=== PATIENT | female | born 1995 | race Caucasian/White ===

== ENCOUNTER 2018-07-14 20:51 | Emergency (ER) | payer OTHER ==
[2018-07-14] MEDS ORDERED: Albuterol/Ipratropium 3.0-0.5 MG/3 ML Neb Soln NEB ONE (20:55)
[2018-07-14] MEDS ORDERED: Famotidine 20 MG/2 ML SDV IVPUSH ONE (20:56)
[2018-07-14] MEDS ORDERED: methylPREDNISolone Sodium Succinate 125 MG/2 ML SDV IVPUSH ONE (20:56)
--- NOTE | 2018-07-14 21:00 | EDM.PDOC ---
ED HPI GENERAL MEDICAL PROBLEM - General Chief Complaint: Respiratory Problem Stated Complaint: UNKNOWN Time Seen by Provider: 07/14/18 20:55 Source of Information: Reports: Patient History Limitations: Reports: No Limitations - History of Present Illness INITIAL COMMENTS - FREE TEXT/NARRATIVE: HISTORY AND PHYSICAL: History of present illness: Patient is a 23-year-old female who presents to the emergency room with concerns of having an asthma attack. She states she is having difficulty breathing, although oxygen saturation is 100% and has clear lung sounds bilaterally. She states she was eating dinner when she started to have some epigastric pain and discomfort. [place] like she was "out of it" for a few seconds , but did not pass out or have a syncopal event. She took some drinks of water; pain continued and she became short of breathe. Decided to come to the ER for evaluation. Patient denies any fever, chills, headache, change in vision, syncope or near syncope. Denies any chest pain, back pain, or cough. Denies any vomiting, diarrhea, constipation or dysuria. Denies any chance of . Has not noted any blood in urine or stool. Patient has been eating and drinking appropriately. Review of systems: As per history of present illness and below otherwise all systems reviewed and negative. Past medical history: As per history of present illness and as reviewed below otherwise noncontributory. Surgical history: As per history of present illness and as reviewed below otherwise noncontributory. Social history: See social history for further information Family history: As per history of present illness and as reviewed below otherwise noncontributory. Physical exam: General: Well-developed and well-nourished 23-year-old female. Anxious appearing , alert and oriented. Nontoxic appearing and in no acute distress. HEENT: Atraumatic, normocephalic, pupils equal and reactive bilaterally, negative for conjunctival pallor or scleral icterus, mucous membranes moist, TMs normal bilaterally, throat clear, neck supple, nontender, trachea midline. No drooling or trismus noted. No meningeal signs. No hot potato voice noted. Lungs: Clear to auscultation, breath sounds equal bilaterally, chest nontender. Heart: S1S2, regular rate and rhythm without overt murmur Abdomen: Soft, nondistended, epigastric tenderness. Negative for masses or hepatosplenomegaly. Negative for costovertebral tenderness. Pelvis: Stable nontender. Genitourinary: Deferred. Rectal: Deferred. Skin: Intact, warm, dry. No lesions or rashes noted. Extremities: Atraumatic, moves all extremities per self with difficulty or deficits, negative for cords or calf pain. Neurovascular unremarkable. Neuro: Awake, alert, oriented. Cranial nerves II through XII unremarkable. Cerebellum unremarkable. Motor and sensory unremarkable throughout. Exam nonfocal. Notes: Patient reports that she does have a history of "stomach ulcers" but has never had to take any medications for this. Patient states she feels improved after the breathing treatment; oxygen sats remain 100%. Lung sounds have been clear throughout ER visit. Appears to may have had an anxiety component related to her respiratory complaints. Waiting remaining labs, which DR Hook will follow. Diagnostics: CBC, CMP, H.pylori Therapeutics: IV fluids, Pepcid, Solu-medrol, Duo Neb, GI cocktail Impression: Epigastric Pain Plan: 1. Crisp diet over the next 24 hours. Advance as tolerated. 2. Follow up with your primary care provider as discussed. 3. Return to the ED as needed as discussed. Definitive disposition and diagnosis as appropriate pending reevaluation and review of above. Middle Abdomen Pain Score (Numeric/FACES): 10 - Related Data Allergies Allergy/AdvReac Type Severity Reaction Status Date / Time amoxicillin Allergy Other Verified 07/14/18 20:58 Penicillins Allergy Other Verified 07/14/18 20:58 Home Meds: Home Meds . [No Known Home Meds] 07/14/18 [History] ED ROS GENERAL - Review of Systems Review Of Systems: ROS reveals no pertinent complaints other than HPI. ED EXAM, GENERAL - Physical Exam Exam: See Below (See dictation) Course - Vital Signs Last Recorded V/S: Last Vital Signs Temp 97.5 F 07/14/18 20:56 Pulse 79 07/14/18 20:56 Resp 26 H 07/14/18 20:56 BP 123/91 H 07/14/18 20:56 Pulse Ox 100 07/14/18 20:56 - Orders/Labs/Meds Orders: Active Orders 24 hr Category Date Time Status RT Aerosol Therapy [RC] ASDIRECTED Care 07/14/18 20:56 Active COMPREHENSIVE METABOLIC PN,CMP [CHEM] Stat Lab 07/14/18 21:20 Received HELICOBACTER PYLORI AB IGG [CHEM] Stat Lab 07/14/18 21:20 Received Labs: Laboratory Tests 07/14/18 Range/Units 21:20 WBC 8.48 (4.0-11.0) K/uL RBC 4.35 (4.30-5.90) M/uL Hgb 12.8 (12.0-16.0) g/dL Hct 38.6 (36.0-46.0) % MCV 88.7 (80.0-98.0) fL MCH 29.4 (27.0-32.0) pg MCHC 33.2 (31.0-37.0) g/dL RDW Std Deviation 39.6 (28.0-62.0) fl RDW Coeff of Corey 12 (11.0-15.0) % Plt Count 251 (150-400) K/uL MPV 9.70 (7.40-12.00) fL Neut % (Auto) 75.9 (48.0-80.0) % Lymph % (Auto) 20.2 (16.0-40.0) % Douglas % (Auto) 3.2 (0.0-15.0) % Eos % (Auto) 0.2 (0.0-7.0) % Baso % (Auto) 0.5 (0.0-1.5) % Neut # (Auto) 6.4 H (1.4-5.7) K/uL Lymph # (Auto) 1.7 (0.6-2.4) K/uL Douglas # (Auto) 0.3 (0.0-0.8) K/uL Eos # (Auto) 0.0 (0.0-0.7) K/uL Baso # (Auto) 0.0 (0.0-0.1) K/uL Nucleated RBC % 0.0 /100WBC Nucleated RBCs # 0 K/uL Meds: Medications Discontinued Medications Generic Name Dose Route Start Last Admin Trade Name Freq PRN Reason Stop Dose Admin Albuterol/Ipratropium 3 ml 07/14/18 20:55 07/14/18 21:00 Duoneb 3.0-0.5 Mg/3 Ml NEB 07/14/18 20:56 3 ml ONETIME ONE Administration Al Hydroxide/Mg Hydroxide 15 0 ml 07/14/18 21:58 ml/ Metoclopramide HCl 5 mg/ PO 07/14/18 21:59 Lidocaine HCl 5 ml ONETIME ONE Famotidine 20 mg 07/14/18 20:56 07/14/18 21:31 Pepcid IVPUSH 07/14/18 20:57 20 mg ONETIME ONE Administration Methylprednisolone Sodium Succinate 125 mg 07/14/18 20:56 07/14/18 21:24 Solu-Medrol IVPUSH 07/14/18 20:57 125 mg ONETIME ONE Administration Departure - Departure Time of Disposition: 21:59 Disposition: Home, Self-Care 01 Clinical Impression: Epigastric pain - Discharge Information Forms: ED Department Discharge Additional Instructions: The following information is given to patients seen in the emergency department who are being discharged to home. This information is to outline your options for follow-up care. We provide all patients seen in our emergency department with a follow-up referral. The need for follow-up, as well as the timing and circumstances, are variable depending upon the specifics of your emergency department visit. If you don't have a primary care physician on staff, we will provide you with a referral. We always advise you to contact your personal physician following an emergency department visit to inform them of the circumstance of the visit and for follow-up with them and/or the need for any referrals to a consulting specialist. The emergency department will also refer you to a specialist when appropriate. This referral assures that you have the opportunity for follow-up care with a specialist. All of these measure are taken in an effort to provide you with optimal care, which includes your follow-up. Under all circumstances we always encourage you to contact your private physician who remains a resource for coordinating your care. When calling for follow-up care, please make the office aware that this follow-up is from your recent emergency room visit. If for any reason you are refused follow-up, please contact the Emergency Department at and asked to speak to the emergency department charge nurse. [facility] [address] [place] [id number] [place] [address] 1. Crisp diet over the next 24 hours. Advance as tolerated. 2. Follow up with your primary care provider as discussed. 3. Return to the ED as needed as discussed. - My Orders Last 24 Hours: My Active Orders 07/14/18 20:56 RT Aerosol Therapy [RC] ASDIRECTED 07/14/18 21:20 COMPREHENSIVE METABOLIC PN,CMP [CHEM] Stat HELICOBACTER PYLORI AB IGG [CHEM] Stat - Assessment/Plan Last 24 Hours: My Active Orders 07/14/18 20:56 RT Aerosol Therapy [RC] ASDIRECTED 07/14/18 21:20 COMPREHENSIVE METABOLIC PN,CMP [CHEM] Stat HELICOBACTER PYLORI AB IGG [CHEM] Stat
[2018-07-14] MEDS ORDERED: Alum Hydrox/Mag Hydrox/Simeth 15 ML, Metoclopramide 5 MG, Lidocaine 2% 5 ML PO ONE ×3 (21:58)
[2018-07-14 22:03] LABS: CHLORIDE,CL 103 mmol/L (98-107); SODIUM,NA 141 mmol/L (136-145)
== END 2018-07-14 22:19 | disposition home or self-care (01) ==
LOC: MW.ED 20:51
DX: R10.13 Epigastric pain (principal); Z88.1 Allergy status to other antibiotic agents; Z88.0 Allergy status to penicillin
CPT/HCPCS: 36415; 80053; 85025; 86677; 96374; 96375; 99285; A9270; J2930; J3490; 99283; J7620-GY

== ENCOUNTER 2018-11-17 14:36 | Emergency (ER) | payer SELFPAY ==
--- NOTE | 2018-11-17 14:39 | EDM.PDOC ---
ED HPI GENERAL MEDICAL PROBLEM - General Stated Complaint: THROAT COMPLAINT Time Seen by Provider: 11/17/18 14:38 Source of Information: Reports: Patient History Limitations: Reports: No Limitations - History of Present Illness INITIAL COMMENTS - FREE TEXT/NARRATIVE: HISTORY AND PHYSICAL: History of present illness: Patient is a 23-year-old female who presents to the emergency room with complaints of throat pain. She states she does have a history of having strep and tonsillitis 1-2 times per year. She has been told in the past that she should have a tonsillectomy, although is fearful of this procedure. Patient denies any fever, chills, headache, change in vision, syncope or near syncope. Denies any chest pain, back pain, shortness of breath or cough. Denies any GI or symptoms. Patient has been eating and drinking appropriately. Review of systems: As per history of present illness and below otherwise all systems reviewed and negative. Past medical history: As per history of present illness and as reviewed below otherwise noncontributory. Surgical history: As per history of present illness and as reviewed below otherwise noncontributory. Social history: See social history for further information Family history: As per history of present illness and as reviewed below otherwise noncontributory. Physical exam: General: Well-developed and well-nourished 23-year-old female. Alert and oriented. Nontoxic appearing and in no acute distress. HEENT: Atraumatic, normocephalic, pupils equal and reactive bilaterally, negative for conjunctival pallor or scleral icterus, mucous membranes moist, TMs normal bilaterally, throat erythematous with exudate bilaterally (no pillar shifting/fullness), neck supple, nontender, trachea midline. No drooling or trismus noted. No meningeal signs. No hot potato voice noted. Lungs: Clear to auscultation, breath sounds equal bilaterally, chest nontender. Heart: S1S2, regular rate and rhythm without overt murmur Abdomen: Soft, nondistended, nontender. Skin: Intact, warm, dry. No lesions or rashes noted. Extremities: Atraumatic, moves all extremities per self without difficulty or deficits, negative for cords or calf pain. Neurovascular unremarkable. Neuro: Awake, alert, oriented. Cranial nerves II through XII unremarkable. Cerebellum unremarkable. Motor and sensory unremarkable throughout. Exam nonfocal. Notes: Due to physical assessment I will treat with antibiotics. She does have allergies to amoxicillin and penicillin, Z-Van prescribed. Supportive care measures were reviewed and discussed. Voices understanding and is agreeable to plan of care. Denies any further questions or concerns at this time. Diagnostics: None Therapeutics: None Prescription: Zapk Impression: Strep Throat Plan: 1. Take your medication as directed. 2. Warm Salt water gargles (rinse and spit) 3-4 x daily. Please get a new tooth brush after completion of your medication 3. Tylenol and or ibuprofen as needed for pain management. 4. Follow-up with your primary care provider in the next 1-2 days. Return to the ED as needed and as discussed. Definitive disposition and diagnosis as appropriate pending reevaluation and review of above. Throat Pain Score (Numeric/FACES): 7 - Related Data Allergies Allergy/AdvReac Type Severity Reaction Status Date / Time amoxicillin Allergy Swelling Verified 11/17/18 14:42 Penicillins Allergy Swelling Verified 11/17/18 14:42 red dye Allergy Hives Verified 11/17/18 14:42 Home Meds: Home Meds Azithromycin [Zithromax] 1 dose PO DAILY 5 Days #6 tab 11/17/18 [Rx] Past Medical History - Past Health History Medical/Surgical History: Denies Medical/Surgical History Social & Family History - Family History Family Medical History: Noncontributory ED ROS ENT - Review of Systems Review Of Systems: ROS reveals no pertinent complaints other than HPI. ED EXAM, ENT - Physical Exam Exam: See Below (See dictation) Course - Vital Signs Last Recorded V/S: Last Vital Signs Temp 97.2 F 11/17/18 14:42 Pulse 86 11/17/18 14:59 Resp 16 11/17/18 14:59 BP 128/69 11/17/18 14:59 Pulse Ox 97 11/17/18 14:59 Departure - Departure Time of Disposition: 14:49 Disposition: Home, Self-Care 01 Clinical Impression: Tonsillitis - Discharge Information Prescriptions: Azithromycin [Zithromax] 1 dose PO DAILY 5 Days #6 tab Instructions: Tonsillitis, [id number] Referrals: PCP,Unknown [Primary Care Provider] - Forms: ED Department Discharge Additional Instructions: The following information is given to patients seen in the emergency department who are being discharged to home. This information is to outline your options for follow-up care. We provide all patients seen in our emergency department with a follow-up referral. The need for follow-up, as well as the timing and circumstances, are variable depending upon the specifics of your emergency department visit. If you don't have a primary care physician on staff, we will provide you with a referral. We always advise you to contact your personal physician following an emergency department visit to inform them of the circumstance of the visit and for follow-up with them and/or the need for any referrals to a consulting specialist. The emergency department will also refer you to a specialist when appropriate. This referral assures that you have the opportunity for follow-up care with a specialist. All of these measure are taken in an effort to provide you with optimal care, which includes your follow-up. Under all circumstances we always encourage you to contact your private physician who remains a resource for coordinating your care. When calling for follow-up care, please make the office aware that this follow-up is from your recent emergency room visit. If for any reason you are refused follow-up, please contact the [facility] Emergency Department at and asked to speak to the emergency department charge nurse. [facility] [address] [place] [id number] [facility] [address] [place] [id number] 1. Take your medication as directed. 2. Warm Salt water gargles (rinse and spit) 3-4 x daily. Please get a new tooth brush after completion of your medication 3. Tylenol and or ibuprofen as needed for pain management. 4. Follow-up with your primary care provider in the next 1-2 days. Return to the ED as needed and as discussed.
== END 2018-11-17 14:59 | disposition home or self-care (01) ==
LOC: MW.ED 14:36
DX: J02.0 Streptococcal pharyngitis (principal); Z88.1 Allergy status to other antibiotic agents; Z88.0 Allergy status to penicillin; Z91.041 Radiographic dye allergy status
CPT/HCPCS: 99282; 99283

== ENCOUNTER 2018-11-19 19:20 | Emergency (ER) | payer SELFPAY ==
[2018-11-19] MEDS ORDERED: Benzocaine 20% Topical Spray UD MUCMEM ONE (20:04)
[2018-11-19] MEDS ORDERED: Lidocaine 2% Viscous Solution 15 ML Cup PO ONE (20:04)
--- NOTE | 2018-11-19 20:08 | EDM.PDOC ---
ED HPI GENERAL MEDICAL PROBLEM - General Chief Complaint: General Stated Complaint: TONSILITIS Time Seen by Provider: 11/19/18 19:44 Source of Information: Reports: Patient History Limitations: Reports: No Limitations - History of Present Illness INITIAL COMMENTS - FREE TEXT/NARRATIVE: HISTORY AND PHYSICAL: History of present illness: Patient is a 23-year-old female presents to the ED today for concern of left- sided tooth pain 2 days. Patient states she was seen in the ED a few days ago and was treated for tonsillitis. Patient states she took the antibiotics as prescribed and her tonsillitis has improved, and her throat is no longer painful. However, patient states she began to have bottom tooth pain on the left side where her wisdom tooth is growing in shortly after improvement of her tonsils. Patient states she's been taking ibuprofen, Tylenol, and had some leftover oxycodone and states isnt helping much. Patient states the tooth pain radiates into her left and down to the front of her jaw. Patient states she has surgery scheduled in one month to get her wisdom tooth removed. Patient states she has been able to eat and drink without difficulty as long she chews on the other side of her mouth. Patient denies any other symptoms or concerns at this time. Patient was seen in the ED on 11/17/18 with complaints of throat pain. At that time patient was treated for strep tonsillitis/pharyngitis with Azithromycin. There is no mention of tooth pain at that time. Patient denies fever, chills, chest pain, shortness of breath, or cough. Denies headache, neck stiff ness, change in vision, syncope, or near syncope. Denies nausea, vomiting, abdominal pain, diarrhea, constipation, or dysuria. Has not noted any blood in urine or stool. Patient has been eating and drinking appropriately. Review of systems: As per history of present illness and below otherwise all systems reviewed and negative. Past medical history: As per history of present illness and as reviewed below otherwise noncontributory. Surgical history: As per history of present illness and as reviewed below otherwise noncontributory. Social history: See social history for further information Family history: As per history of present illness and as reviewed below otherwise noncontributory. Physical exam: General: Patient is alert, oriented, and in no acute distress. Patient sitting comfortably on exam table. HEENT: Atraumatic, normocephalic, pupils equal and reactive bilaterally, negative for conjunctival pallor or scleral icterus, mucous membranes moist, TMs normal bilaterally, throat clear, neck supple, nontender, trachea midline. No meningeal signs. No drooling or trismus noted.No hot potato voice noted. The area of gumline where tooth #17 would be located, there is small surfacing of the tooth in the gumline with surrounding erythema of the gumline with mild erythema surrounding the surfacing tooth. Severe pain with palpation of this area. No surrounding edema of the mandible. No obvious swelling of the face or neck. Negative pain with palpation of mandible or neck, negative lymphadenopathy. Lungs: Clear to auscultation, breath sounds equal bilaterally, chest nontender. Heart: S1S2, regular rate and rhythm without overt murmur Abdomen: Soft, nondistended, nontender. Negative for masses or hepatosplenomegaly. Negative for costovertebral tenderness. Pelvis: Stable nontender. Genitourinary: Deferred. Rectal: Deferred. Skin: Intact, warm, dry. No lesions or rashes noted. Extremities: Atraumatic, negative for cords or calf pain. Neurovascular unremarkable. Neuro: Awake, alert, oriented. Cranial nerves II through XII unremarkable. Cerebellum unremarkable. Motor and sensory unremarkable throughout. Exam nonfocal. Notes: Patient was treated for tonsillitis 2 days ago and states that her tonsils have improved. On exam, her tonsils appear without exudate and nonerythematous. On exam, the potential for early dental abscess versus pain with discomfort of ingrowing wisdom tooth. Will give antibiotic for dental abscess as well as dental balls for pain. Discussed the importance for follow-up with the dentist. Voices understanding and is agreeable to plan of care. Denies any further questions or concerns at this time. Diagnostics: None Therapeutics: Dental balls Prescription: Clindamycin Impression: Dental abscess vs ingrowing tooth discomfort Plan: 1. Please take medication as prescribed. 2. Tylenol and/or ibuprofen as directed and as needed for pain management. 3. "Tooth Balls" have been given to you; apply along the gumline every 2-3 hours as needed. Do not swallow these; external use only. 4. Follow-up with a dentist for definitive care. Return to the ED as needed and as discussed. Definitive disposition and diagnosis as appropriate pending reevaluation and review of above. wisdom tooth Pain Score (Numeric/FACES): 10 - Related Data Allergies Allergy/AdvReac Type Severity Reaction Status Date / Time amoxicillin Allergy Swelling Verified 11/17/18 14:42 Penicillins Allergy Swelling Verified 11/17/18 14:42 red dye Allergy Hives Verified 11/17/18 14:42 Home Meds: Home Meds Azithromycin [Zithromax] 1 dose PO DAILY 5 Days #6 tab 11/17/18 [Rx] Past Medical History - Past Health History Medical/Surgical History: Denies Medical/Surgical History HEENT History: Reports: None Cardiovascular History: Reports: None Respiratory History: Reports: None Gastrointestinal History: Reports: None Genitourinary History: Reports: None 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 Musculoskeletal History: Reports: None Neurological History: Reports: None Psychiatric History: Reports: None Endocrine/Metabolic History: Reports: None Hematologic History: Reports: None Oncologic (Cancer) History: Reports: None - Infectious Disease History Infectious Disease History: Reports: None Social & Family History - Family History Family Medical History: Noncontributory - Tobacco Use Smoking Status *Q: Never Smoker - Caffeine Use Caffeine Use: Reports: None - Recreational Drug Use Recreational Drug Use: No ED ROS GENERAL - Review of Systems Review Of Systems: ROS reveals no pertinent complaints other than HPI. ED EXAM, GENERAL - Physical Exam Exam: See Below (See dictation) Course - Vital Signs Last Recorded V/S: Last Vital Signs Temp 36.6 C 11/19/18 19:36 Pulse 75 11/19/18 19:36 Resp 14 11/19/18 19:36 BP 136/84 11/19/18 19:36 Pulse Ox 98 11/19/18 19:36 - Orders/Labs/Meds Meds: Medications Discontinued Medications Generic Name Dose Route Start Last Admin Trade Name Freq PRN Reason Stop Dose Admin Benzocaine 2 each 11/19/18 20:04 11/19/18 20:20 Hurricaine One 20% MUCMEM 11/19/18 20:05 2 each ONETIME ONE Administration Lidocaine HCl 15 ml 11/19/18 20:04 11/19/18 20:20 Xylocaine 2% Viscous PO 11/19/18 20:05 15 ml ONETIME ONE Administration Departure - Departure Time of Disposition: 20:07 Disposition: Home, Self-Care 01 Clinical Impression: Dental abscess, Tooth pain - Discharge Information Instructions: Dental Abscess, [id number] Referrals: PCP,None [Primary Care Provider] - Forms: ED Department Discharge Additional Instructions: The following information is given to patients seen in the emergency department who are being discharged to home. This information is to outline your options for follow-up care. We provide all patients seen in our emergency department with a follow-up referral. The need for follow-up, as well as the timing and circumstances, are variable depending upon the specifics of your emergency department visit. If you don't have a primary care physician on staff, we will provide you with a referral. We always advise you to contact your personal physician following an emergency department visit to inform them of the circumstance of the visit and for follow-up with them and/or the need for any referrals to a consulting specialist. The emergency department will also refer you to a specialist when appropriate. This referral assures that you have the opportunity for follow-up care with a specialist. All of these measure are taken in an effort to provide you with optimal care, which includes your follow-up. Under all circumstances we always encourage you to contact your private physician who remains a resource for coordinating your care. When calling for follow-up care, please make the office aware that this follow-up is from your recent emergency room visit. If for any reason you are refused follow-up, please contact the [facility] Emergency Department at and asked to speak to the emergency department charge nurse. [facility] Primary Care [address] [place] [id number] [address] 1. Please take medication as prescribed. 2. Tylenol and/or ibuprofen as directed and as needed for pain management. 3. "Tooth Balls" have been given to you; apply along the gumline every 2-3 hours as needed. Do not swallow these; external use only. 4. Follow-up with a dentist for definitive care. Return to the ED as needed and as discussed.
== END 2018-11-19 20:21 | disposition home or self-care (01) ==
LOC: MW.ED 19:20
DX: K04.7 Periapical abscess without sinus (principal); Z88.0 Allergy status to penicillin; Z91.018 Allergy to other foods
CPT/HCPCS: 99282; A9270

== ENCOUNTER 2018-12-23 15:59 | Emergency (ER) | payer SELFPAY ==
[2018-12-23] MEDS ORDERED: Sodium Chloride 0.9% 1,000 ML IV ONE ×2 (16:21→19:13)
--- NOTE | 2018-12-23 16:22 | EDM.PDOC ---
ED HPI GENERAL MEDICAL PROBLEM - General Chief Complaint: ENT Problem Stated Complaint: SORE THROAT, RASH, HEADACHE Time Seen by Provider: 12/23/18 16:22 Source of Information: Reports: Patient - History of Present Illness INITIAL COMMENTS - FREE TEXT/NARRATIVE: HISTORY AND PHYSICAL: History of present illness: [She presents with persistent sore throat over the last month she has been on a couple of rounds of antibiotics azithromycin and clindamycin she is scheduled to see ENT in [facility] however not until early January Fever nausea vomiting chills sweats no muffled voice drooling or trismus] Review of systems: As per history of present illness and below otherwise all systems reviewed and negative. Past medical history: As per history of present illness and as reviewed below otherwise noncontributory. Surgical history: As per history of present illness and as reviewed below otherwise noncontributory. Social history: No reported history of drug or alcohol abuse. Family history: As per history of present illness and as reviewed below otherwise noncontributory. Physical exam: HEENT: Atraumatic, normocephalic, pupils reactive, negative for conjunctival pallor or scleral icterus, mucous membranes moist, throat clear, neck supple, nontender, trachea midline. Moderate erythema anterior lymph node chains swelling no muffled voice drooling or trismus however white patchy exudate noted Lungs: Clear to auscultation, breath sounds equal bilaterally, chest nontender. Heart: S1S2, regular, negative for clicks, rubs, or JVD. Abdomen: Soft, nondistended, nontender. Negative for masses or hepatosplenomegaly. Negative for costovertebral tenderness. Pelvis: Stable nontender. Genitourinary: Deferred. Rectal: Deferred. Extremities: Atraumatic, negative for cords or calf pain. Neurovascular unremarkable. Neuro: Awake, alert, oriented. Cranial nerves II through XII unremarkable. Cerebellum unremarkable. Motor and sensory unremarkable throughout. Exam nonfocal. Diagnostics: [CT soft tissue neck CBC BMP ] Therapeutics: decadron 10 mg IV Prednisone 20 mg by mouth daily 5 days Clindamycin Follow-up with ENT as scheduled Follow-up with primary care as needed ] Impression: [ pharyngitis] Definitive disposition and diagnosis as appropriate pending reevaluation and review of above. Throat Pain Score (Numeric/FACES): 9 - Related Data Allergies Allergy/AdvReac Type Severity Reaction Status Date / Time amoxicillin Allergy Swelling Verified 12/23/18 16:07 Penicillins Allergy Swelling Verified 12/23/18 16:07 red dye Allergy Hives Verified 12/23/18 16:07 Home Meds: Home Meds . [No Known Home Meds] 12/23/18 [History] Past Medical History - Past Health History Medical/Surgical History: Denies Medical/Surgical History HEENT History: Reports: Other (See Below) Other HEENT History: recurrent tonsilitis. 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 Musculoskeletal History: Reports: None Neurological History: Reports: None Psychiatric History: Reports: Anxiety Endocrine/Metabolic History: Reports: None Hematologic History: Reports: None Immunologic History: Reports: None Oncologic (Cancer) History: Reports: None Dermatologic History: Reports: None - Infectious Disease History Infectious Disease History: Reports: None - Past Surgical History Head Surgeries/Procedures: Reports: None Social & Family History - Family History Family Medical History: Noncontributory - Tobacco Use Smoking Status *Q: Never Smoker - Caffeine Use Caffeine Use: Reports: None - Recreational Drug Use Recreational Drug Use: No ED ROS GENERAL - Review of Systems Review Of Systems: See Below ED EXAM, GENERAL - Physical Exam Exam: See Below Course - Vital Signs Last Recorded V/S: Last Vital Signs Temp 97.6 F 12/23/18 16:04 Pulse 94 12/23/18 18:36 Resp 20 12/23/18 18:36 BP 122/81 12/23/18 18:36 Pulse Ox 98 12/23/18 18:36 - Orders/Labs/Meds Orders: Active Orders 24 hr Category Date Time Status HCG QUALITATIVE,URINE [URCHEM] Stat Lab 12/23/18 16:20 Ordered UA RFX JAVI AND CULT IF INDIC [URIN] Stat Lab 12/23/18 16:20 Ordered Sodium Chloride 0.9% [Normal Saline] 1,000 ml Med 12/23/18 19:13 Ordered IV STAT Labs: Laboratory Tests 12/23/18 12/23/18 12/23/18 Range/Units 16:30 16:30 16:30 WBC 8.36 (4.0-11.0) K/uL RBC 4.43 (4.30-5.90) M/uL Hgb 13.1 (12.0-16.0) g/dL Hct 40.2 (36.0-46.0) % MCV 90.7 (80.0-98.0) fL MCH 29.6 (27.0-32.0) pg MCHC 32.6 (31.0-37.0) g/dL RDW Std Deviation 42.0 (28.0-62.0) fl RDW Coeff of Corey 13 (11.0-15.0) % Plt Count 217 (150-400) K/uL MPV 9.90 (7.40-12.00) fL Neut % (Auto) 76.8 (48.0-80.0) % Lymph % (Auto) 14.0 L (16.0-40.0) % [place] % (Auto) 9.0 (0.0-15.0) % Eos % (Auto) 0.0 (0.0-7.0) % Baso % (Auto) 0.2 (0.0-1.5) % Neut # (Auto) 6.4 H (1.4-5.7) K/uL Lymph # (Auto) 1.2 (0.6-2.4) K/uL [place] # (Auto) 0.8 (0.0-0.8) K/uL Eos # (Auto) 0.0 (0.0-0.7) K/uL Baso # (Auto) 0.0 (0.0-0.1) K/uL Nucleated RBC % 0.0 /100WBC Nucleated RBCs # 0 K/uL Sodium 139 (136-145) mmol/L Potassium 3.8 (3.5-5.1) mmol/L Chloride 102 (98-107) mmol/L Carbon Dioxide 27.3 (21.0-32.0) mmol/L BUN 9 (7.0-18.0) mg/dL Creatinine 0.9 (0.6-1.0) mg/dL Est Cr Clr Drug Dosing 91.79 mL/min Estimated GFR (MDRD) > 60.0 ml/min Glucose 94 (74-106) mg/dL Calcium 9.2 (8.5-10.1) mg/dL HCG, Qual NEGATIVE (NEG) Meds: Medications Discontinued Medications Generic Name Dose Route Start Last Admin Trade Name Arnav PRN Reason Stop Dose Admin Dexamethasone 10 mg 12/23/18 18:50 12/23/18 18:58 Dexamethasone IVPUSH 12/23/18 18:51 10 mg ONETIME ONE Administration Sodium Chloride 1,000 mls @ 999 mls/hr 12/23/18 16:21 12/23/18 16:37 Normal Saline IV 12/23/18 17:21 999 mls/hr STAT ONE Administration Iopamidol 75 ml 12/23/18 18:55 12/23/18 18:55 Isovue Multipack-370 (76%) IVPUSH 12/23/18 18:56 75 ml ONETIME STA Administration Departure - Departure Time of Disposition: 19:15 Disposition: Home, Self-Care 01 Condition: Good Clinical Impression: Pharyngitis - Discharge Information Referrals: PCP,Unknown [Primary Care Provider] - Forms: ED Department Discharge Additional Instructions: Dictation as prescribed Follow-up with ENT as scheduled Follow-up with primary care as needed reTurn er if symptoms persist or worsen or if new concerning symptoms develop [facility] - Primary Care [address] [place] [address] The following information is given to patients seen in the emergency department who are being discharged to home. This information is to outline your options for follow-up care. We provide all patients seen in our emergency department with a follow-up referral. The need for follow-up, as well as the timing and circumstances, are variable depending upon the specifics of your emergency department visit. If you don't have a primary care physician on staff, we will provide you with a referral. We always advise you to contact your personal physician following an emergency department visit to inform them of the circumstance of the visit and for follow-up with them and/or the need for any referrals to a consulting specialist. The emergency department will also refer you to a specialist when appropriate. This referral assures that you have the opportunity for follow-up care with a specialist. All of these measure are taken in an effort to provide you with optimal care, which includes your follow-up. Under all circumstances we always encourage you to contact your private physician who remains a resource for coordinating your care. When calling for follow-up care, please make the office aware that this follow-up is from your recent emergency room visit. If for any reason you are refused follow-up, please contact the [facility] emergency department at and asked to speak to the emergency department charge nurse. - My Orders Last 24 Hours: My Active Orders 12/23/18 16:20 HCG QUALITATIVE,URINE [URCHEM] Stat UA RFX JAVI AND CULT IF INDIC [URIN] Stat 12/23/18 19:13 Sodium Chloride 0.9% [Normal Saline] 1,000 ml IV STAT - Assessment/Plan Last 24 Hours: My Active Orders 12/23/18 16:20 HCG QUALITATIVE,URINE [URCHEM] Stat UA RFX JAVI AND CULT IF INDIC [URIN] Stat 12/23/18 19:13 Sodium Chloride 0.9% [Normal Saline] 1,000 ml IV STAT
[2018-12-23 16:59] LABS: BLOOD UREA NITROGEN,BUN 9 mg/dL (7.0-18.0); CARBON DIOXIDE,CO2 27.3 mmol/L (21.0-32.0); CHLORIDE,CL 102 mmol/L (98-107); GLUCOSE RANDOM 94 mg/dL (74-106); POTASSIUM,K 3.8 mmol/L (3.5-5.1); SODIUM,NA 139 mmol/L (136-145)
[2018-12-23] MEDS ORDERED: Dexamethasone 10 MG/ML SDV IVPUSH ONE (18:50)
[2018-12-23] MEDS ORDERED: Iopamidol 755 MG/ML 500 ML Multipack Bottle IVPUSH STA (18:55)
--- NOTE | 2018-12-23 19:04 | CT ---
INDICATION: Neck pain. Rule out abscess. COMPARISON: None available TECHNIQUE: CT examination of the neck is performed using spiral technique during the uneventful intravenous administration of 98 cc of Isovue 370. 3 mm thick axial sections were made along with coronal and sagittal sections. Please note that all CT scans at this facility use dose modulation, iterative reconstruction, and/or weight-based dosing when appropriate to reduce radiation dose to as low as reasonably achievable. FINDINGS: I do not see any inflammatory process, mass, or swelling on today`s study. The airway structures are normal in appearance. There is mild prominence of the lymph nodes in the submandibular regions, right greater than left, without reaching the threshold to be describes lymphadenopathy. The short-axis diameter of the right-sided level 1 B lymph node is 1.3 centimeters and of the left side level 1 B lymph node is 1.0 centimeters. There is no sign of cervical mass or adenopathy on today`s study. The salivary glands are normal in appearance. The visualized posterior fossa, mastoids, skull base, orbits, and paranasal sinuses are normal in appearance. The great vessels are unremarkable. The thyroid gland is normal in appearance. The visualized upper chest is clear. The visualized upper mediastinum is normal in appearance. The osseous structures are unremarkable. IMPRESSION: Mild prominence of lymph nodes in the submandibular region, right greater than left, without reaching the threshold to be described as lymphadenopathy. These are probably reactive lymph nodes. Otherwise normal CT examination of the neck with contrast. Please note that all CT scans at this facility use dose modulation, iterative reconstruction, and/or weight-based dosing when appropriate to reduce radiation dose to as low as reasonably achievable. Dictated by Rom Eldridge MD @ Dec 23 2018 6:57PM Signed by Dr. Rom Eldridge @ Dec 23 2018 7:01PM
[2018-12-23] MEDS ORDERED: Lidocaine 2% Viscous Solution 15 ML Cup PO ONE (19:59)
== END 2018-12-23 20:22 | disposition home or self-care (01) ==
LOC: MW.ED 15:59
DX: J02.9 Acute pharyngitis, unspecified (principal); Z88.1 Allergy status to other antibiotic agents; Z88.0 Allergy status to penicillin; Z91.041 Radiographic dye allergy status
CPT/HCPCS: 36415; 70491; 80048; 84703; 85025; 96361; 96374; 99284; A9270; J1100; J7040; Q9967

== ENCOUNTER 2018-12-25 22:22 | Emergency (ER) | payer SELFPAY ==
[2018-12-25] MEDS ORDERED: Sodium Chloride 0.9% 1,000 ML IV ONE (22:43)
[2018-12-25 23:26] LABS: BLOOD UREA NITROGEN,BUN 12 mg/dL (7.0-18.0); CARBON DIOXIDE,CO2 27.1 mmol/L (21.0-32.0); CHLORIDE,CL 99 mmol/L (98-107); GLUCOSE RANDOM 123 mg/dL (74-106); POTASSIUM,K 3.3 mmol/L (3.5-5.1); SODIUM,NA 135 mmol/L (136-145)
--- NOTE | 2018-12-26 00:27 | EDM.PDOC ---
ED HPI GENERAL MEDICAL PROBLEM - General Chief Complaint: ENT Problem Stated Complaint: UNABLE TO WALK Time Seen by Provider: 12/25/18 22:37 - History of Present Illness INITIAL COMMENTS - FREE TEXT/NARRATIVE: HISTORY AND PHYSICAL: History of present illness: Patient is a 23-year-old female sensory concern of sore throat and dehydration patient states she's been seen on multiple occasions had an workup including CT of her neck that was negative for any abscess she has had a full course of antibiotics with her initial visit and a subsequent course that she is currently in the middle of. Patient denies fever chills or other concern Review of systems: As per history of present illness and below otherwise all systems reviewed and negative. Past medical history: As per history of present illness and as reviewed below otherwise noncontributory. Surgical history: As per history of present illness and as reviewed below otherwise noncontributory. Social history: No reported history of drug or alcohol abuse. Family history: As per history of present illness and as reviewed below otherwise noncontributory. Physical exam: HEENT: Atraumatic, normocephalic, pupils reactive, negative for conjunctival pallor or scleral icterus, mucous membranes moist, throat injected no peritonsillar fullness over her deviation trismus or hot potato voice, neck supple, nontender, trachea midline. Lungs: Clear to auscultation, breath sounds equal bilaterally, chest nontender. Heart: S1S2, regular, negative for clicks, rubs, or JVD. Abdomen: Soft, nondistended, nontender. Negative for masses or hepatosplenomegaly. Negative for costovertebral tenderness. Pelvis: Stable nontender. Genitourinary: Deferred. Rectal: Deferred. Extremities: Atraumatic, negative for cords or calf pain. Neurovascular unremarkable. Neuro: Awake, alert, oriented. Cranial nerves II through XII unremarkable. Cerebellum unremarkable. Motor and sensory unremarkable throughout. Exam nonfocal. Diagnostics: CBC CMP lactic acid monoscreen UA UCG Therapeutics: Saline 1 L bolus Impression: #1 dehydration #2 medical screening exam #3 pharyngitis Definitive disposition and diagnosis as appropriate pending reevaluation and review of above. Throat Pain Score (Numeric/FACES): 9 - Related Data Allergies Allergy/AdvReac Type Severity Reaction Status Date / Time amoxicillin Allergy Swelling Verified 12/25/18 22:34 Penicillins Allergy Swelling Verified 12/25/18 22:34 red dye Allergy Hives Verified 12/25/18 22:34 Home Meds: Home Meds . [No Known Home Meds] 12/23/18 [History] Past Medical History - Past Health History Medical/Surgical History: Denies Medical/Surgical History HEENT History: Reports: Other (See Below) Other HEENT History: recurrent tonsilitis. 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 Musculoskeletal History: Reports: None Neurological History: Reports: None Psychiatric History: Reports: Anxiety Endocrine/Metabolic History: Reports: None Hematologic History: Reports: None Immunologic History: Reports: None Oncologic (Cancer) History: Reports: None Dermatologic History: Reports: None - Infectious Disease History Infectious Disease History: Reports: None - Past Surgical History Head Surgeries/Procedures: Reports: None Social & Family History - Family History Family Medical History: Noncontributory - Tobacco Use Smoking Status *Q: Never Smoker Second Hand Smoke Exposure: No - Caffeine Use Caffeine Use: Reports: Coffee - Recreational Drug Use Recreational Drug Use: No ED ROS GENERAL - Review of Systems Review Of Systems: ROS reveals no pertinent complaints other than HPI. ED EXAM, GENERAL - Physical Exam Exam: See Below (Dictation) Course - Vital Signs Last Recorded V/S: Last Vital Signs Temp 36.9 C 12/25/18 22:34 Pulse 99 12/25/18 22:34 Resp 18 12/25/18 22:34 BP 104/73 12/25/18 22:34 Pulse Ox 96 12/25/18 22:34 - Orders/Labs/Meds Orders: Active Orders 24 hr Category Date Time Status CULTURE BLOOD [BC] Stat Lab 12/25/18 23:01 Received CULTURE BLOOD [BC] Stat Lab 12/25/18 23:10 Received CULTURE STREP A CONFIRMATION [RM] Stat Lab 12/25/18 00:00 Results STREP SCRN A RAPID W CULT CONF [RM] Stat Lab 12/25/18 00:00 Results Blood Culture x2 Reflex Set [OM.PC] Stat Oth 12/25/18 22:42 Ordered Labs: Laboratory Tests 12/25/18 12/25/18 12/25/18 Range/Units 23:01 23:01 23:01 WBC 7.57 (4.0-11.0) K/uL RBC 4.20 L (4.30-5.90) M/uL Hgb 12.4 (12.0-16.0) g/dL Hct 37.8 (36.0-46.0) % MCV 90.0 (80.0-98.0) fL MCH 29.5 (27.0-32.0) pg MCHC 32.8 (31.0-37.0) g/dL RDW Std Deviation 41.8 (28.0-62.0) fl RDW Coeff of Corey 13 (11.0-15.0) % Plt Count 236 (150-400) K/uL MPV 9.60 (7.40-12.00) fL Neut % (Auto) 77.5 (48.0-80.0) % Lymph % (Auto) 11.8 L (16.0-40.0) % [place] % (Auto) 10.6 (0.0-15.0) % Eos % (Auto) 0.0 (0.0-7.0) % Baso % (Auto) 0.1 (0.0-1.5) % Neut # (Auto) 5.9 H (1.4-5.7) K/uL Lymph # (Auto) 0.9 (0.6-2.4) K/uL [place] # (Auto) 0.8 (0.0-0.8) K/uL Eos # (Auto) 0.0 (0.0-0.7) K/uL Baso # (Auto) 0.0 (0.0-0.1) K/uL Nucleated RBC % 0.0 /100WBC Nucleated RBCs # 0 K/uL Lactate 1.6 (0.20-2.00) mmol/L Sodium 135 L (136-145) mmol/L Potassium 3.3 L (3.5-5.1) mmol/L Chloride 99 (98-107) mmol/L Carbon Dioxide 27.1 (21.0-32.0) mmol/L BUN 12 (7.0-18.0) mg/dL Creatinine 1.1 H (0.6-1.0) mg/dL Est Cr Clr Drug Dosing 75.10 mL/min Estimated GFR (MDRD) > 60.0 ml/min Glucose 123 H (74-106) mg/dL Calcium 8.6 (8.5-10.1) mg/dL Total Bilirubin 0.2 (0.2-1.0) mg/dL AST 16 (15-37) IU/L ALT 16 (14-63) IU/L Alkaline Phosphatase 53 (46-116) U/L Total Protein 7.0 (6.4-8.2) g/dL Albumin 3.2 L (3.4-5.0) g/dL Globulin 3.8 (2.6-4.0) g/dL Albumin/Globulin Ratio 0.8 L (0.9-1.6) HCG, Qual (NEG) Urine Color Urine Appearance Urine pH (5.0-8.0) Ur Specific [place] (1.001-1.035) Urine Protein (NEGATIVE) mg/dL Urine Glucose (UA) (NEGATIVE) mg/dL Urine Ketones (NEGATIVE) mg/dL Urine Occult Blood (NEGATIVE) Urine Nitrite (NEGATIVE) Urine Bilirubin (NEGATIVE) Urine Urobilinogen (<2.0) EU/dL Ur Leukocyte Esterase (NEGATIVE) Monoscreen (NEG) 12/25/18 12/26/18 Range/Units 23:01 00:00 WBC (4.0-11.0) K/uL RBC (4.30-5.90) M/uL Hgb (12.0-16.0) g/dL Hct (36.0-46.0) % MCV (80.0-98.0) fL MCH (27.0-32.0) pg MCHC (31.0-37.0) g/dL RDW Std Deviation (28.0-62.0) fl RDW Coeff of Corey (11.0-15.0) % Plt Count (150-400) K/uL MPV (7.40-12.00) fL Neut % (Auto) (48.0-80.0) % Lymph % (Auto) (16.0-40.0) % [place] % (Auto) (0.0-15.0) % Eos % (Auto) (0.0-7.0) % Baso % (Auto) (0.0-1.5) % Neut # (Auto) (1.4-5.7) K/uL Lymph # (Auto) (0.6-2.4) K/uL [place] # (Auto) (0.0-0.8) K/uL Eos # (Auto) (0.0-0.7) K/uL Baso # (Auto) (0.0-0.1) K/uL Nucleated RBC % /100WBC Nucleated RBCs # K/uL Lactate (0.20-2.00) mmol/L Sodium (136-145) mmol/L Potassium (3.5-5.1) mmol/L Chloride (98-107) mmol/L Carbon Dioxide (21.0-32.0) mmol/L BUN (7.0-18.0) mg/dL Creatinine (0.6-1.0) mg/dL Est Cr Clr Drug Dosing mL/min Estimated GFR (MDRD) ml/min Glucose (74-106) mg/dL Calcium (8.5-10.1) mg/dL Total Bilirubin (0.2-1.0) mg/dL AST (15-37) IU/L ALT (14-63) IU/L Alkaline Phosphatase (46-116) U/L Total Protein (6.4-8.2) g/dL Albumin (3.4-5.0) g/dL Globulin (2.6-4.0) g/dL Albumin/Globulin Ratio (0.9-1.6) HCG, Qual NEGATIVE (NEG) Urine Color YELLOW Urine Appearance CLEAR Urine pH 6.0 (5.0-8.0) Ur Specific [place] 1.020 (1.001-1.035) Urine Protein NEGATIVE (NEGATIVE) mg/dL Urine Glucose (UA) NEGATIVE (NEGATIVE) mg/dL Urine Ketones NEGATIVE (NEGATIVE) mg/dL Urine Occult Blood NEGATIVE (NEGATIVE) Urine Nitrite NEGATIVE (NEGATIVE) Urine Bilirubin NEGATIVE (NEGATIVE) Urine Urobilinogen 2.0 H (<2.0) EU/dL Ur Leukocyte Esterase NEGATIVE (NEGATIVE) Monoscreen NEGATIVE (NEG) Meds: Medications Discontinued Medications Generic Name Dose Route Start Last Admin Trade Name Freq PRN Reason Stop Dose Admin Sodium Chloride 1,000 mls @ 999 mls/hr 12/25/18 22:43 12/25/18 23:09 Normal Saline IV 12/25/18 23:43 999 mls/hr STAT ONE Administration Departure - Departure Time of Disposition: 00:26 Disposition: Home, Self-Care 01 Condition: Good Clinical Impression: Dehydration, Pharyngitis, Encounter for medical screening examination - Discharge Information Referrals: PCP,Unknown [Primary Care Provider] - Additional Instructions: The following information is given to patients seen in the emergency department who are being discharged to home. This information is to outline your options for follow-up care. We provide all patients seen in our emergency department with a follow-up referral. The need for follow-up, as well as the timing and circumstances, are variable depending upon the specifics of your emergency department visit. If you don't have a primary care physician on staff, we will provide you with a referral. We always advise you to contact your personal physician following an emergency department visit to inform them of the circumstance of the visit and for follow-up with them and/or the need for any referrals to a consulting specialist. The emergency department will also refer you to a specialist when appropriate. This referral assures that you have the opportunity for followup care with a specialist. All of these measure are taken in an effort to provide you with optimal care, which includes your followup. Under all circumstances we always encourage you to contact your private physician who remains a resource for coordinating your care. When calling for followup care, please make the office aware that this follow-up is from your recent emergency room visit. If for any reason you are refused follow-up, please contact the [facility] emergency department at and asked to speak to the emergency department charge nurse. [facility] [address] [place] [id number] Follow-up clinic push fluids Tylenol with codeine elixir as prescribed continue current medications and return as needed as discussed - My Orders Last 24 Hours: My Active Orders 12/25/18 00:00 CULTURE STREP A CONFIRMATION [RM] Stat STREP SCRN A RAPID W CULT CONF [RM] Stat 12/25/18 22:42 Blood Culture x2 Reflex Set [OM.PC] Stat 12/25/18 23:01 CULTURE BLOOD [BC] Stat 12/25/18 23:10 CULTURE BLOOD [BC] Stat - Assessment/Plan Last 24 Hours: My Active Orders 12/25/18 00:00 CULTURE STREP A CONFIRMATION [RM] Stat STREP SCRN A RAPID W CULT CONF [RM] Stat 12/25/18 22:42 Blood Culture x2 Reflex Set [OM.PC] Stat 12/25/18 23:01 CULTURE BLOOD [BC] Stat 12/25/18 23:10 CULTURE BLOOD [BC] Stat
== END 2018-12-26 00:35 | disposition home or self-care (01) ==
LOC: MW.ED 22:22
DX: E86.0 Dehydration (principal); J02.9 Acute pharyngitis, unspecified; Z88.1 Allergy status to other antibiotic agents; Z88.0 Allergy status to penicillin; Z91.041 Radiographic dye allergy status
CPT/HCPCS: 36415; 80053; 81003; 83605; 84703; 85025; 86308; 87040; 87081; 87880; 96360; 99283; J7040

== ENCOUNTER 2019-05-09 10:06 | Emergency (ER) | payer SELFPAY ==
[2019-05-09] MEDS ORDERED: Tetracaine HCl/PF 0.5% 4 ML Bottle EYERT ONE (11:19)
--- NOTE | 2019-05-09 11:24 | EDM.PDOC ---
ED HPI GENERAL MEDICAL PROBLEM - General Chief Complaint: Eye Problems Stated Complaint: EYE IRRITATION Time Seen by Provider: 05/09/19 10:12 Source of Information: Reports: Patient History Limitations: Reports: No Limitations - History of Present Illness INITIAL COMMENTS - FREE TEXT/NARRATIVE: This 23 year old female presents to the ED with a chief complaint of the sudden onset of floaters in her right eye with associated right eye pain. She states that her vision is her right eye is normal for her. She wears glasses. She denies any visual loss in the right eye. No headache, nausea or vomiting. I have ordered a visual acuity of the patient eyes. Onset: Sudden (today) Duration: Constant, Other (floaters are present but not getting any worse.) Severity: Mild r eYE Pain Score (Numeric/FACES): 8 - Related Data Allergies Allergy/AdvReac Type Severity Reaction Status Date / Time amoxicillin Allergy Swelling Verified 05/09/19 10:26 Penicillins Allergy Swelling Verified 05/09/19 10:26 red dye Allergy Hives Verified 05/09/19 10:26 Home Meds: Home Meds . [No Known Home Meds] 12/23/18 [History] Past Medical History - Past Health History Medical/Surgical History: Denies Medical/Surgical History HEENT History: Reports: Other (See Below) Other HEENT History: recurrent tonsilitis. 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: None Musculoskeletal History: Reports: None Neurological History: Reports: None Psychiatric History: Reports: Anxiety Endocrine/Metabolic History: Reports: None Hematologic History: Reports: None Immunologic History: Reports: None Oncologic (Cancer) History: Reports: None Dermatologic History: Reports: None - Infectious Disease History Infectious Disease History: Reports: None - Past Surgical History Head Surgeries/Procedures: Reports: None Social & Family History - Family History Family Medical History: Noncontributory - Tobacco Use Smoking Status *Q: Never Smoker Second Hand Smoke Exposure: No - Caffeine Use Caffeine Use: Reports: None - Recreational Drug Use Recreational Drug Use: No ED ROS GENERAL - Review of Systems Review Of Systems: See Below Constitutional: Reports: No Symptoms HEENT: Reports: Eye Pain (OD), Glasses, Vision Change (seeing floaters), Other ( No vision changes according to the patient) Respiratory: Reports: No Symptoms Cardiovascular: Reports: No Symptoms Endocrine: Reports: No Symptoms GI/Abdominal: Reports: No Symptoms : Reports: No Symptoms Musculoskeletal: Reports: No Symptoms Skin: Reports: No Symptoms Neurological: Reports: No Symptoms ED EXAM GENERAL W FULL EYE - Physical Exam Exam: See Below Text/Narrative:: After the use of Tetracaine opth erika in the OD, visual acuity was corrected vision, OS 20/30,OD 20/50 and OU 20/20. Exam Limited By: No Limitations General Appearance: Alert, WD/WN, No Apparent Distress Eye Exam: Right Eye: Vision Changes (slightly blurred), Bilateral Eye: EOMI, Normal Fundi, PERRL (3.5mm) Visual Acuity (R) 20/: 50 Visual Acuity (L) 20/: 30 With Correction: Yes Eyelids: Bilateral: Normal Appearance Conjunctiva & Sclera: Bilateral: Normal Appearance Cornea Exam: Bilateral: Normal Appearance Extraocular Movements: Bilateral: Intact Pupils: Normal Accommodation Pupillary Size: Bilateral: 4 mm Pupillary Reaction: Bilateral: Brisk Anterior Chamber: Bilateral: Normal Appearance (She was examined using ultrasound of the globe with a high freq probe) Posterior Chamber: Bilateral: Normal Funduscopic (Using the high freq probe ultrasound, the retina was intact. No sign of hemorrhage) Ears: Normal External Exam, Normal Canal, Hearing Grossly Normal, Normal TMs Nose: Normal Inspection, Normal Mucosa, No Blood Throat/Mouth: Normal Inspection, Normal Lips, Normal Teeth, Normal Gums, Normal Oropharynx, Normal Voice, No Airway Compromise Head: Atraumatic, Normocephalic Neck: Normal Inspection, Supple, Non-Tender, Full Range of Motion Respiratory/Chest: No Respiratory Distress, Lungs Clear, Normal Breath Sounds, No Accessory Muscle Use, Chest Non-Tender Cardiovascular: Normal Peripheral Pulses, Regular Rate, Rhythm, No Edema, No Gallop, No JVD, No Murmur, No Rub Neurological: Alert, Oriented, CN II-XII Intact, Normal Cognition, Normal Gait, Normal Reflexes, No Motor/Sensory Deficits ED EYE w/ Add Procedure - Additional/Other Procedure(s) Other (Free Text) Procedure(s) [Text1]: Using high freq probe Ultrasound of the OD globe, the lens is intact. No sign of retinal detachment. Course - Vital Signs Text/Narrative:: See ultrasound of right eye. Last Recorded V/S: Last Vital Signs Temp 97.8 F 05/09/19 10:26 Pulse 62 05/09/19 10:26 Resp 16 05/09/19 10:26 BP 129/51 L 05/09/19 10:26 Pulse Ox 97 05/09/19 10:26 Departure - Departure Time of Disposition: 11:58 Disposition: Home, Self-Care 01 Condition: Good Clinical Impression: Vitreous floaters of right eye - Discharge Information *PRESCRIPTION DRUG MONITORING PROGRAM REVIEWED*: Yes *COPY OF PRESCRIPTION DRUG MONITORING REPORT IN PATIENT MARIAH: Yes Instructions: Eye Floaters Referrals: PCP,None [Primary Care Provider] - Additional Instructions: Take your eye drops as directed. Follow up with the Opthmologist on Saturday. Return to the ED if your condition gets worse or should you have any questions or concerns. The following information is given to patients seen in the emergency department who are being discharged to home. This information is to outline your options for follow-up care. We provide all patients seen in our emergency department with a follow-up referral. The need for follow-up, as well as the timing and circumstances, are variable depending upon the specifics of your emergency department visit. If you don't have a primary care physician on staff, we will provide you with a referral. We always advise you to contact your personal physician following an emergency department visit to inform them of the circumstance of the visit and for follow-up with them and/or the need for any referrals to a consulting specialist. The emergency department will also refer you to a specialist when appropriate. This referral assures that you have the opportunity for follow-up care with a specialist. All of these measure are taken in an effort to provide you with optimal care, which includes your follow-up. Under all circumstances we always encourage you to contact your private physician who remains a resource for coordinating your care. When calling for follow-up care, please make the office aware that this follow-up is from your recent emergency room visit. If for any reason you are refused follow-up, please contact the [facility] Emergency Department at and asked to speak to the emergency department charge nurse. Sepsis Event Note - Evaluation Sepsis Screening Result: No Definite Risk - Focused Exam Vital Signs: Vital Signs Temp Pulse Resp BP Pulse Ox 05/09/19 10:26 97.8 F 62 16 129/51 L 97 Date Exam was Performed: 05/09/19 Time Exam was Performed: 11:07
[2019-05-09] MEDS ORDERED: Hydrocortisone/Neomycin/Polymyxin B Otic Susp 10 ML Bottle EARRT SCH (12:00)
== END 2019-05-09 12:13 | disposition home or self-care (01) ==
LOC: MW.ED 10:06
DX: H43.391 Other vitreous opacities, right eye (principal); J45.909 Unspecified asthma, uncomplicated; Z88.0 Allergy status to penicillin; Z88.1 Allergy status to other antibiotic agents; Z91.09 Other allergy status, other than to drugs and biological substances
CPT/HCPCS: 99283; A9270

== ENCOUNTER 2019-06-29 20:37 | Emergency (ER) | payer SELFPAY ==
[2019-06-29] MEDS ORDERED: Acetaminophen 325 MG Tab PO PRN (21:54)
[2019-06-29 21:55] LABS: BLOOD UREA NITROGEN,BUN 8 mg/dL (7.0-18.0); CARBON DIOXIDE,CO2 24.8 mmol/L (21.0-32.0); CHLORIDE,CL 103 mmol/L (98-107); GLUCOSE RANDOM 99 mg/dL (74-106); POTASSIUM,K 3.5 mmol/L (3.5-5.1); SODIUM,NA 139 mmol/L (136-145)
--- NOTE | 2019-06-29 21:56 | EDM.PDOC ---
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 Patient states she is approximately 9 weeks . Patient states the symptoms been ongoing for the past 1 week. Patient states that her bleeding was 2 days ago and she did not pass any clots. Patient reports bleeding in small amounts. Patient denies any urinary symptoms or vaginal discharge. Patient states that she has pain bilateral lower pelvic pain which is worse in the right side. Does not radiate. Patient has history of prior miscarriage. Pmhx: None Pshx: None Family Hx: noncontributory Smoking history? no Etoh use? none Drug use? none In addition to that documented in the HPI above, the additional ROS was obtained : Constitutional: Denies fevers or chills Eyes: Denies vision changes ENMT: Denies sore throat CV: Denies chest pain Resp: Denies SOB GI: Denies vomiting or diarrhea : Denies painful urination MSK: Denies recent trauma Skin: Denies new rashes Neuro: Denies new numbness or tingling or weakness Endocrine: Denies unexpected weight loss Heme: Denies bleeding disorders I have reviewed the triage vital signs Const: Well nourished, well developed, appears stated age Eyes: PERRL, no conjunctival injection HENT: NCAT, Neck supple without meningismus CV: RRR, Warm, well-perfused extremities RESP: CTAB, Unlabored respiratory effort GI: soft, non-tender, non-distended, no masses. Negative McBurney's point. No guarding or rebound. MSK: No gross deformities appreciated Skin: Warm, dry. No rashes Neuro: Alert, boiler riveter II-XII grossly intact. Sensation and motor function of extremities grossly intact. Psych: Appropriate mood and affect Assessment and plan: Patient is 23-year-old female presenting with lower pelvic pain. Patient's labs were reviewed and patient does not demonstrate any evidence of infection. Patient has low suspicion for appendicitis given the nature of history as well as elevated white blood cell count and no fever. Also under consideration is urinary tract infection the patient's urine is normal. I do not suspect kidney stone as the cause of the pain as she does not have any blood in her urine and pain is not characteristic of this. Also under consideration and seems more likely is threatened . There is no prior hCG that I can compare to. Ultrasound was not performed in the emergency department as this would not private branch exchange service adviser. Patient does have an outpatient follow-up with LIBRARY SALES CONSULTANT and I urged her to call tomorrow morning to set up a visit. Patient given strict return precautions. All questions addressed and answered. Patient agrees with plan. RLQ Pain Score (Numeric/FACES): 8 - Related Data Allergies Allergy/AdvReac Type Severity Reaction Status Date / Time amoxicillin Allergy Swelling Verified 06/29/19 20:43 Penicillins Allergy Swelling Verified 06/29/19 20:43 red dye Allergy Hives Verified 06/29/19 20:43 Home Meds: Home Meds . [No Known Home Meds] 12/23/18 [History] Past Medical History - Past Health History Medical/Surgical History: Denies Medical/Surgical History HEENT History: Reports: Other (See Below) Other HEENT History: recurrent tonsilitis. Cardiovascular History: Reports: None Respiratory History: Reports: Asthma Gastrointestinal History: Reports: None Genitourinary History: Reports: None LIBRARY SALES CONSULTANT History: Reports: None, Musculoskeletal History: Reports: None Neurological History: Reports: None Psychiatric History: Reports: Anxiety Endocrine/Metabolic History: Reports: None Hematologic History: Reports: None Immunologic History: Reports: None Oncologic (Cancer) History: Reports: None Dermatologic History: Reports: None - Infectious Disease History Infectious Disease History: Reports: None - Past Surgical History Head Surgeries/Procedures: Reports: None Social & Family History - Family History Family Medical History: Noncontributory - Tobacco Use Smoking Status *Q: Never Smoker - Caffeine Use Caffeine Use: Reports: None - Recreational Drug Use Recreational Drug Use: No ED ROS GENERAL - Review of Systems Review Of Systems: See Below ED EXAM, GI/ABD - Physical Exam Exam: See Below Course - Vital Signs Last Recorded V/S: Last Vital Signs Temp 36.7 C 06/29/19 20:44 Pulse 111 H 06/29/19 20:44 Resp 18 06/29/19 20:44 BP 127/91 H 06/29/19 20:44 Pulse Ox 99 06/29/19 20:44 - Orders/Labs/Meds Orders: Active Orders 24 hr Category Date Time Status Acetaminophen [Tylenol] Med 06/29/19 21:54 Active 650 mg PO BEDTIME PRN Medication Orders Acetaminophen (Tylenol) 650 mg PO BEDTIME PRN PRN Reason: Abdominal Pain Last Admin: 06/29/19 22:22 Dose: 650 mg Labs: Laboratory Tests 06/29/19 06/29/19 06/29/19 Range/Units 21:08 21:25 21:25 WBC 8.99 (4.0-11.0) K/uL RBC 4.35 (4.30-5.90) M/uL Hgb 12.7 (12.0-16.0) g/dL Hct 37.8 (36.0-46.0) % MCV 86.9 (80.0-98.0) fL MCH 29.2 (27.0-32.0) pg MCHC 33.6 (31.0-37.0) g/dL RDW Std Deviation 38.7 (28.0-62.0) fl RDW Coeff of Corey 12 (11.0-15.0) % Plt Count 278 (150-400) K/uL MPV 10.10 (7.40-12.00) fL Neut % (Auto) 75.1 (48.0-80.0) % Lymph % (Auto) 20.2 (16.0-40.0) % [place] % (Auto) 4.2 (0.0-15.0) % Eos % (Auto) 0.2 (0.0-7.0) % Baso % (Auto) 0.3 (0.0-1.5) % Neut # (Auto) 6.7 H (1.4-5.7) K/uL Lymph # (Auto) 1.8 (0.6-2.4) K/uL [place] # (Auto) 0.4 (0.0-0.8) K/uL Eos # (Auto) 0.0 (0.0-0.7) K/uL Baso # (Auto) 0.0 (0.0-0.1) K/uL Nucleated RBC % 0.0 /100WBC Nucleated RBCs # 0 K/uL Sodium 139 (136-145) mmol/L Potassium 3.5 (3.5-5.1) mmol/L Chloride 103 (98-107) mmol/L Carbon Dioxide 24.8 (21.0-32.0) mmol/L BUN 8 (7.0-18.0) mg/dL Creatinine 0.7 (0.6-1.0) mg/dL Est Cr Clr Drug Dosing 117.01 mL/min Estimated GFR (MDRD) > 60.0 ml/min Glucose 99 (74-106) mg/dL Calcium 9.3 (8.5-10.1) mg/dL Total Bilirubin 0.1 L (0.2-1.0) mg/dL AST 13 L (15-37) IU/L ALT 19 (14-63) IU/L Alkaline Phosphatase 50 (46-116) U/L Total Protein 7.5 (6.4-8.2) g/dL Albumin 3.7 (3.4-5.0) g/dL Globulin 3.8 (2.6-4.0) g/dL Albumin/Globulin Ratio 1.0 (0.9-1.6) HCG, Quant mIU/mL Urine Color YELLOW Urine Appearance CLEAR Urine pH 7.0 (5.0-8.0) Ur Specific [place] 1.020 (1.001-1.035) Urine Protein NEGATIVE (NEGATIVE) mg/dL Urine Glucose (UA) NEGATIVE (NEGATIVE) mg/dL Urine Ketones NEGATIVE (NEGATIVE) mg/dL Urine Occult Blood NEGATIVE (NEGATIVE) Urine Nitrite NEGATIVE (NEGATIVE) Urine Bilirubin NEGATIVE (NEGATIVE) Urine Urobilinogen 0.2 (<2.0) EU/dL Ur Leukocyte Esterase NEGATIVE (NEGATIVE) Blood Type Antibody Screen 06/29/19 06/29/19 Range/Units 21:25 21:25 WBC (4.0-11.0) K/uL RBC (4.30-5.90) M/uL Hgb (12.0-16.0) g/dL Hct (36.0-46.0) % MCV (80.0-98.0) fL MCH (27.0-32.0) pg MCHC (31.0-37.0) g/dL RDW Std Deviation (28.0-62.0) fl RDW Coeff of Corey (11.0-15.0) % Plt Count (150-400) K/uL MPV (7.40-12.00) fL Neut % (Auto) (48.0-80.0) % Lymph % (Auto) (16.0-40.0) % [place] % (Auto) (0.0-15.0) % Eos % (Auto) (0.0-7.0) % Baso % (Auto) (0.0-1.5) % Neut # (Auto) (1.4-5.7) K/uL Lymph # (Auto) (0.6-2.4) K/uL [place] # (Auto) (0.0-0.8) K/uL Eos # (Auto) (0.0-0.7) K/uL Baso # (Auto) (0.0-0.1) K/uL Nucleated RBC % /100WBC Nucleated RBCs # K/uL Sodium (136-145) mmol/L Potassium (3.5-5.1) mmol/L Chloride (98-107) mmol/L Carbon Dioxide (21.0-32.0) mmol/L BUN (7.0-18.0) mg/dL Creatinine (0.6-1.0) mg/dL Est Cr Clr Drug Dosing mL/min Estimated GFR (MDRD) ml/min Glucose (74-106) mg/dL Calcium (8.5-10.1) mg/dL Total Bilirubin (0.2-1.0) mg/dL AST (15-37) IU/L ALT (14-63) IU/L Alkaline Phosphatase (46-116) U/L Total Protein (6.4-8.2) g/dL Albumin (3.4-5.0) g/dL Globulin (2.6-4.0) g/dL Albumin/Globulin Ratio (0.9-1.6) HCG, Quant 205673.0 mIU/mL Urine Color Urine Appearance Urine pH (5.0-8.0) Ur Specific [place] (1.001-1.035) Urine Protein (NEGATIVE) mg/dL Urine Glucose (UA) (NEGATIVE) mg/dL Urine Ketones (NEGATIVE) mg/dL Urine Occult Blood (NEGATIVE) Urine Nitrite (NEGATIVE) Urine Bilirubin (NEGATIVE) Urine Urobilinogen (<2.0) EU/dL Ur Leukocyte Esterase (NEGATIVE) Blood Type A POSITIVE Antibody Screen NEGATIVE Meds: Medications Generic Name Dose Route Start Last Admin Trade Name Freq PRN Reason Stop Dose Admin Acetaminophen 650 mg 06/29/19 21:54 06/29/19 22:22 Tylenol PO 650 mg BEDTIME PRN Administration Abdominal Pain Departure - Departure Time of Disposition: 22:28 Disposition: Home, Self-Care 01 Clinical Impression: Pain in pelvis - Discharge Information Instructions: Pelvic Pain, Female, [id number] Referrals: PCP,None [Primary Care Provider] - Forms: ED Department Discharge Additional Instructions: The following information is given to patients seen in the emergency department who are being discharged to home. This information is to outline your options for follow-up care. We provide all patients seen in our emergency department with a follow-up referral. The need for follow-up, as well as the timing and circumstances, are variable depending upon the specifics of your emergency department visit. If you don't have a primary care physician on staff, we will provide you with a referral. We always advise you to contact your personal physician following an emergency department visit to inform them of the circumstance of the visit and for follow-up with them and/or the need for any referrals to a consulting specialist. The emergency department will also refer you to a specialist when appropriate. This referral assures that you have the opportunity for follow-up care with a specialist. All of these measure are taken in an effort to provide you with optimal care, which includes your follow-up. Under all circumstances we always encourage you to contact your private physician who remains a resource for coordinating your care. When calling for follow-up care, please make the office aware that this follow-up is from your recent emergency room visit. If for any reason you are refused follow-up, please contact the Emergency Department at and asked to speak to the emergency department charge nurse. Sepsis Event Note - Evaluation Sepsis Screening Result: No Definite Risk - Focused Exam Vital Signs: Vital Signs Temp Pulse Resp BP Pulse Ox 06/29/19 20:44 36.7 C 111 H 18 127/91 H 99 Date Exam was Performed: 06/29/19 Time Exam was Performed: 22:28 - My Orders Last 24 Hours: My Active Orders 06/29/19 21:54 Acetaminophen [Tylenol] 650 mg PO BEDTIME PRN - Assessment/Plan Last 24 Hours: My Active Orders 06/29/19 21:54 Acetaminophen [Tylenol] 650 mg PO BEDTIME PRN
== END 2019-06-29 22:37 | disposition home or self-care (01) ==
LOC: MW.ED 20:37
DX: O99.89 Other specified diseases and conditions complicating pregnancy, childbirth and the puerperium (principal); R10.2 Pelvic and perineal pain; Z88.1 Allergy status to other antibiotic agents; Z91.048 Other nonmedicinal substance allergy status; Z88.0 Allergy status to penicillin; Z3A.09 9 weeks gestation of pregnancy
CPT/HCPCS: 36415; 80053; 81003; 84702; 85025; 86850; 86900; 86901; 99284; A9270

== ENCOUNTER 2019-11-07 19:14 | Observation (INO) | payer OTHER ==
[2019-11-07 21:37] LABS: BLOOD UREA NITROGEN,BUN 7 mg/dL (7.0-18.0); CARBON DIOXIDE,CO2 27.7 mmol/L (21.0-32.0); CHLORIDE,CL 103 mmol/L (98-107); GLUCOSE RANDOM 80 mg/dL (74-106); POTASSIUM,K 3.7 mmol/L (3.5-5.1); SODIUM,NA 138 mmol/L (136-145)
[2019-11-07] MEDS ORDERED: hydrOXYzine Pamoate 25 MG Cap PO ONE (21:53)
[2019-11-07] MEDS ORDERED: Acetaminophen/oxyCODONE 325-10 MG Tab PO ONE (21:54)
--- NOTE | 2019-11-07 23:14 | PCM.LDHP ---
L&D History of Present Illness - General Date of Service: 11/07/19 Admit Problem/Dx: Patient Status Order with Admit Dx/Problem 11/07/19 19:42 Patient Status [ADT] Routine Admission Diagnosis/Problem Admission Diagnosis/Problem 11/07/19 23:08 24yo EDC 01/31/2020 27 5/7 weeks. Come in with complaints of upper right quad pain and contractions. Also states possible rupture of membranes this m orning at 0500. Source of Information: Patient History Limitations: Reports: No Limitations - History of Present Illness Timing/Duration: Reports: minutes: Location, : Reports: Abdomen Quality: Reports: Dull, Throbbing Severity: Severe Pain Score: 7 Improves with: Reports: None Worsens with: Reports: None Associated Symptoms: Reports: N - Related Data Allergies/Adverse Reactions: Allergies Allergy/AdvReac Type Severity Reaction Status Date / Time amoxicillin Allergy Swelling Verified 06/29/19 20:43 Penicillins Allergy Swelling Verified 10/26/19 16:10 red dye Allergy Hives Verified 06/29/19 20:43 Home Medications: Home Meds Pnv No.95/Ferrous Fum/Folic AC [ Vitamins Tablet] 1 tab PO DAILY 10/26/19 [History] Past Medical History - Past Health History Medical/Surgical History: Denies Medical/Surgical History HEENT History: Reports: Other (See Below) Other HEENT History: recurrent tonsilitis. 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: Reports: None, Musculoskeletal History: Reports: None Neurological History: Reports: None Psychiatric History: Reports: Anxiety Endocrine/Metabolic History: Reports: None Hematologic History: Reports: None Immunologic History: Reports: None Oncologic (Cancer) History: Reports: None Dermatologic History: Reports: None - Infectious Disease History Infectious Disease History: Reports: None - Past Surgical History Head Surgeries/Procedures: Reports: None Social & Family History - Family History Family Medical History: Noncontributory - Caffeine Use Caffeine Use: Reports: None H&P Review of Systems - Review of Systems: Review Of Systems: See Below General: Reports: No Symptoms HEENT: Reports: No Symptoms Pulmonary: Reports: No Symptoms Cardiovascular: Reports: No Symptoms Gastrointestinal: Reports: Abdominal Pain (upper right) Genitourinary: Reports: No Symptoms Musculoskeletal: Reports: No Symptoms Skin: Reports: No Symptoms Psychiatric: Reports: No Symptoms Neurological: Reports: No Symptoms Hematologic/Lymphatic: Reports: No Symptoms Immunologic: Reports: No Symptoms L&D Exam - Exam Exam: See Below - Vital Signs Weight: 70.307 kg - OB Specific Contraction Intensity: Moderate to Strong Movement: Active Heart Tones: Present Heart Rate (FHR) Variability: Moderate (6-25 bmp) Presentation: Vertex - Denise Score Denise Score Cervix Position: Midposition Denise Score Consistency: Firm Denise Score Effacement: 31-50% Denise Score Dilation: Closed Denise Score 's Station: -2 Denise Score Total: 3 - Exam General: Alert, Oriented, Cooperative, Moderate Distress HEENT: Hearing Intact Lungs: Clear to Auscultation, Normal Respiratory Effort Cardiovascular: Regular Rate, Regular Rhythm, Normal S1, Normal S2 GI/Abdominal Exam: Normal Bowel Sounds, Soft, No Distention, Tender (upper right abd) Rectal Exam: Deferred Genitourinary: Normal external exam, Normal bimanual exam. No: Cervical dilitation, Cervical fluid (Amnisure neg), Vaginal bleeding Back Exam: Normal Inspection, Full Range of Motion Extremities: Normal Inspection, Normal Range of Motion, Non-Tender, No Pedal Edema Skin: Warm, Dry, Intact Neurological: Cranial Nerves Intact, Normal Speech, Normal Tone, Sensation Intact Psychiatric: Alert, Normal Affect, Normal Mood - Patient Data Lab Results Last 24 hrs: Laboratory Results - last 24 hr 11/07/19 11/07/19 11/07/19 Range/Units 19:30 19:30 21:06 WBC 8.96 (4.0-11.0) K/uL RBC 3.55 L (4.30-5.90) M/uL Hgb 10.6 L (12.0-16.0) g/dL Hct 32.5 L (36.0-46.0) % MCV 91.5 (80.0-98.0) fL MCH 29.9 (27.0-32.0) pg MCHC 32.6 (31.0-37.0) g/dL RDW Std Deviation 39.3 (28.0-62.0) fl RDW Coeff of Corey 12 (11.0-15.0) % Plt Count 232 (150-400) K/uL MPV 9.70 (7.40-12.00) fL Neut % (Auto) 71.0 (48.0-80.0) % Lymph % (Auto) 20.6 (16.0-40.0) % Cole % (Auto) 7.8 (0.0-15.0) % Eos % (Auto) 0.4 (0.0-7.0) % Baso % (Auto) 0.2 (0.0-1.5) % Neut # (Auto) 6.4 H (1.4-5.7) K/uL Lymph # (Auto) 1.9 (0.6-2.4) K/uL Cole # (Auto) 0.7 (0.0-0.8) K/uL Eos # (Auto) 0.0 (0.0-0.7) K/uL Baso # (Auto) 0.0 (0.0-0.1) K/uL Sodium (136-145) mmol/L Potassium (3.5-5.1) mmol/L Chloride (98-107) mmol/L Carbon Dioxide (21.0-32.0) mmol/L BUN (7.0-18.0) mg/dL Creatinine (0.6-1.0) mg/dL Est Cr Clr Drug Dosing mL/min Estimated GFR (MDRD) ml/min Glucose (74-106) mg/dL Calcium (8.5-10.1) mg/dL Total Bilirubin (0.2-1.0) mg/dL AST (15-37) IU/L ALT (14-63) IU/L Alkaline Phosphatase (46-116) U/L Total Protein (6.4-8.2) g/dL Albumin (3.4-5.0) g/dL Globulin (2.6-4.0) g/dL Albumin/Globulin Ratio (0.9-1.6) Urine Color YELLOW Urine Appearance CLEAR Urine pH 6.0 (5.0-8.0) Ur Specific [place] <= 1.005 (1.001-1.035) Urine Protein NEGATIVE (NEGATIVE) mg/dL Urine Glucose (UA) NEGATIVE (NEGATIVE) mg/dL Urine Ketones NEGATIVE (NEGATIVE) mg/dL Urine Occult Blood NEGATIVE (NEGATIVE) Urine Nitrite NEGATIVE (NEGATIVE) Urine Bilirubin NEGATIVE (NEGATIVE) Urine Urobilinogen 0.2 (<2.0) EU/dL Ur Leukocyte Esterase NEGATIVE (NEGATIVE) Urine RBC 0-1 (0-2/HPF) Urine WBC 0-1 (0-5/HPF) Ur Epithelial Cells RARE (NONE-FEW) Urine Bacteria RARE (NEGATIVE) Membrane Rupture NEGATIVE 11/07/19 Range/Units 21:06 WBC (4.0-11.0) K/uL RBC (4.30-5.90) M/uL Hgb (12.0-16.0) g/dL Hct (36.0-46.0) % MCV (80.0-98.0) fL MCH (27.0-32.0) pg MCHC (31.0-37.0) g/dL RDW Std Deviation (28.0-62.0) fl RDW Coeff of Corey (11.0-15.0) % Plt Count (150-400) K/uL MPV (7.40-12.00) fL Neut % (Auto) (48.0-80.0) % Lymph % (Auto) (16.0-40.0) % Cole % (Auto) (0.0-15.0) % Eos % (Auto) (0.0-7.0) % Baso % (Auto) (0.0-1.5) % Neut # (Auto) (1.4-5.7) K/uL Lymph # (Auto) (0.6-2.4) K/uL Cole # (Auto) (0.0-0.8) K/uL Eos # (Auto) (0.0-0.7) K/uL Baso # (Auto) (0.0-0.1) K/uL Sodium 138 (136-145) mmol/L Potassium 3.7 (3.5-5.1) mmol/L Chloride 103 (98-107) mmol/L Carbon Dioxide 27.7 (21.0-32.0) mmol/L BUN 7 (7.0-18.0) mg/dL Creatinine 0.7 (0.6-1.0) mg/dL Est Cr Clr Drug Dosing 117.01 mL/min Estimated GFR (MDRD) > 60.0 ml/min Glucose 80 (74-106) mg/dL Calcium 8.4 L (8.5-10.1) mg/dL Total Bilirubin 0.1 L (0.2-1.0) mg/dL AST 20 (15-37) IU/L ALT 26 (14-63) IU/L Alkaline Phosphatase 78 (46-116) U/L Total Protein 6.8 (6.4-8.2) g/dL Albumin 2.8 L (3.4-5.0) g/dL Globulin 4.0 (2.6-4.0) g/dL Albumin/Globulin Ratio 0.7 L (0.9-1.6) Urine Color Urine Appearance Urine pH (5.0-8.0) Ur Specific [place] (1.001-1.035) Urine Protein (NEGATIVE) mg/dL Urine Glucose (UA) (NEGATIVE) mg/dL Urine Ketones (NEGATIVE) mg/dL Urine Occult Blood (NEGATIVE) Urine Nitrite (NEGATIVE) Urine Bilirubin (NEGATIVE) Urine Urobilinogen (<2.0) EU/dL Ur Leukocyte Esterase (NEGATIVE) Urine RBC (0-2/HPF) Urine WBC (0-5/HPF) Ur Epithelial Cells (NONE-FEW) Urine Bacteria (NEGATIVE) Membrane Rupture Result Diagrams: 11/07/19 21:06 11/07/19 21:06 - Problem List (1) Supervision of normal IUP (intrauterine ) in primigravida SNOMED Code(s): 90640794, 779506561, 748900690, 182762743 ICD Code: Z34.00 - ENCNTR FOR SUPRVSN OF NORMAL FIRST , UNSP TRIMESTER Status: Acute Priority: High Current Visit: Yes Qualifiers: Trimester: third trimester Qualified Code(s): Z34.03 - Encounter for supe rvision of normal first , third trimester (2) contractions SNOMED Code(s): 456588428 ICD Code: O47.9 - FALSE LABOR, UNSPECIFIED Status: Acute Priority: High Current Visit: Yes (3) Epigastric pain SNOMED Code(s): 34160760 ICD Code: R10.13 - EPIGASTRIC PAIN Status: Acute Priority: High Current Visit: No Problem List Initiated/Reviewed/Updated: Yes Orders Last 24hrs: Active Orders 24 hr Category Date Time Status Patient Status [ADT] Routine ADT 11/07/19 19:42 Active Non Stress Test [RC] PER UNIT ROUTINE Care 11/07/19 19:42 Active Up ad June [RC] ASDIRECTED Care 11/07/19 19:42 Active Vaginal Exam [RC] Click to Edit Care 11/07/19 19:42 Active Vital Signs [RC] PER UNIT ROUTINE Care 11/07/19 19:42 Active Resuscitation Status Routine Resus Stat 11/07/19 19:42 Ordered Assessment/Plan Comment:: A: 24yo EDC 01/31/2020 27 5/7 weeks. Come in with complaints of upper right quad pain and contractions. Also states possible rupture of membranes this morning at 0500. Labs noted for WBC 8.96, H&H 10.6/32.5, ALT/AST , UA WNL, Amnisure neg. P: LR bolus, pain medications for epigastric pain and to decrease contractions. Disc case with ER MD and was suggested to evaluate gallbladder. Will disc with Dr [place] on Saturday.
[2019-11-07] MEDS ORDERED: Lactated Ringers 1,000 ML IV ONE (23:15)
[2019-11-07] MEDS ORDERED: Nalbuphine 20 MG/1 ML Amp IVPUSH ONE (23:15)
[2019-11-07] MEDS ORDERED: Promethazine 25 MG/ML SDV IM ONE (23:16)
[2019-11-07] MEDS ORDERED: Nalbuphine 10 MG/1 ML Vial ONE (23:36)
[2019-11-08] MEDS ORDERED: Terbutaline 1 MG/ML SDV SUBCUT ONE (01:36)
--- NOTE | 2019-11-08 06:58 | US ---
INDICATION: Right upper quadrant pain TECHNIQUE: Ultrasound abdomen limited. Sonographic images of the right upper quadrant were obtained using adan-scale and color Doppler images. COMPARISON: None FINDINGS: Moderate degradation of image quality is present due to the patient`s inability to maintain a breath hold. Liver: The liver parenchyma is normal in echotexture. Gallbladder: No gallstones or sludge seen in the lumen. The gallbladder wall is normal in appearance. No pericholecystic fluid is present. A sonographic Gray sign was reported. Common bile duct: 4 mm. Pancreas: The visualized portions of the pancreatic head and body are normal in appearance. Right Kidney: 10.9 cm. No hydronephrosis or ureterectasis is seen. Vascular: Proximal abdominal aorta and IVC are not demonstrated. IMPRESSION: 1. The right upper quadrant is unremarkable in appearance. Dictated by Laith Busby MD @ 11/08/2019 6:57:02 AM Dictated by: Laith Busby MD @ 11/08/2019 06:57:15 (Electronically Signed)
--- NOTE | 2019-11-08 07:02 | US ---
INDICATION: Contractions fluid leakage. Assessment amniotic fluid and cervical length TECHNIQUE: Ultrasound OB pelvis transabdominal and endovaginal. Real-time adan-scale imaging of the fetus was performed. COMPARISON: None FINDINGS: Sonographic imaging demonstrates a single intrauterine gestation. Biometric measurements were not performed. heart rate: 138 bpm Orientation: Cephalic Placenta: Anterior Amniotic fluid: Subjectively normal with single deepest pocket (SDP) 5.4 cm. BENJY 16 cm. Cervix: 3 cm in length IMPRESSION: 1. The amniotic fluid is within normal limits. The cervix is closed and measures 3 cm in length. Dictated by Laith Busby MD @ 11/08/2019 7:00:31 AM Dictated by: aLith Busby MD @ 11/08/2019 07:00:58 (Electronically Signed)
[2019-11-08] MEDS ORDERED: NIFEdipine 30 MG Tab.ER PO ONE (07:15)
[2019-11-08] MEDS ORDERED: Sodium Chloride 0.9% 10 ML SDV IV PRN (08:34)
[2019-11-08] MEDS ORDERED: Calcium Gluconate 10% 1 GM/10 ML SDV IV PRN (08:34)
[2019-11-08] MEDS ORDERED: Sodium Chloride 0.9% 10 ML Syringe FLUSH PRN (08:34)
[2019-11-08] MEDS ORDERED: Magnesium Sulfate/Water 4 GM in Premix Bag 1 BAG IV ONE (08:34)
[2019-11-08] MEDS ORDERED: Sodium Chloride 0.9% 2.5 ML Syringe FLUSH PRN (08:34)
[2019-11-08] MEDS ORDERED: Magnesium Sulfate/Water 20 GM/500 ML BAG IV SCH (08:45)
[2019-11-08] MEDS ORDERED: Lactated Ringers 1,000 ML IV SCH (10:00)
--- NOTE | 2019-11-08 13:26 | PCM.PN ---
- General Info Date of Service: 11/08/19 Admission Dx/Problem (Free Text): Patient Status Order with Admit Dx/Problem 11/07/19 19:42 Patient Status [ADT] Routine Admission Diagnosis/Problem Admission Diagnosis/Problem 11/07/19 23:08 24yo EDC 01/31/2020 27 5/7 weeks. Come in with complaints of upper right quad pain and contractions. Also states possible rupture of membranes this morning at 0500. Pain Score: 7 - Review of Systems General: Reports: No Symptoms HEENT: Reports: No Symptoms Pulmonary: Reports: No Symptoms Cardiovascular: Reports: No Symptoms Gastrointestinal: Reports: Abdominal Pain (continued pain in upper right quad) Genitourinary: Reports: No Symptoms Musculoskeletal: Reports: No Symptoms Skin: Reports: No Symptoms Neurological: Reports: No Symptoms Psychiatric: Reports: No Symptoms - Patient Data Vitals - Most Recent: Last Vital Signs Temp Pulse Resp BP 105/62 11/08/19 07:37 Pulse Ox Weight - Most Recent: 74.162 kg Lab Results Last 24 Hours: Laboratory Results - last 24 hr 11/07/19 11/07/19 11/07/19 Range/Units 19:30 19:30 21:06 WBC 8.96 (4.0-11.0) K/uL RBC 3.55 L (4.30-5.90) M/uL Hgb 10.6 L (12.0-16.0) g/dL Hct 32.5 L (36.0-46.0) % MCV 91.5 (80.0-98.0) fL MCH 29.9 (27.0-32.0) pg MCHC 32.6 (31.0-37.0) g/dL RDW Std Deviation 39.3 (28.0-62.0) fl RDW Coeff of Corey 12 (11.0-15.0) % Plt Count 232 (150-400) K/uL MPV 9.70 (7.40-12.00) fL Neut % (Auto) 71.0 (48.0-80.0) % Lymph % (Auto) 20.6 (16.0-40.0) % [place] % (Auto) 7.8 (0.0-15.0) % Eos % (Auto) 0.4 (0.0-7.0) % Baso % (Auto) 0.2 (0.0-1.5) % Neut # (Auto) 6.4 H (1.4-5.7) K/uL Lymph # (Auto) 1.9 (0.6-2.4) K/uL [place] # (Auto) 0.7 (0.0-0.8) K/uL Eos # (Auto) 0.0 (0.0-0.7) K/uL Baso # (Auto) 0.0 (0.0-0.1) K/uL Sodium (136-145) mmol/L Potassium (3.5-5.1) mmol/L Chloride (98-107) mmol/L Carbon Dioxide (21.0-32.0) mmol/L BUN (7.0-18.0) mg/dL Creatinine (0.6-1.0) mg/dL Est Cr Clr Drug Dosing mL/min Estimated GFR (MDRD) ml/min Glucose (74-106) mg/dL Calcium (8.5-10.1) mg/dL Magnesium (1.8-2.4) mg/dL Total Bilirubin (0.2-1.0) mg/dL AST (15-37) IU/L ALT (14-63) IU/L Alkaline Phosphatase (46-116) U/L Total Protein (6.4-8.2) g/dL Albumin (3.4-5.0) g/dL Globulin (2.6-4.0) g/dL Albumin/Globulin Ratio (0.9-1.6) Urine Color YELLOW Urine Appearance CLEAR Urine pH 6.0 (5.0-8.0) Ur Specific [place] <= 1.005 (1.001-1.035) Urine Protein NEGATIVE (NEGATIVE) mg/dL Urine Glucose (UA) NEGATIVE (NEGATIVE) mg/dL Urine Ketones NEGATIVE (NEGATIVE) mg/dL Urine Occult Blood NEGATIVE (NEGATIVE) Urine Nitrite NEGATIVE (NEGATIVE) Urine Bilirubin NEGATIVE (NEGATIVE) Urine Urobilinogen 0.2 (<2.0) EU/dL Ur Leukocyte Esterase NEGATIVE (NEGATIVE) Urine RBC 0-1 (0-2/HPF) Urine WBC 0-1 (0-5/HPF) Ur Epithelial Cells RARE (NONE-FEW) Urine Bacteria RARE (NEGATIVE) Membrane Rupture NEGATIVE COVID-19 (ABENA) (NEGATIVE) 11/07/19 11/08/19 11/08/19 Range/Units 21:06 10:00 11:58 WBC (4.0-11.0) K/uL RBC (4.30-5.90) M/uL Hgb (12.0-16.0) g/dL Hct (36.0-46.0) % MCV (80.0-98.0) fL MCH (27.0-32.0) pg MCHC (31.0-37.0) g/dL RDW Std Deviation (28.0-62.0) fl RDW Coeff of Corey (11.0-15.0) % Plt Count (150-400) K/uL MPV (7.40-12.00) fL Neut % (Auto) (48.0-80.0) % Lymph % (Auto) (16.0-40.0) % [place] % (Auto) (0.0-15.0) % Eos % (Auto) (0.0-7.0) % Baso % (Auto) (0.0-1.5) % Neut # (Auto) (1.4-5.7) K/uL Lymph # (Auto) (0.6-2.4) K/uL [place] # (Auto) (0.0-0.8) K/uL Eos # (Auto) (0.0-0.7) K/uL Baso # (Auto) (0.0-0.1) K/uL Sodium 138 (136-145) mmol/L Potassium 3.7 (3.5-5.1) mmol/L Chloride 103 (98-107) mmol/L Carbon Dioxide 27.7 (21.0-32.0) mmol/L BUN 7 (7.0-18.0) mg/dL Creatinine 0.7 (0.6-1.0) mg/dL Est Cr Clr Drug Dosing 117.01 mL/min Estimated GFR (MDRD) > 60.0 ml/min Glucose 80 (74-106) mg/dL Calcium 8.4 L (8.5-10.1) mg/dL Magnesium 4.4 H (1.8-2.4) mg/dL Total Bilirubin 0.1 L (0.2-1.0) mg/dL AST 20 (15-37) IU/L ALT 26 (14-63) IU/L Alkaline Phosphatase 78 (46-116) U/L Total Protein 6.8 (6.4-8.2) g/dL Albumin 2.8 L (3.4-5.0) g/dL Globulin 4.0 (2.6-4.0) g/dL Albumin/Globulin Ratio 0.7 L (0.9-1.6) Urine Color Urine Appearance Urine pH (5.0-8.0) Ur Specific [place] (1.001-1.035) Urine Protein (NEGATIVE) mg/dL Urine Glucose (UA) (NEGATIVE) mg/dL Urine Ketones (NEGATIVE) mg/dL Urine Occult Blood (NEGATIVE) Urine Nitrite (NEGATIVE) Urine Bilirubin (NEGATIVE) Urine Urobilinogen (<2.0) EU/dL Ur Leukocyte Esterase (NEGATIVE) Urine RBC (0-2/HPF) Urine WBC (0-5/HPF) Ur Epithelial Cells (NONE-FEW) Urine Bacteria (NEGATIVE) Membrane Rupture COVID-19 (ABENA) NEGATIVE (NEGATIVE) Med Orders - Current: Current Medications Calcium Gluconate (Calcium Gluconate) 1 gm IV ASDIRECTED PRN PRN Reason: respiratory distress Magnesium Sulfate (Magnesium Sulfate In Water Premix) 20 gm in 500 mls @ 50 mls/hr IV ASDIRECTED [facility] Last Admin: 11/08/19 09:42 Dose: 2 gm/hr, 50 mls/hr Documented by: Lactated Ringer's (Ringers, Lactated) 1,000 mls @ 150 mls/hr IV ASDIRECTED [facility] Last Admin: 11/08/19 10:00 Dose: 150 mls/hr Documented by: Sodium Chloride (Saline Flush) 10 ml FLUSH ASDIRECTED PRN PRN Reason: Keep Vein Open Sodium Chloride (Saline Flush) 2.5 ml FLUSH ASDIRECTED PRN PRN Reason: Keep Vein Open Sodium Chloride (Normal Saline) 10 ml IV ASDIRECTED PRN PRN Reason: IV Use Discontinued Medications Hydroxyzine Pamoate (Vistaril) 50 mg PO ONETIME ONE Stop: 11/07/19 21:54 Last Admin: 11/07/19 22:14 Dose: 50 mg Documented by: Lactated Ringer's (Ringers, Lactated) 1,000 mls @ 999 mls/hr IV .BOLUS ONE Stop: 11/08/19 00:15 Last Admin: 11/07/19 23:35 Dose: 999 mls/hr Documented by: Magnesium Sulfate 4 gm/ Premix 100 mls @ 300 mls/hr IV BOLUS ONE Stop: 11/08/19 08:53 Last Admin: 11/08/19 09:25 Dose: 300 mls/hr Documented by: Nalbuphine HCl (Nubain) 10 mg IVPUSH ONETIME ONE Stop: 11/07/19 23:16 Last Admin: 11/07/19 23:40 Dose: 10 mg Documented by: Nalbuphine HCl (Nubain) Confirm Administered Dose 10 mg .ROUTE .STK-MED ONE Stop: 11/07/19 23:37 Last Admin: 11/07/19 23:46 Dose: Not Given Documented by: Nifedipine (Procardia Xl) 30 mg PO ONETIME ONE Stop: 11/08/19 07:16 Last Admin: 11/08/19 07:37 Dose: 30 mg Documented by: Oxycodone/Acetaminophen (Percocet 325-10 Mg) 1 tab PO ONETIME ONE Stop: 11/07/19 21:55 Last Admin: 11/07/19 22:16 Dose: 1 tab Documented by: Promethazine HCl (Phenergan) 25 mg IM ONETIME ONE Stop: 11/07/19 23:17 Last Admin: 11/07/19 23:40 Dose: 25 mg Documented by: Terbutaline Sulfate (Brethine) 0.25 mg SUBCUT ONETIME ONE Stop: 11/08/19 01:37 Last Admin: 11/08/19 01:50 Dose: 0.25 mg Documented by: - Exam General: Alert, Oriented, Cooperative, Moderate Distress Lungs: Clear to Auscultation, Normal Respiratory Effort. No: Decreased Breath Sounds Cardiovascular: Regular Rate, Regular Rhythm, No Murmurs GI/Abdominal Exam: Normal Bowel Sounds, Soft, Tender (upper right quad). No: Non-Tender (Female) Exam: Deferred. No: Cervical Fluid, Vaginal Bleeding Back Exam: Normal Inspection Extremities: Normal Inspection, Normal Range of Motion, Non-Tender, No Pedal Ed cali, Normal Capillary Refill Skin: Warm, Dry, Intact Neurological: No New Focal Deficit, Normal Speech, Normal Tone, Strength Equal Bilateral, Sensation Intact Psy/Mental Status: Alert, Normal Affect, Normal Mood Sepsis Event Note - Evaluation Sepsis Screening Result: No Definite Risk - Focused Exam Vital Signs: Vital Signs BP 11/08/19 07:37 105/62 Date Exam was Performed: 11/08/19 Time Exam was Performed: 13:17 - Problem List & Annotations (1) Supervision of normal IUP (intrauterine ) in primigravida SNOMED Code(s): 36411632, 506896776, 763612885, 981526905 Code(s): Z34.00 - ENCNTR FOR SUPRVSN OF NORMAL FIRST , UNSP TRIMESTER Status: Acute Priority: High Current Visit: Yes Qualifiers: Trimester: third trimester Qualified Code(s): Z34.03 - Encounter for supervision of normal first , third trimester (2) contractions SNOMED Code(s): 367688454 Code(s): O47.9 - FALSE LABOR, UNSPECIFIED Status: Acute Priority: High Current Visit: Yes (3) Epigastric pain SNOMED Code(s): 88806191 Code(s): R10.13 - EPIGASTRIC PAIN Status: Acute Priority: High Current Visit: No - Problem List Review Problem List Initiated/Reviewed/Updated: Yes - My Orders Last 24 Hours: My Active Orders 11/07/19 19:42 Up ad June [RC] ASDIRECTED Vital Signs [RC] PER UNIT ROUTINE Resuscitation Status Routine 11/08/19 OB Transvaginal [US] Routine - Plan Plan:: A: 24yo EDC 01/31/2020 27 5/7 weeks. Come in with complaints of upper right quad pain and contractions. Also states possible rupture of membranes this morning at 0500. Labs noted for WBC 8.96, H&H 10.6/32.5, ALT/AST , UA WNL, Amnisure neg. P: LR bolus, pain medications for epigastric pain and to decrease contractions. Disc case with ER MD and was suggested to evaluate gallbladder. Will disc with Dr [place] on Saturday.
[2019-11-08] MEDS ORDERED: Acetaminophen 500 MG Tab PO ONE (13:45)
--- NOTE | 2019-11-08 16:52 | PCM.DCSUM1 ---
Discharge Summary - Hospital Course Free Text/Narrative:: Discharge home. Rx for Procardia XL 30mg po QD and Percocet 5/325mg 1-2 po q6h prn #20. Advised to rest at home and start a low fat diet. Possible gallbladder issues. Advised to f/U on in the clinic and as needed. Diagnosis: Stroke: No Modified Burnett Scale: No Symptoms at All Modified Ryley Scale Score: 0 - Discharge Data Discharge Date: 11/08/19 Discharge Disposition: Home, Self-Care 01 Condition: Good - Referral to Home Health Primary Care Physician: PCP None - Discharge Diagnosis/Problem(s) (1) Supervision of normal IUP (intrauterine ) in primigravida SNOMED Code(s): 90053986, 973548623, 626490007, 702596686 ICD Code: Z34.00 - ENCNTR FOR SUPRVSN OF NORMAL FIRST , UNSP TRIMESTER Status: Acute Priority: High Current Visit: Yes Qualifiers: Trimester: third trimester Qualified Code(s): Z34.03 - Encounter for supervision of normal first , third trimester (2) contractions SNOMED Code(s): 700239155 ICD Code: O47.9 - FALSE LABOR, UNSPECIFIED Status: Acute Priority: High Current Visit: Yes (3) Epigastric pain SNOMED Code(s): 04729090 ICD Code: R10.13 - EPIGASTRIC PAIN Status: Acute Priority: High Current Visit: No - Patient Summary/Data Consults: Consultations 11/08/19 13:36 Consult to Physician [CONS] Urgent - Patient Instructions Activity: Apply Ice, As Tolerated, Rest and Relax Today Driving: May Drive Today Showering/Bathing: May Shower Notify Provider of: Fever, Increased Pain, Swelling and Redness, Drainage, Nausea and/or Vomiting Other/Special Instructions: Discharge home. Rx for Procardia XL 30mg po QD and Percocet 5/325mg 1-2 po q6h prn #20. Advised to rest at home and start a low fat diet. Possible gallbladder issues. Advised to f/U on in the clinic and as needed. - Discharge Plan *PRESCRIPTION DRUG MONITORING PROGRAM REVIEWED*: Not Applicable *COPY OF PRESCRIPTION DRUG MONITORING REPORT IN PATIENT MARIAH: Not Applicable Home Medications: Home Meds Pnv No.95/Ferrous Fum/Folic AC [ Vitamins Tablet] 1 tab PO DAILY 10/26/19 [History] Oxygen Therapy Mode: Room Air Patient Handouts: Gallbladder Eating Plan - Discharge Summary/Plan Comment DC Time >30 min.: No - General Info Date of Service: 11/08/19 Admission Dx/Problem (Free Text: Patient Status Order with Admit Dx/Problem 11/07/19 19:42 Patient Status [ADT] Routine Admission Diagnosis/Problem Admission Diagnosis/Problem 11/07/19 23:08 24yo EDC 01/31/2020 27 5/7 weeks. Come in with complaints of upper right quad pain and contractions. Also states possible rupture of membranes this morning at 0500. Functional Status: Reports: Pain Controlled, Tolerating Diet, Ambulating, Urinating - Review of Systems General: Reports: No Symptoms HEENT: Reports: No Symptoms Pulmonary: Reports: No Symptoms Cardiovascular: Reports: No Symptoms Gastrointestinal: Reports: Abdominal Pain (Pain down to 5/10 from 10/08.) Genitourinary: Reports: No Symptoms Musculoskeletal: Reports: No Symptoms Skin: Reports: No Symptoms Neurological: Reports: No Symptoms Psychiatric: Reports: No Symptoms - Patient Data Vitals - Most Recent: Last Vital Signs Temp Pulse Resp BP 105/62 11/08/19 07:37 Pulse Ox Weight - Most Recent: 74.162 kg Lab Results - Last 24 hrs: Laboratory Results - last 24 hr 11/07/19 11/07/19 11/07/19 Range/Units 19:30 19:30 21:06 WBC 8.96 (4.0-11.0) K/uL RBC 3.55 L (4.30-5.90) M/uL Hgb 10.6 L (12.0-16.0) g/dL Hct 32.5 L (36.0-46.0) % MCV 91.5 (80.0-98.0) fL MCH 29.9 (27.0-32.0) pg MCHC 32.6 (31.0-37.0) g/dL RDW Std Deviation 39.3 (28.0-62.0) fl RDW Coeff of Corey 12 (11.0-15.0) % Plt Count 232 (150-400) K/uL MPV 9.70 (7.40-12.00) fL Neut % (Auto) 71.0 (48.0-80.0) % Lymph % (Auto) 20.6 (16.0-40.0) % [place] % (Auto) 7.8 (0.0-15.0) % Eos % (Auto) 0.4 (0.0-7.0) % Baso % (Auto) 0.2 (0.0-1.5) % Neut # (Auto) 6.4 H (1.4-5.7) K/uL Lymph # (Auto) 1.9 (0.6-2.4) K/uL [place] # (Auto) 0.7 (0.0-0.8) K/uL Eos # (Auto) 0.0 (0.0-0.7) K/uL Baso # (Auto) 0.0 (0.0-0.1) K/uL Sodium (136-145) mmol/L Potassium (3.5-5.1) mmol/L Chloride (98-107) mmol/L Carbon Dioxide (21.0-32.0) mmol/L BUN (7.0-18.0) mg/dL Creatinine (0.6-1.0) mg/dL Est Cr Clr Drug Dosing mL/min Estimated GFR (MDRD) ml/min Glucose (74-106) mg/dL Calcium (8.5-10.1) mg/dL Magnesium (1.8-2.4) mg/dL Total Bilirubin (0.2-1.0) mg/dL AST (15-37) IU/L ALT (14-63) IU/L Alkaline Phosphatase (46-116) U/L Total Protein (6.4-8.2) g/dL Albumin (3.4-5.0) g/dL Globulin (2.6-4.0) g/dL Albumin/Globulin Ratio (0.9-1.6) Urine Color YELLOW Urine Appearance CLEAR Urine pH 6.0 (5.0-8.0) Ur Specific [place] <= 1.005 (1.001-1.035) Urine Protein NEGATIVE (NEGATIVE) mg/dL Urine Glucose (UA) NEGATIVE (NEGATIVE) mg/dL Urine Ketones NEGATIVE (NEGATIVE) mg/dL Urine Occult Blood NEGATIVE (NEGATIVE) Urine Nitrite NEGATIVE (NEGATIVE) Urine Bilirubin NEGATIVE (NEGATIVE) Urine Urobilinogen 0.2 (<2.0) EU/dL Ur Leukocyte Esterase NEGATIVE (NEGATIVE) Urine RBC 0-1 (0-2/HPF) Urine WBC 0-1 (0-5/HPF) Ur Epithelial Cells RARE (NONE-FEW) Urine Bacteria RARE (NEGATIVE) Membrane Rupture NEGATIVE COVID-19 (ABENA) (NEGATIVE) 11/07/19 11/08/19 11/08/19 Range/Units 21:06 10:00 11:58 WBC (4.0-11.0) K/uL RBC (4.30-5.90) M/uL Hgb (12.0-16.0) g/dL Hct (36.0-46.0) % MCV (80.0-98.0) fL MCH (27.0-32.0) pg MCHC (31.0-37.0) g/dL RDW Std Deviation (28.0-62.0) fl RDW Coeff of Corey (11.0-15.0) % Plt Count (150-400) K/uL MPV (7.40-12.00) fL Neut % (Auto) (48.0-80.0) % Lymph % (Auto) (16.0-40.0) % [place] % (Auto) (0.0-15.0) % Eos % (Auto) (0.0-7.0) % Baso % (Auto) (0.0-1.5) % Neut # (Auto) (1.4-5.7) K/uL Lymph # (Auto) (0.6-2.4) K/uL [place] # (Auto) (0.0-0.8) K/uL Eos # (Auto) (0.0-0.7) K/uL Baso # (Auto) (0.0-0.1) K/uL Sodium 138 (136-145) mmol/L Potassium 3.7 (3.5-5.1) mmol/L Chloride 103 (98-107) mmol/L Carbon Dioxide 27.7 (21.0-32.0) mmol/L BUN 7 (7.0-18.0) mg/dL Creatinine 0.7 (0.6-1.0) mg/dL Est Cr Clr Drug Dosing 117.01 mL/min Estimated GFR (MDRD) > 60.0 ml/min Glucose 80 (74-106) mg/dL Calcium 8.4 L (8.5-10.1) mg/dL Magnesium 4.4 H (1.8-2.4) mg/dL Total Bilirubin 0.1 L (0.2-1.0) mg/dL AST 20 (15-37) IU/L ALT 26 (14-63) IU/L Alkaline Phosphatase 78 (46-116) U/L Total Protein 6.8 (6.4-8.2) g/dL Albumin 2.8 L (3.4-5.0) g/dL Globulin 4.0 (2.6-4.0) g/dL Albumin/Globulin Ratio 0.7 L (0.9-1.6) Urine Color Urine Appearance Urine pH (5.0-8.0) Ur Specific [place] (1.001-1.035) Urine Protein (NEGATIVE) mg/dL Urine Glucose (UA) (NEGATIVE) mg/dL Urine Ketones (NEGATIVE) mg/dL Urine Occult Blood (NEGATIVE) Urine Nitrite (NEGATIVE) Urine Bilirubin (NEGATIVE) Urine Urobilinogen (<2.0) EU/dL Ur Leukocyte Esterase (NEGATIVE) Urine RBC (0-2/HPF) Urine WBC (0-5/HPF) Ur Epithelial Cells (NONE-FEW) Urine Bacteria (NEGATIVE) Membrane Rupture COVID-19 (ABENA) NEGATIVE (NEGATIVE) Med Orders - Current: Current Medications Calcium Gluconate (Calcium Gluconate) 1 gm IV ASDIRECTED PRN PRN Reason: respiratory distress Magnesium Sulfate (Magnesium Sulfate In Water Premix) 20 gm in 500 mls @ 50 mls/hr IV ASDIRECTED [facility] Last Admin: 11/08/19 09:42 Dose: 2 gm/hr, 50 mls/hr Documented by: Lactated Ringer's (Ringers, Lactated) 1,000 mls @ 150 mls/hr IV ASDIRECTED KIKI Last Admin: 11/08/19 10:00 Dose: 150 mls/hr Documented by: Sodium Chloride (Saline Flush) 10 ml FLUSH ASDIRECTED PRN PRN Reason: Keep Vein Open Sodium Chloride (Saline Flush) 2.5 ml FLUSH ASDIRECTED PRN PRN Reason: Keep Vein Open Sodium Chloride (Normal Saline) 10 ml IV ASDIRECTED PRN PRN Reason: IV Use Discontinued Medications Acetaminophen (Tylenol Extra Strength) 1,000 mg PO NOW ONE Stop: 11/08/19 13:46 Last Admin: 11/08/19 13:50 Dose: 1,000 mg Documented by: Hydroxyzine Pamoate (Vistaril) 50 mg PO ONETIME ONE Stop: 11/07/19 21:54 Last Admin: 11/07/19 22:14 Dose: 50 mg Documented by: Lactated Ringer's (Ringers, Lactated) 1,000 mls @ 999 mls/hr IV .BOLUS ONE Stop: 11/08/19 00:15 Last Admin: 11/07/19 23:35 Dose: 999 mls/hr Documented by: Magnesium Sulfate 4 gm/ Premix 100 mls @ 300 mls/hr IV BOLUS ONE Stop: 11/08/19 08:53 Last Admin: 11/08/19 09:25 Dose: 300 mls/hr Documented by: Nalbuphine HCl (Nubain) 10 mg IVPUSH ONETIME ONE Stop: 11/07/19 23:16 Last Admin: 11/07/19 23:40 Dose: 10 mg Documented by: Nalbuphine HCl (Nubain) Confirm Administered Dose 10 mg .ROUTE .STK-MED ONE Stop: 11/07/19 23:37 Last Admin: 11/07/19 23:46 Dose: Not Given Documented by: Nifedipine (Procardia Xl) 30 mg PO ONETIME ONE Stop: 11/08/19 07:16 Last Admin: 11/08/19 07:37 Dose: 30 mg Documented by: Oxycodone/Acetaminophen (Percocet 325-10 Mg) 1 tab PO ONETIME ONE Stop: 11/07/19 21:55 Last Admin: 11/07/19 22:16 Dose: 1 tab Documented by: Promethazine HCl (Phenergan) 25 mg IM ONETIME ONE Stop: 11/07/19 23:17 Last Admin: 11/07/19 23:40 Dose: 25 mg Documented by: Terbutaline Sulfate (Brethine) 0.25 mg SUBCUT ONETIME ONE Stop: 11/08/19 01:37 Last Admin: 11/08/19 01:50 Dose: 0.25 mg Documented by: - Exam General: Reports: Alert, Oriented, Cooperative, Mild Distress Lungs: Reports: Clear to Auscultation, Normal Respiratory Effort. Denies: Decreased Breath Sounds Cardiovascular: Reports: Regular Rate, Regular Rhythm, No Murmurs, Irregular Rhythm GI/Abdominal Exam: Normal Bowel Sounds, Soft, Tender (Female) Exam: Deferred. No: Cervical Fluid, Vaginal Bleeding Rectal (Female) Exam: Deferred Back Exam: Reports: Full Range of Motion Extremities: Normal Inspection, Normal Range of Motion, Non-Tender, No Pedal Edema Skin: Reports: Warm, Dry, Intact Neurological: Reports: No New Focal Deficit, Normal Gait, Normal Speech, Normal Tone, Strength Equal Bilateral, Sensation Intact Psy/Mental Status: Reports: Alert, Normal Affect, Normal Mood
--- NOTE | 2019-11-09 15:02 | CONS ---
DATE OF CONSULTATION: 11/08/2019 DATE OF : 1995 PRIMARY CARE PHYSICIAN: None PCP This is a consult from Rachel Stinson CNM, regarding abdominal pain. HISTORY OF PRESENT ILLNESS: The patient is a 24-year-old, appropriately built lady, in the hospital for some contractions. She is at 28 weeks gestation and G3, P0. In the hospital, she also complained of 1-week history of on and off right upper quadrant pain. Pain, patient remarked is at times to be on the pain scale 5, and it comes and goes, and there is no certain pattern. Very little association with food, and no radiation to the back and denied jaundice, dark urine, white stool, and denied bright red blood per rectum. PAST MEDICAL HISTORY: Significant for no diabetes, SC, CVA, hypertension. PAST SURGICAL HISTORY: No abdominal surgery. ALLERGIES AND MEDICATIONS: Please refer to nursing note for details. PHYSICAL EXAMINATION: Upon examination, a very pleasant lady, lying on her left side, and upon request, the patient gladly lying on her back. The patient does not have any abdominal pain per se in the bilateral lower quadrants; epigastrium, no pain; left upper quadrant, no pain. Right upper quadrant is a little bit sensitive, instead of pain, it is sensitive and no rebound. LABORATORY DATA: White count is 8.9. Liver function tests are within normal limit. Ultrasound of right upper quadrant, no sludge, no gallstones, no wall thickening, and no pericholecystic fluid. IMPRESSION: Imaging study and clinical history are difficult to iron out about the 1-week history of right upper quadrant pain. As the patient is having some contraction now, and the patient is in second trimester, she is not a surgical candidate for any elective procedure. Would recommend symptomatic treatment, and after , feel free to make appointment to see me 2 to 4 weeks after . We will continue workup on the right upper quadrant likely with the HIDA scan to look at the possible biliary dyskinesia, and of course, there is also some concern about possible appendicitis. In her situation, clinical suspicion is low with a normal white count of 8.9 on 20 weeks' gestation. All have been discussed with Rachel. Thank you for the kind referral. More than happy to see her as a consult 2 to 4 weeks after . AZRA / LIZA /[id number]
--- NOTE | 2019-11-09 15:35 | US ---
EXAM DATE: 11/08/19 PATIENT'S AGE: 24 INDICATION: Contractions fluid leakage. Assessment amniotic fluid and cervical length TECHNIQUE: Ultrasound OB pelvis transabdominal and endovaginal. Real-time adan-scale imaging of the fetus was performed. COMPARISON: None FINDINGS: Sonographic imaging demonstrates a single intrauterine gestation. Biometric measurements were not performed. heart rate: 138 bpm Orientation: Cephalic Placenta: Anterior Amniotic fluid: Subjectively normal with single deepest pocket (SDP) 5.4 cm. BENJY 16 cm. Cervix: 3 cm in length IMPRESSION: 1. The amniotic fluid is within normal limits. The cervix is closed and measures 3 cm in length. Dictated by Laith Busby MD @ 11/08/2019 7:00:31 AM Dictated by: Laith Busby MD @ 11/08/2019 07:00:58 (Electronically Signed) Dictated by: Laith Busby MD 11/08/19 at 07 00 Report Signed by Proxy. MTDD
== END 2019-11-08 17:10 | disposition home or self-care (01) ==
LOC: MW.OB 19:14 → MW.OBCHECK 19:14 → MW.OB 11-08 07:38 → MW.OBCHECK 11-08 07:38
PROVIDERS: ADMIT Obstetrics & Gynecology; ATTEND Obstetrics & Gynecology
DX: O47.9 False labor, unspecified (principal); O99.512 Diseases of the respiratory system complicating pregnancy, second trimester; J45.909 Unspecified asthma, uncomplicated; O99.342 Other mental disorders complicating pregnancy, second trimester; F41.9 Anxiety disorder, unspecified; O99.89 Other specified diseases and conditions complicating pregnancy, childbirth and the puerperium; R10.13 Epigastric pain; Z20.828 Contact with and (suspected) exposure to other viral communicable diseases; Z88.1 Allergy status to other antibiotic agents; Z88.0 Allergy status to penicillin; Z3A.28 28 weeks gestation of pregnancy
CPT/HCPCS: 36415; 76705; 76815; 76817; 80053; 81001; 83735; 84112; 85025; 87635; 96361; 96372; 96374; 96375; A9270; G0378; J2300; J2550; J3105; J3475; J7120; U0002

== ENCOUNTER 2019-12-22 15:03 | Observation (INO) | payer MEDICAID, OTHER ==
[2019-12-22] MEDS ORDERED: Sodium Chloride 0.9% 10 ML SDV IV PRN (15:06)
[2019-12-22] MEDS ORDERED: Sodium Chloride 0.9% 10 ML Syringe FLUSH PRN (15:06)
[2019-12-22] MEDS ORDERED: Sodium Chloride 0.9% 2.5 ML Syringe FLUSH PRN (15:06)
[2019-12-22] MEDS: Lactated Ringers 1,000 ML IV SCH ×2 (15:38→23:30)
--- NOTE | 2019-12-22 15:53 | US ---
Limited abdominal ultrasound: Multiple real-time images of the right abdomen were obtained. Liver contains no focal abnormality. Collecting system is slightly prominent on the right side compatible with hydronephrosis of . Pancreas not well seen. Gallbladder not optimally distended but shows no shadowing gallstones or gallbladder wall thickening. Left kidney appears without hydronephrosis. Impression: 1. Slightly dilated collecting system of the right kidney compatible with hydronephrosis of . 2. No additional abnormality is appreciated on right upper quadrant abdominal ultrasound. Diagnostic code #2 Study was dictated in MDT
[2019-12-22 16:00] LABS: BILIRUBIN INDIRECT 0.15001
[2019-12-22] MEDS: Morphine 10 MG/ML Syringe IVPUSH PRN (16:00)
[2019-12-22 16:56] LABS: LIPASE 100 U/L (73-393)
[2019-12-22] MEDS ORDERED: Ondansetron 4 MG/2 ML SDV IVPUSH PRN (17:07)
[2019-12-23] MEDS ORDERED: Acetaminophen 325 MG Tab PO ONE (06:20)
[2019-12-23] MEDS: Morphine 10 MG/ML Syringe IVPUSH PRN (06:36)
--- NOTE | 2019-12-23 09:32 | PCM.LDHP ---
L&D History of Present Illness - General Date of Service: 12/22/19 Admit Problem/Dx: Patient Status Order with Admit Dx/Problem 12/22/19 15:06 Patient Status [ADT] Routine Admission Diagnosis/Problem Admission Diagnosis/Problem Source of Information: Patient History Limitations: Reports: No Limitations - History of Present Illness Pain Score: 8 Improves with: Reports: None Worsens with: Reports: None Associated Symptoms: Reports: N - Related Data Allergies/Adverse Reactions: Allergies Allergy/AdvReac Type Severity Reaction Status Date / Time amoxicillin Allergy Swelling Verified 12/03/19 15:24 Penicillins Allergy Swelling Verified 12/03/19 15:24 red dye Allergy Hives Verified 12/03/19 15:24 Home Medications: Home Meds Pnv No.95/Ferrous Fum/Folic AC [ Vitamins Tablet] 1 tab PO DAILY 10/26/19 [History] Butalbital/Aspirin/Caffeine [Ngkvdz-Xgsuttx-Wdkgs 50-325-40] 1 each PO Q6H PRN 12/03/19 [History] Cyclobenzaprine HCl 5 mg PO TID PRN 12/03/19 [History] hydrOXYzine HCL [Atarax] 50 mg PO Q6H 12/22/19 [History] Past Medical History - Past Health History Medical/Surgical History: Denies Medical/Surgical History HEENT History: Reports: Other (See Below) Other HEENT History: recurrent tonsilitis. 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, Musculoskeletal History: Reports: None, Back Pain, Chronic Neurological History: Reports: Migraines Psychiatric History: Reports: Anxiety, Depression Endocrine/Metabolic History: Reports: None Hematologic History: Reports: None Immunologic History: Reports: None Oncologic (Cancer) History: Reports: None Dermatologic History: Reports: None - Infectious Disease History Infectious Disease History: Reports: Chicken Pox - Past Surgical History Head Surgeries/Procedures: Reports: None HEENT Surgical History: Reports: Other (See Below) Other HEENT Surgeries/Procedures: wisdom tooth Musculoskeletal Surgical History: Reports: Other (See Below) Other Musculoskeletal Surgeries/Procedures:: crushing injury to right hand and spinal cord stimulator inserted Social & Family History - Family History Family Medical History: Noncontributory HEENT: Reports: None Cardiac: Reports: Other (See Below) Other Cardiac Family History: heart problems Respiratory: Reports: None GI: Reports: None : Reports: None OBGYN: Reports: , Other (See Below) Other OBGYN Family History: history labors with deliveries <30 weeks Musculoskeletal: Reports: None Neurological: Reports: Alzheimers Disease Psychiatric: Reports: Anxiety Endocrine/Metabolic: Reports: Diabetes, type II Hematologic: Reports: None Immunologic: Reports: None Dermatologic: Reports: None Oncologic: Reports: Lung - Tobacco Use Smoking Status *Q: Never Smoker Second Hand Smoke Exposure: No - Caffeine Use Caffeine Use: Reports: None - Recreational Drug Use Recreational Drug Use: No H&P Review of Systems - Review of Systems: Review Of Systems: See Below General: Reports: No Symptoms HEENT: Reports: No Symptoms Pulmonary: Reports: No Symptoms Cardiovascular: Reports: No Symptoms Gastrointestinal: Reports: No Symptoms Genitourinary: Reports: No Symptoms Musculoskeletal: Reports: No Symptoms Skin: Reports: No Symptoms Psychiatric: Reports: No Symptoms Neurological: Reports: No Symptoms Hematologic/Lymphatic: Reports: No Symptoms Immunologic: Reports: No Symptoms L&D Exam - Exam Exam: See Below - Vital Signs Weight: 79.379 kg - OB Specific Contraction Intensity: Mild - Exam General: Alert, Oriented HEENT: PERRLA, Conjunctiva Clear, EACs Clear, EOMI, Hearing Intact, Mucosa Moist & [place], Nares Patent, Normal Nasal Septum, Posterior Pharynx Clear, TMs Clear Neck: Supple, Trachea Midline Lungs: Clear to Auscultation, Normal Respiratory Effort Cardiovascular: Regular Rate, Regular Rhythm GI/Abdominal Exam: Normal Bowel Sounds, Soft, Non-Tender, No Organomegaly, No Distention, No Abnormal Bruit, No Mass, Pelvis Stable Rectal Exam: Normal Exam, Normal Rectal Tone Genitourinary: Normal external exam, Normal bimanual exam, Normal speculum exam Back Exam: Normal Inspection, Full Range of Motion Extremities: Normal Inspection, Normal Range of Motion, Non-Tender, No Pedal Edema, Normal Capillary Refill Skin: Warm, Dry, Intact Neurological: Cranial Nerves Intact, Reflexes Equal Bilateral Psychiatric: Alert, Normal Affect, Normal Mood - Patient Data Lab Results Last 24 hrs: Laboratory Results - last 24 hr 12/22/19 12/22/19 12/22/19 Range/Units 15:23 15:23 15:23 WBC 7.64 (4.0-11.0) K/uL RBC 3.51 L (4.30-5.90) M/uL Hgb 10.0 L (12.0-16.0) g/dL Hct 31.0 L (36.0-46.0) % MCV 88.3 (80.0-98.0) fL MCH 28.5 (27.0-32.0) pg MCHC 32.3 (31.0-37.0) g/dL RDW Std Deviation 40.5 (28.0-62.0) fl RDW Coeff of Corey 13 (11.0-15.0) % Plt Count 212 (150-400) K/uL MPV 9.90 (7.40-12.00) fL Neut % (Auto) 71.6 (48.0-80.0) % Lymph % (Auto) 20.3 (16.0-40.0) % [place] % (Auto) 7.3 (0.0-15.0) % Eos % (Auto) 0.4 (0.0-7.0) % Baso % (Auto) 0.4 (0.0-1.5) % Neut # (Auto) 5.5 (1.4-5.7) K/uL Lymph # (Auto) 1.6 (0.6-2.4) K/uL [place] # (Auto) 0.6 (0.0-0.8) K/uL Eos # (Auto) 0.0 (0.0-0.7) K/uL Baso # (Auto) 0.0 (0.0-0.1) K/uL Nucleated RBC % 0.0 /100WBC Nucleated RBCs # 0 K/uL Total Bilirubin 0.2 (0.2-1.0) mg/dL Direct Bilirubin < 0.05 (0.0-0.5) mg/dL Indirect Bilirubin 0.09592 AST 28 (15-37) IU/L ALT 36 (14-63) IU/L Alkaline Phosphatase 101 (46-116) U/L Total Protein 6.4 (6.4-8.2) g/dL Albumin 2.6 L (3.4-5.0) g/dL Globulin 3.8 (2.6-4.0) g/dL Albumin/Globulin Ratio 0.7 L (0.9-1.6) Amylase 69 (25-115) U/L Lipase 100 (73-393) U/L SARS-CoV-2 RNA (ABENA) (NEGATIVE) 12/22/19 Range/Units 19:30 WBC (4.0-11.0) K/uL RBC (4.30-5.90) M/uL Hgb (12.0-16.0) g/dL Hct (36.0-46.0) % MCV (80.0-98.0) fL MCH (27.0-32.0) pg MCHC (31.0-37.0) g/dL RDW Std Deviation (28.0-62.0) fl RDW Coeff of Corey (11.0-15.0) % Plt Count (150-400) K/uL MPV (7.40-12.00) fL Neut % (Auto) (48.0-80.0) % Lymph % (Auto) (16.0-40.0) % [place] % (Auto) (0.0-15.0) % Eos % (Auto) (0.0-7.0) % Baso % (Auto) (0.0-1.5) % Neut # (Auto) (1.4-5.7) K/uL Lymph # (Auto) (0.6-2.4) K/uL [place] # (Auto) (0.0-0.8) K/uL Eos # (Auto) (0.0-0.7) K/uL Baso # (Auto) (0.0-0.1) K/uL Nucleated RBC % /100WBC Nucleated RBCs # K/uL Total Bilirubin (0.2-1.0) mg/dL Direct Bilirubin (0.0-0.5) mg/dL Indirect Bilirubin AST (15-37) IU/L ALT (14-63) IU/L Alkaline Phosphatase (46-116) U/L Total Protein (6.4-8.2) g/dL Albumin (3.4-5.0) g/dL Globulin (2.6-4.0) g/dL Albumin/Globulin Ratio (0.9-1.6) Amylase (25-115) U/L Lipase (73-393) U/L SARS-CoV-2 RNA (ABENA) NEGATIVE (NEGATIVE) Result Diagrams: 12/22/19 15:23 Problem List Initiated/Reviewed/Updated: Yes Orders Last 24hrs: Active Orders 24 hr Category Date Time Status Patient Status [ADT] Routine ADT 12/22/19 15:06 Active Non Stress Test [RC] PER UNIT ROUTINE Care 12/22/19 15:06 Active Up ad June [RC] ASDIRECTED Care 12/22/19 15:06 Active Vaginal Exam [RC] Click to Edit Care 12/22/19 15:06 Active Vital Signs [RC] PER UNIT ROUTINE Care 12/22/19 15:06 Active Regular Diet [DIET] Diet 12/23/19 Breakfast Active Lactated Ringers [Ringers, Lactated] 1,000 ml Med 12/22/19 15:15 Active IV ASDIRECTED Morphine Med 12/22/19 15:08 Active 8 - 10 mg IVPUSH Q4H PRN Ondansetron [Zofran] Med 12/22/19 17:07 Active 4 mg IVPUSH Q4H PRN Sodium Chloride 0.9% [Normal Saline] Med 12/22/19 15:06 Active 10 ml IV ASDIRECTED PRN Sodium Chloride 0.9% [Saline Flush] Med 12/22/19 15:06 Active 10 ml FLUSH ASDIRECTED PRN Sodium Chloride 0.9% [Saline Flush] Med 12/22/19 15:06 Active 2.5 ml FLUSH ASDIRECTED PRN Isolation [COMM] Routine Oth 12/22/19 17:03 Active Peripheral IV Insertion Adult [OM.PC] Urgent Oth 12/22/19 15:06 Ordered Resuscitation Status Routine Resus Stat 12/22/19 15:06 Ordered Medication Orders Lactated Ringer's (Ringers, Lactated) 1,000 mls @ 150 mls/hr IV ASDIRECTED KIKI Last Admin: 12/22/19 23:30 Dose: 150 mls/hr Documented by: Infusion: 12/22/19 22:19 Dose: 150 mls/hr Documented by: Admin: 12/22/19 15:38 Dose: 150 mls/hr Documented by: JOANNA Morphine Sulfate (Morphine) 8 - 10 mg IVPUSH Q4H PRN PRN Reason: Abdominal Pain Last Admin: 12/23/19 06:36 Dose: 10 mg Documented by: Admin: 12/22/19 16:00 Dose: 8 mg Documented by: JOANNA Ondansetron HCl (Zofran) 4 mg IVPUSH Q4H PRN PRN Reason: Nausea Sodium Chloride (Saline Flush) 2.5 ml FLUSH ASDIRECTED PRN PRN Reason: Keep Vein Open Sodium Chloride (Normal Saline) 10 ml IV ASDIRECTED PRN PRN Reason: IV Use Sodium Chloride (Saline Flush) 10 ml FLUSH ASDIRECTED PRN PRN Reason: Keep Vein Open Assessment/Plan Comment:: This patient is 34 weeks she had the right upper quadrant pain according to the patient is intense and she was unable to sleep last night today on examination there is minimum tenderness and guarding in the right upper quadrant the patient previously had a gallbladder ultrasound and was negative the because of the pain and the patient is uncomfortable I am roc admit her to the hospital for 23 hour observation to do lab and repeat her ultrasound and evaluate and treat accordingly
--- NOTE | 2019-12-23 09:34 | PCM.PN ---
- General Info Date of Service: 12/23/19 Functional Status: Reports: Pain Controlled - Review of Systems General: Reports: No Symptoms HEENT: Reports: No Symptoms Pulmonary: Reports: No Symptoms Cardiovascular: Reports: No Symptoms Gastrointestinal: Reports: No Symptoms Genitourinary: Reports: No Symptoms Musculoskeletal: Reports: No Symptoms Skin: Reports: No Symptoms Neurological: Reports: No Symptoms Psychiatric: Reports: No Symptoms - Patient Data Weight - Most Recent: 79.379 kg Lab Results Last 24 Hours: Laboratory Results - last 24 hr 12/22/19 12/22/19 12/22/19 Range/Units 15:23 15:23 15:23 WBC 7.64 (4.0-11.0) K/uL RBC 3.51 L (4.30-5.90) M/uL Hgb 10.0 L (12.0-16.0) g/dL Hct 31.0 L (36.0-46.0) % MCV 88.3 (80.0-98.0) fL MCH 28.5 (27.0-32.0) pg MCHC 32.3 (31.0-37.0) g/dL RDW Std Deviation 40.5 (28.0-62.0) fl RDW Coeff of Corey 13 (11.0-15.0) % Plt Count 212 (150-400) K/uL MPV 9.90 (7.40-12.00) fL Neut % (Auto) 71.6 (48.0-80.0) % Lymph % (Auto) 20.3 (16.0-40.0) % [place] % (Auto) 7.3 (0.0-15.0) % Eos % (Auto) 0.4 (0.0-7.0) % Baso % (Auto) 0.4 (0.0-1.5) % Neut # (Auto) 5.5 (1.4-5.7) K/uL Lymph # (Auto) 1.6 (0.6-2.4) K/uL [place] # (Auto) 0.6 (0.0-0.8) K/uL Eos # (Auto) 0.0 (0.0-0.7) K/uL Baso # (Auto) 0.0 (0.0-0.1) K/uL Nucleated RBC % 0.0 /100WBC Nucleated RBCs # 0 K/uL Total Bilirubin 0.2 (0.2-1.0) mg/dL Direct Bilirubin < 0.05 (0.0-0.5) mg/dL Indirect Bilirubin 0.22301 AST 28 (15-37) IU/L ALT 36 (14-63) IU/L Alkaline Phosphatase 101 (46-116) U/L Total Protein 6.4 (6.4-8.2) g/dL Albumin 2.6 L (3.4-5.0) g/dL Globulin 3.8 (2.6-4.0) g/dL Albumin/Globulin Ratio 0.7 L (0.9-1.6) Amylase 69 (25-115) U/L Lipase 100 (73-393) U/L SARS-CoV-2 RNA (ABENA) (NEGATIVE) 12/22/19 Range/Units 19:30 WBC (4.0-11.0) K/uL RBC (4.30-5.90) M/uL Hgb (12.0-16.0) g/dL Hct (36.0-46.0) % MCV (80.0-98.0) fL MCH (27.0-32.0) pg MCHC (31.0-37.0) g/dL RDW Std Deviation (28.0-62.0) fl RDW Coeff of Corey (11.0-15.0) % Plt Count (150-400) K/uL MPV (7.40-12.00) fL Neut % (Auto) (48.0-80.0) % Lymph % (Auto) (16.0-40.0) % [place] % (Auto) (0.0-15.0) % Eos % (Auto) (0.0-7.0) % Baso % (Auto) (0.0-1.5) % Neut # (Auto) (1.4-5.7) K/uL Lymph # (Auto) (0.6-2.4) K/uL [place] # (Auto) (0.0-0.8) K/uL Eos # (Auto) (0.0-0.7) K/uL Baso # (Auto) (0.0-0.1) K/uL Nucleated RBC % /100WBC Nucleated RBCs # K/uL Total Bilirubin (0.2-1.0) mg/dL Direct Bilirubin (0.0-0.5) mg/dL Indirect Bilirubin AST (15-37) IU/L ALT (14-63) IU/L Alkaline Phosphatase (46-116) U/L Total Protein (6.4-8.2) g/dL Albumin (3.4-5.0) g/dL Globulin (2.6-4.0) g/dL Albumin/Globulin Ratio (0.9-1.6) Amylase (25-115) U/L Lipase (73-393) U/L SARS-CoV-2 RNA (ABENA) NEGATIVE (NEGATIVE) Med Orders - Current: Current Medications Lactated Ringer's (Ringers, Lactated) 1,000 mls @ 150 mls/hr IV ASDIRECTED KIKI Last Admin: 12/22/19 23:30 Dose: 150 mls/hr Documented by: Morphine Sulfate (Morphine) 8 - 10 mg IVPUSH Q4H PRN PRN Reason: Abdominal Pain Last Admin: 12/23/19 06:36 Dose: 10 mg Documented by: Ondansetron HCl (Zofran) 4 mg IVPUSH Q4H PRN PRN Reason: Nausea Sodium Chloride (Saline Flush) 2.5 ml FLUSH ASDIRECTED PRN PRN Reason: Keep Vein Open Sodium Chloride (Normal Saline) 10 ml IV ASDIRECTED PRN PRN Reason: IV Use Sodium Chloride (Saline Flush) 10 ml FLUSH ASDIRECTED PRN PRN Reason: Keep Vein Open Discontinued Medications Acetaminophen (Tylenol) 975 mg PO ONETIME ONE Stop: 12/23/19 06:21 - Exam General: Alert, Oriented HEENT: Pupils Equal, Pupils Reactive, EOMI, Mucous Membr. Moist/[place] Neck: Supple Lungs: Clear to Auscultation, Normal Respiratory Effort Cardiovascular: Regular Rate, Regular Rhythm GI/Abdominal Exam: Normal Bowel Sounds, Soft, Non-Tender, No Organomegaly, No Distention, No Abnormal Bruit, No Mass, Pelvis Stable (Female) Exam: Normal External Exam, Normal Speculum Exam, Normal Bimanual Exam Back Exam: Normal Inspection, Full Range of Motion Extremities: Normal Inspection, Normal Range of Motion, Non-Tender, No Pedal Edema, Normal Capillary Refill Skin: Warm, Dry, Intact Wound/Incisions: Healing Well Neurological: No New Focal Deficit Psy/Mental Status: Alert, Normal Affect, Normal Mood Sepsis Event Note - Evaluation Sepsis Screening Result: No Definite Risk - Problem List Review Problem List Initiated/Reviewed/Updated: Yes - My Orders Last 24 Hours: My Active Orders 12/22/19 15:06 Patient Status [ADT] Routine Non Stress Test [RC] PER UNIT ROUTINE Up ad June [RC] ASDIRECTED Vaginal Exam [RC] Click to Edit Vital Signs [RC] PER UNIT ROUTINE Sodium Chloride 0.9% [Normal Saline] 10 ml IV ASDIRECTED PRN Sodium Chloride 0.9% [Saline Flush] 10 ml FLUSH ASDIRECTED PRN Sodium Chloride 0.9% [Saline Flush] 2.5 ml FLUSH ASDIRECTED PRN Peripheral IV Insertion Adult [OM.PC] Urgent Resuscitation Status Routine 12/22/19 15:08 Morphine 8 - 10 mg IVPUSH Q4H PRN 12/22/19 15:15 Lactated Ringers [Ringers, Lactated] 1,000 ml IV ASDIRECTED 12/22/19 17:03 Isolation [COMM] Routine 12/22/19 17:07 Ondansetron [Zofran] 4 mg IVPUSH Q4H PRN 12/23/19 Breakfast Regular Diet [DIET] - Assessment Assessment:: Patient is afebrile and her symptom and improved tremendously she got relief of the pain on a morphine however this morning had NST is negative she is comfortable there is no tenderness no rebound tenderness I reviewed her ultrasound and had lab work in which is essentially is normal and discussed this with the patient the patient expressed her desire to go home. I am discharging her home today with instruction and she is to keep her OB appointment - Plan Plan:: This patient is 34 weeks she had the right upper quadrant pain according to the patient is intense and she was unable to sleep last night today on examination there is minimum tenderness and guarding in the right upper quadrant the patient previously had a gallbladder ultrasound and was negative the because of the pain and the patient is uncomfortable I am roc admit her to the hospital for 23 hour observation to do lab and repeat her ultrasound and evaluate and treat accordingly
== END 2019-12-23 12:00 | disposition home or self-care (01) ==
LOC: MW.OBCHECK 15:03 → MW.OB 15:03 → MW.OBCHECK 15:06 → MW.OB 15:06
PROVIDERS: ADMIT Obstetrics & Gynecology; ATTEND Obstetrics & Gynecology
DX: O99.89 Other specified diseases and conditions complicating pregnancy, childbirth and the puerperium (principal); R10.11 Right upper quadrant pain; O99.513 Diseases of the respiratory system complicating pregnancy, third trimester; O99.343 Other mental disorders complicating pregnancy, third trimester; F32.9 Major depressive disorder, single episode, unspecified; F41.9 Anxiety disorder, unspecified; Z3A.34 34 weeks gestation of pregnancy; Z20.828 Contact with and (suspected) exposure to other viral communicable diseases
CPT/HCPCS: 36415; 76705; 80076; 82150; 83690; 85025; 87635; 96361; 96374; 96376; G0378; J2270; J7120; U0002

== ENCOUNTER 2020-01-12 09:33 | Inpatient (IN) | payer MEDICAID ==
[2020-01-12] MEDS ORDERED: Sodium Chloride 0.9% 10 ML SDV IV PRN (09:43)
[2020-01-12] MEDS ORDERED: Nalbuphine 10 MG/1 ML Vial IVPUSH PRN (09:43)
[2020-01-12] MEDS ORDERED: Misoprostol 25 MCG (1/4 of 100 MCG) Tab VAG PRN ×2 (09:43)
[2020-01-12] MEDS ORDERED: Carboprost Tromethamine 250 MCG/1 ML Amp IM PRN (09:43)
[2020-01-12] MEDS ORDERED: Tranexamic Acid 1,000 MG in Sodium Chloride 0.9% 100 ML IV PRN (09:43)
[2020-01-12] MEDS ORDERED: Misoprostol 200 MCG Tab PO PRN (09:43)
[2020-01-12] MEDS ORDERED: Methylergonovine 0.2 MG/1 ML Amp IM PRN (09:43)
[2020-01-12] MEDS ORDERED: Sodium Chloride 0.9% 2.5 ML Syringe FLUSH PRN (09:43)
[2020-01-12] MEDS ORDERED: Sodium Chloride 0.9% 10 ML Syringe FLUSH PRN (09:43)
[2020-01-12] MEDS ORDERED: Acetaminophen 325 MG Tab PO PRN (09:43)
[2020-01-12] MEDS ORDERED: Terbutaline 1 MG/ML SDV SUBCUT PRN (09:43)
[2020-01-12] MEDS ORDERED: Water For Irrigation,Sterile 1,000 ML Container IRR PRN (09:43)
[2020-01-12] MEDS ORDERED: Lidocaine 1% 50 ML MDV INJECT PRN (09:43)
[2020-01-12] MEDS ORDERED: Ondansetron 4 MG/2 ML SDV IVPUSH PRN (09:43)
[2020-01-12] MEDS ORDERED: Oxytocin/0.9 % Sodium Chloride 30 UNIT/500 ML BAG IV SCH ×2 (09:45)
--- NOTE | 2020-01-12 10:44 | PCM.LDHP ---
L&D History of Present Illness - General Date of Service: 01/12/20 Admit Problem/Dx: Patient Status Order with Admit Dx/Problem 01/12/20 09:44 Patient Status [ADT] Routine Admission Diagnosis/Problem Admission Diagnosis/Problem 01/12/20 10:38 24yo EDC 01/31/2020 37 2/7wks A+, [place], GBS neg. Admitting to L&D due to elevated BP. IOL. Source of Information: Patient History Limitations: Reports: No Limitations - History of Present Illness Improves with: Reports: None Worsens with: Reports: None Associated Symptoms: Reports: N - Related Data Allergies/Adverse Reactions: Allergies Allergy/AdvReac Type Severity Reaction Status Date / Time amoxicillin Allergy Swelling Verified 12/03/19 15:24 Penicillins Allergy Swelling Verified 12/03/19 15:24 red dye Allergy Hives Verified 12/03/19 15:24 Home Medications: Home Meds Pnv No.95/Ferrous Fum/Folic AC [ Vitamins Tablet] 1 tab PO DAILY 10/26/19 [History] Butalbital/Aspirin/Caffeine [Ppbbjw-Lmvfimc-Lbaeo 50-325-40] 1 each PO Q6H PRN 12/03/19 [History] Cyclobenzaprine HCl 5 mg PO TID PRN 12/03/19 [History] hydrOXYzine HCL [Atarax] 50 mg PO Q6H 12/22/19 [History] Past Medical History - Past Health History Medical/Surgical History: Denies Medical/Surgical History HEENT History: Reports: Other (See Below) Other HEENT History: recurrent tonsilitis. Cardiovascular History: Reports: None Respiratory History: Reports: Asthma Other Respiratory History: No treatment Gastrointestinal History: Reports: None Genitourinary History: Reports: None TIRE MOLDER History: Reports: None, Musculoskeletal History: Reports: None, Back Pain, Chronic Neurological History: Reports: Migraines Psychiatric History: Reports: Anxiety, Depression Endocrine/Metabolic History: Reports: None Hematologic History: Reports: None Immunologic History: Reports: None Oncologic (Cancer) History: Reports: None Dermatologic History: Reports: None - Infectious Disease History Infectious Disease History: Reports: Chicken Pox - Past Surgical History Head Surgeries/Procedures: Reports: None HEENT Surgical History: Reports: Other (See Below) Other HEENT Surgeries/Procedures: wisdom tooth Musculoskeletal Surgical History: Reports: Other (See Below) Other Musculoskeletal Surgeries/Procedures:: crushing injury to right hand and spinal cord stimulator inserted Social & Family History - Family History Family Medical History: Noncontributory HEENT: Reports: None Cardiac: Reports: Other (See Below) Other Cardiac Family History: heart problems Respiratory: Reports: None GI: Reports: None : Reports: None OBGYN: Reports: , Other (See Below) Other OBGYN Family History: history labors with deliveries <30 weeks Musculoskeletal: Reports: None Neurological: Reports: Alzheimers Disease Psychiatric: Reports: Anxiety Endocrine/Metabolic: Reports: Diabetes, type II Hematologic: Reports: None Immunologic: Reports: None Dermatologic: Reports: None Oncologic: Reports: Lung - Caffeine Use Caffeine Use: Reports: None H&P Review of Systems - Review of Systems: Review Of Systems: See Below General: Reports: No Symptoms HEENT: Reports: No Symptoms Pulmonary: Reports: No Symptoms Cardiovascular: Reports: No Symptoms Gastrointestinal: Reports: No Symptoms Genitourinary: Reports: No Symptoms Musculoskeletal: Reports: No Symptoms Skin: Reports: No Symptoms Psychiatric: Reports: No Symptoms Neurological: Reports: No Symptoms Hematologic/Lymphatic: Reports: No Symptoms Immunologic: Reports: No Symptoms L&D Exam - Exam Exam: See Below - Vital Signs Weight: 77.111 kg - OB Specific Contraction Intensity: Mild Movement: Active Heart Tones: Present Heart Rate (FHR) Variability: Moderate (6-25 bmp) Presentation: Vertex (confirmed via limited TAUS) - Exam General: Alert, Oriented, Cooperative Lungs: Clear to Auscultation, Normal Respiratory Effort. No: Decreased Breath Sounds Cardiovascular: Regular Rate, Regular Rhythm, Normal S1, Normal S2 GI/Abdominal Exam: Soft, Non-Tender Rectal Exam: Deferred Genitourinary: Deferred. No: Cervical fluid, Vaginal bleeding Back Exam: Full Range of Motion Extremities: Normal Inspection, Non-Tender, No Pedal Edema Skin: Warm, Dry, Intact Neurological: Cranial Nerves Intact, Strength Equal Bilateral, Normal Gait, Normal Speech, Normal Tone, Sensation Intact Psychiatric: Alert, Normal Affect, Normal Mood - Problem List (1) Supervision of normal IUP (intrauterine ) in primigravida SNOMED Code(s): 60210631, 996679932, 341941278, 533611807 ICD Code: Z34.00 - ENCNTR FOR SUPRVSN OF NORMAL FIRST , UNSP TRIMESTER Status: Acute Priority: High Current Visit: Yes Qualifiers: Trimester: third trimester Qualified Code(s): Z34.03 - Encounter for supervision of normal first , third trimester (2) Elevated blood pressure affecting in third trimester, antepartum SNOMED Code(s): 23588684, 87978999, 581284656 ICD Code: O16.3 - UNSPECIFIED MATERNAL HYPERTENSION, THIRD TRIMESTER Status: Acute Priority: High Current Visit: Yes Problem List Initiated/Reviewed/Updated: Yes Orders Last 24hrs: Active Orders 24 hr Category Date Time Status Patient Status [ADT] Routine ADT 01/12/20 09:44 Active Communication Order [RC] ASDIRECTED Care 01/12/20 09:44 Active Communication Order [RC] ASDIRECTED Care 01/12/20 09:44 Active Communication Order [RC] ASDIRECTED Care 01/12/20 09:44 Active Heart Tones [RC] ASDIRECTED Care 01/12/20 09:44 Active Non Stress Test [RC] PER UNIT ROUTINE Care 01/12/20 09:44 Active May Shower [RC] ASDIRECTED Care 01/12/20 09:44 Active Notify Provider [RC] PRN Care 01/12/20 09:44 Active Notify Provider [RC] PRN Care 01/12/20 09:44 Active Notify Provider [RC] PRN Care 01/12/20 09:44 Active Notify Provider [RC] STAT Care 01/12/20 09:44 Active Oxygen Therapy [RC] ASDIRECTED Care 01/12/20 09:44 Active Up ad June [RC] ASDIRECTED Care 01/12/20 09:44 Active Vaginal Exam [RC] PRN Care 01/12/20 09:44 Active Vaginal Exam [RC] PRN Care 01/12/20 09:44 Active Vital Signs [RC] PER UNIT ROUTINE Care 01/12/20 09:44 Active Vital Signs [RC] PER UNIT ROUTINE Care 01/12/20 09:44 Active Regular Diet [DIET] Diet 01/12/20 Breakfast Active BILE ACIDS [REF] Routine Lab 01/12/20 09:50 Ordered CBC W/O DIFF,HEMOGRAM [HEME] Routine Lab 01/12/20 09:44 Ordered COMPREHENSIVE METABOLIC PN,CMP [CHEM] Routine Lab 01/12/20 09:43 Ordered CORONAVIRUS COVID-19 PCR PHL Routine Lab 01/12/20 10:29 Ordered PROTEIN/CREATININE RATIO,URINE [URCHEM] Routine Lab 01/12/20 09:50 Ordered RPR (SYPHILIS SERO) W/ RFLX [REF] Routine Lab 01/12/20 09:44 Ordered TYPE AND SCREEN [BBK] Routine Lab 01/12/20 09:44 Ordered URIC ACID [CHEM] Routine Lab 01/12/20 09:50 Ordered URINALYSIS W/MICROSCOPIC [UA W/MICROSCOPIC] [URIN] Lab 01/12/20 09:51 Ordered Routine Acetaminophen [TylenoL] Med 01/12/20 09:43 Active 1,000 mg PO Q6H PRN Carboprost Tromethamine [Hemabate DS] Med 01/12/20 09:43 Active 250 mcg IM ASDIRECTED PRN Lactated Ringers [Ringers, Lactated] 1,000 ml Med 01/12/20 09:45 Active IV ASDIRECTED Lidocaine 1% [Xylocaine 1%] Med 01/12/20 09:43 Active 50 ml INJECT ONETIME PRN Methylergonovine [Methergine] Med 01/12/20 09:43 Active 0.2 mg IM ASDIRECTED PRN Nalbuphine [Nubain] Med 01/12/20 09:43 Active 10 mg IVPUSH Q1H PRN Ondansetron [Zofran] Med 01/12/20 09:43 Active 4 mg IVPUSH Q4H PRN Oxytocin/0.9 % Sodium Chloride [Oxytocin 30 Unit/500 ML Med 01/12/20 09:45 Active -NS] 30 unit in 500 ml IV TITRATE Oxytocin/0.9 % Sodium Chloride [Oxytocin 30 Unit/500 ML Med 01/12/20 09:45 Active -NS] 30 unit in 500 ml IV TITRATE Sodium Chloride 0.9% [Normal Saline] Med 01/12/20 09:43 Active 10 ml IV ASDIRECTED PRN Sodium Chloride 0.9% [Saline Flush] Med 01/12/20 09:43 Active 10 ml FLUSH ASDIRECTED PRN Sodium Chloride 0.9% [Saline Flush] Med 01/12/20 09:43 Active 2.5 ml FLUSH ASDIRECTED PRN Terbutaline [Brethine] Med 01/12/20 09:43 Active 0.25 mg SUBCUT ASDIRECTED PRN Tranexamic Acid [Cyklokapron] 1,000 mg Med 01/12/20 09:43 Active Sodium Chloride 0.9% [Normal Saline] 100 ml IV ONETIME Water For Irrigation,Sterile [Sterile Water for Med 01/12/20 09:43 Active Irrigation] 1,000 ml IRR ASDIRECTED PRN miSOPROStoL [Cytotec] Med 01/12/20 09:43 Active 200 mcg PO ONETIME PRN miSOPROStoL [Cytotec] Med 01/12/20 09:54 Active 25 mcg PO Q4H PRN miSOPROStoL [Cytotec] Med 01/12/20 09:43 Active 25 mcg VAG ONETIME PRN Scalp Electrode [WOMSER] Per Unit Routine Oth 01/12/20 09:44 Ordered Medication Administration Instruction [OM.PC] Q3H Oth 01/12/20 09:45 Ordered Peripheral IV Insertion Adult [OM.PC] Routine Oth 01/12/20 09:44 Ordered Resuscitation Status Routine Resus Stat 01/12/20 09:43 Ordered Medication Orders Acetaminophen (Tylenol) 1,000 mg PO Q6H PRN PRN Reason: mild pain and fever Carboprost Tromethamine (Hemabate Ds) 250 mcg IM ASDIRECTED PRN PRN Reason: Post Hemorrhage Oxytocin/Sodium Chloride (Oxytocin 30 Unit/500 Ml-Ns) 30 unit in 500 mls @ 999 mls/hr IV TITRATE KIKI Tranexamic Acid 1,000 mg/ (Sodium Chloride) 110 mls @ 660 mls/hr IV ONETIME PRN PRN Reason: Bleeding Oxytocin/Sodium Chloride (Oxytocin 30 Unit/500 Ml-Ns) 30 unit in 500 mls @ 2 mls/hr IV TITRATE KIKI; Protocol Lactated Ringer's (Ringers, Lactated) 1,000 mls @ 150 mls/hr IV ASDIRECTED KIKI Lidocaine HCl (Xylocaine 1%) 50 ml INJECT ONETIME PRN PRN Reason: Laceration repair Methylergonovine Maleate (Methergine) 0.2 mg IM ASDIRECTED PRN PRN Reason: Post Hemorrhage Misoprostol (Cytotec) 200 mcg PO ONETIME PRN PRN Reason: Post Hemorrhage Misoprostol (Cytotec) 25 mcg VAG ONETIME PRN PRN Reason: Cervical Ripening Misoprostol (Cytotec) 25 mcg PO Q4H PRN PRN Reason: Cervical Ripening Nalbuphine HCl (Nubain) 10 mg IVPUSH Q1H PRN PRN Reason: Pain (severe 7-10) Ondansetron HCl (Zofran) 4 mg IVPUSH Q4H PRN PRN Reason: Nausea/Vomiting Sodium Chloride (Saline Flush) 10 ml FLUSH ASDIRECTED PRN PRN Reason: Keep Vein Open Sodium Chloride (Saline Flush) 2.5 ml FLUSH ASDIRECTED PRN PRN Reason: Keep Vein Open Sodium Chloride (Normal Saline) 10 ml IV ASDIRECTED PRN PRN Reason: IV Use Sterile Water (Sterile Water For Irrigation) 1,000 ml IRR ASDIRECTED PRN PRN Reason: delivery Terbutaline Sulfate (Brethine) 0.25 mg SUBCUT ASDIRECTED PRN PRN Reason: Tacysystole Assessment/Plan Comment:: IOL A: 24yo EDC 01/31/2020 37 2/7wks A+, [place], GBS neg. Admitting to L&D due to elevated BP. Denies SUAREZ, blurred vision. States continued epigastric pain. C/O itching on palms and feet. Disc with Dr wyatt and will start IOL. P: Admit, labs PIH and Bile acid. Cytotec -> Pitocin. Epidural prn. Anticipate . Dr Wyatt updated.
[2020-01-12 11:12] LABS: BLOOD UREA NITROGEN,BUN 8 mg/dL (7.0-18.0); CARBON DIOXIDE,CO2 22.2 mmol/L (21.0-32.0); CHLORIDE,CL 104 mmol/L (98-107); GLUCOSE RANDOM 72 mg/dL (74-106); POTASSIUM,K 3.8 mmol/L (3.5-5.1); SODIUM,NA 138 mmol/L (136-145)
[2020-01-12] MEDS: Misoprostol 25 MCG (1/4 of 100 MCG) Tab PO PRN ×3 (11:22→20:25)
[2020-01-12] MEDS: Misoprostol 25 MCG (1/4 of 100 MCG) Tab VAG PRN ×2 (15:48→20:25)
[2020-01-12] MEDS: Lactated Ringers 1,000 ML IV SCH (18:40)
[2020-01-12] MEDS ORDERED: hydrOXYzine HCl 25 MG Tab PO PRN (19:07)
[2020-01-13] MEDS ORDERED: Butorphanol 1 MG/ML SDV IVPUSH ONE (00:32)
--- NOTE | 2020-01-13 00:34 | PCM.PREANE ---
Preanesthetic Assessment - Anesthesia/Transfusion/Family Hx Anesthesia History: Prior Anesthesia Without Reaction Family History of Anesthesia Reaction: No Transfusion History: No Prior Transfusion(s) - Review of Systems General: No Symptoms Pulmonary: No Symptoms Cardiovascular: No Symptoms Gastrointestinal: No Symptoms Neurological: No Symptoms - Physical Assessment NPO Status Date: 01/13/20 NPO Status Time: 12:15 Height: 1.68 m Weight: 77.111 kg ASA Class: 2 Mental Status: Alert & Oriented x3 Airway Class: Mallampati = 2 Dentition: Reports: Normal Dentition Thyro-Mental Finger Breadths: 3 Mouth Opening Finger Breadths: 3 (small mouth) ROM/Head Extension: Full Lungs: Clear to Auscultation, Normal Respiratory Effort Cardiovascular: Regular Rate, Regular Rhythm - Lab Values: Laboratory Last Values WBC 8.14 K/uL (4.0-11.0) 01/12/20 10:32 RBC 3.71 M/uL (4.30-5.90) L 01/12/20 10:32 Hgb 10.5 g/dL (12.0-16.0) L 01/12/20 10:32 Hct 32.2 % (36.0-46.0) L 01/12/20 10:32 MCV 86.8 fL (80.0-98.0) 01/12/20 10:32 MCH 28.3 pg (27.0-32.0) 01/12/20 10:32 MCHC 32.6 g/dL (31.0-37.0) 01/12/20 10:32 RDW Std Deviation 40.2 fl (28.0-62.0) 01/12/20 10:32 RDW Coeff of Corey 13 % (11.0-15.0) 01/12/20 10:32 Plt Count 248 K/uL (150-400) 01/12/20 10:32 MPV 10.70 fL (7.40-12.00) 01/12/20 10:32 Nucleated RBC % 0.0 /100WBC 01/12/20 10:32 Nucleated RBCs # 0 K/uL 01/12/20 10:32 Sodium 138 mmol/L (136-145) 01/12/20 10:32 Potassium 3.8 mmol/L (3.5-5.1) 01/12/20 10:32 Chloride 104 mmol/L (98-107) 01/12/20 10:32 Carbon Dioxide 22.2 mmol/L (21.0-32.0) 01/12/20 10:32 BUN 8 mg/dL (7.0-18.0) 01/12/20 10:32 Creatinine 0.7 mg/dL (0.6-1.0) 01/12/20 10:32 Est Cr Clr Drug Dosing 117.01 mL/min 01/12/20 10:32 Estimated GFR (MDRD) > 60.0 ml/min 01/12/20 10:32 Glucose 72 mg/dL (74-106) L 01/12/20 10:32 Uric Acid 5.1 mg/dL (2.6-7.2) 01/12/20 10:32 Calcium 8.5 mg/dL (8.5-10.1) 01/12/20 10:32 Total Bilirubin 0.3 mg/dL (0.2-1.0) 01/12/20 10:32 AST 35 IU/L (15-37) 01/12/20 10:32 ALT 34 IU/L (14-63) 01/12/20 10:32 Alkaline Phosphatase 131 U/L (46-116) H 01/12/20 10:32 Total Protein 6.4 g/dL (6.4-8.2) 01/12/20 10:32 Albumin 2.4 g/dL (3.4-5.0) L 01/12/20 10:32 Globulin 4.0 g/dL (2.6-4.0) 01/12/20 10:32 Albumin/Globulin Ratio 0.6 (0.9-1.6) L 01/12/20 10:32 Urine Color DARK YELLOW 01/12/20 10:15 Urine Appearance CLEAR 01/12/20 10:15 Urine pH 6.5 (5.0-8.0) 01/12/20 10:15 Ur Specific [place] >= 1.030 (1.001-1.035) 01/12/20 10:15 Urine Protein NEGATIVE mg/dL (NEGATIVE) 01/12/20 10:15 Urine Glucose (UA) NEGATIVE mg/dL (NEGATIVE) 01/12/20 10:15 Urine Ketones NEGATIVE mg/dL (NEGATIVE) 01/12/20 10:15 Urine Occult Blood NEGATIVE (NEGATIVE) 01/12/20 10:15 Urine Nitrite NEGATIVE (NEGATIVE) 01/12/20 10:15 Urine Bilirubin NEGATIVE (NEGATIVE) 01/12/20 10:15 Urine Urobilinogen 0.2 EU/dL (<2.0) 01/12/20 10:15 Ur Leukocyte Esterase NEGATIVE (NEGATIVE) 01/12/20 10:15 Urine RBC 0-2 (0-2/HPF) 01/12/20 10:15 Urine WBC 0-3 (0-5/HPF) 01/12/20 10:15 Ur Epithelial Cells MODERATE (NONE-FEW) 01/12/20 10:15 Urine Bacteria 2+ (NEGATIVE) H 01/12/20 10:15 Urine Mucus MODERATE (NONE-MOD) 01/12/20 10:15 Ur Random Creatinine 272.4 mg/dL 01/12/20 10:15 U Random Total Protein 34.3 mg/dL (<11.9) H 01/12/20 10:15 Protein/Creatinin Ratio 0.1 01/12/20 10:15 SARS-CoV-2 RNA (ABENA) NEGATIVE (NEGATIVE) 01/12/20 10:35 Blood Type A POSITIVE 01/12/20 10:32 Antibody Screen NEGATIVE 01/12/20 10:32 - Allergies Allergies/Adverse Reactions: Allergies Allergy/AdvReac Type Severity Reaction Status Date / Time amoxicillin Allergy Swelling Verified 12/03/19 15:24 Penicillins Allergy Swelling Verified 12/03/19 15:24 red dye Allergy Hives Verified 12/03/19 15:24 - Acknowledgements Anesthesia Type Planned: Epidural (The patient understands and accepts the anesthetic risks and benefits. She agrees to proceed. Her significant other was present during the entire evaluation.) Pt an Appropriate Candidate for the Planned Anesthesia: Yes Alternatives and Risks of Anesthesia Discussed w Pt/Guardian: Yes Pt/Guardian Understands and Agrees with Anesthesia Plan: Yes PreAnesthesia Questionnaire - Past Health History Medical/Surgical History: Denies Medical/Surgical History HEENT History: Reports: Other (See Below) Other HEENT History: recurrent tonsilitis. Cardiovascular History: Reports: None Respiratory History: Reports: Asthma Other Respiratory History: No treatment Gastrointestinal History: Reports: None Other Gastrointestinal History: RUQ Abdominal Pain Genitourinary History: Reports: None MUSIC INTERN History: Reports: None, (admitted for induced hypertension) Musculoskeletal History: Reports: None, Back Pain, Chronic, Other (See Below) (Mar 2016 crushing right hand injury which she underwent a spinal cord stimulator TRIAL. She does not plan on getting a permanent spinal cord stimulator because she did not like the way it made her feel.) Neurological History: Reports: Migraines Other Neuro History: Migraine with Aura; Tinnitus; Episodic Lightheadedness; Occasional LOC Psychiatric History: Reports: Anxiety, Depression Endocrine/Metabolic History: Reports: None Hematologic History: Reports: None Immunologic History: Reports: None Oncologic (Cancer) History: Reports: None Dermatologic History: Reports: None - Infectious Disease History Infectious Disease History: Reports: Chicken Pox - Past Surgical History Head Surgeries/Procedures: Reports: None HEENT Surgical History: Reports: Other (See Below) Other HEENT Surgeries/Procedures: wisdom tooth Musculoskeletal Surgical History: Reports: Other (See Below) Other Musculoskeletal Surgeries/Procedures:: crushing injury to right hand and spinal cord stimulator inserted - SUBSTANCE USE Tobacco Use Status *Q: Never Tobacco User Second Hand Smoke Exposure: No Recreational Drug Use History: No - HOME MEDS Home Medications: Home Meds Pnv No.95/Ferrous Fum/Folic AC [ Vitamins Tablet] 1 tab PO DAILY 10/26/19 [History] Butalbital/Aspirin/Caffeine [Teoocu-Ggknjua-Oodim 50-325-40] 1 each PO Q6H PRN 12/03/19 [History] Cyclobenzaprine HCl 5 mg PO TID PRN 12/03/19 [History] hydrOXYzine HCL [Atarax] 50 mg PO Q6H 12/22/19 [History] - CURRENT (IN HOUSE) MEDS Current Meds: Current Medications Acetaminophen (Tylenol) 1,000 mg PO Q6H PRN PRN Reason: mild pain and fever Last Admin: 01/12/20 18:22 Dose: 975 mg Documented by: Butorphanol Tartrate (Stadol) 1 mg IVPUSH ONETIME ONE Stop: 01/13/20 00:33 Carboprost Tromethamine (Hemabate Ds) 250 mcg IM ASDIRECTED PRN PRN Reason: Post Hemorrhage Hydroxyzine HCl (Atarax) 50 mg PO Q6H PRN PRN Reason: Other Last Admin: 01/12/20 21:33 Dose: 50 mg Documented by: Oxytocin/Sodium Chloride (Oxytocin 30 Unit/500 Ml-Ns) 30 unit in 500 mls @ 999 mls/hr IV TITRATE KIKI Tranexamic Acid 1,000 mg/ (Sodium Chloride) 110 mls @ 660 mls/hr IV ONETIME PRN PRN Reason: Bleeding Oxytocin/Sodium Chloride (Oxytocin 30 Unit/500 Ml-Ns) 30 unit in 500 mls @ 2 mls/hr IV TITRATE [facility] [place]; Protocol Lactated Ringer's (Ringers, Lactated) 1,000 mls @ 150 mls/hr IV ASDIRECTED KIKI Last Admin: 01/12/20 18:40 Dose: 150 mls/hr Documented by: Lidocaine HCl (Xylocaine 1%) 50 ml INJECT ONETIME PRN PRN Reason: Laceration repair Methylergonovine Maleate (Methergine) 0.2 mg IM ASDIRECTED PRN PRN Reason: Post Hemorrhage Misoprostol (Cytotec) 200 mcg PO ONETIME PRN PRN Reason: Post Hemorrhage Misoprostol (Cytotec) 25 mcg VAG ONETIME PRN PRN Reason: Cervical Ripening Last Admin: 01/12/20 11:22 Dose: 25 mcg Documented by: Misoprostol (Cytotec) 25 mcg PO Q4H PRN PRN Reason: Cervical Ripening Last Admin: 01/12/20 20:25 Dose: 25 mcg Documented by: Misoprostol (Cytotec) 25 mcg VAG Q4H PRN PRN Reason: Other Last Admin: 01/12/20 20:25 Dose: 25 mcg Documented by: Nalbuphine HCl (Nubain) 10 mg IVPUSH Q1H PRN PRN Reason: Pain (severe 7-10) Ondansetron HCl (Zofran) 4 mg IVPUSH Q4H PRN PRN Reason: Nausea/Vomiting Sodium Chloride (Saline Flush) 10 ml FLUSH ASDIRECTED PRN PRN Reason: Keep Vein Open Sodium Chloride (Saline Flush) 2.5 ml FLUSH ASDIRECTED PRN PRN Reason: Keep Vein Open Sodium Chloride (Normal Saline) 10 ml IV ASDIRECTED PRN PRN Reason: IV Use Sterile Water (Sterile Water For Irrigation) 1,000 ml IRR ASDIRECTED PRN PRN Reason: delivery Terbutaline Sulfate (Brethine) 0.25 mg SUBCUT ASDIRECTED PRN PRN Reason: Tacysystole Discontinued Medications Misoprostol (Cytotec) 25 mcg VAG Q4H PRN PRN Reason: Cervical Ripening
[2020-01-13] MEDS ORDERED: Ropivacaine HCl/PF 100 ML ONE (00:47)
[2020-01-13] MEDS: Lactated Ringers 1,000 ML IV SCH (01:12)
--- NOTE | 2020-01-13 01:38 | PCM.SN.2 ---
- Free Text/Narrative Note: Risks benefits discussed and consent signed. patient monitored, with FHR. 00:51 Time out Epidural done with a sterile technique. Patient's back prepped with chlorhexidine and draped. 1% lidocaine 3ml given for skin infiltration. 17 gauge touhy with remberto at 7.0 cm. epidural catheter threaded easily with no paresthesias. aspiration of catheter negative for blood and csf. 01:05 1.5% lidocaine with epinephrine 3ml test dose was negative. 01:07 2 ml of lidocaine with epinephrine was given as a bolus. 01:11 5 ml 0.2% Ropivacaine 5 ml given. Patient tolerated the procedure well, and was able to communicate throughout the entire procedure. One attempt. 01:14 0.2% Ropivacaine 9 ml/hr started. Patient has is "completely comfortable".
[2020-01-13] MEDS ORDERED: Oxytocin/0.9 % Sodium Chloride 0 UNIT/0 ML BAG ONE (06:30)
--- NOTE | 2020-01-13 09:14 | PCM.DEL ---
L & D Note - General Info Date of Service: 01/13/20 Mother's Due Date: 01/31/20 - Delivery Note Labor: Augmented by Oxytocin Cervical Ripening Method: Misoprostil Delivery Outcome: Livebirth Infant Delivery Method: Spontaneous Vaginal Delivery-Single Delivery Mode: Spontaneous Presentation: Vertex (confirmed via limited TAUS) Nuchal Cord: Present (reduced over head) Anesthesia Type: Epidural Amniotic Fluid Description: Clear Episiotomy Type: None Laceration: None Placenta: Intact, Spontaneous Cord: 3 Vessels Estimated Blood Loss: 250 Resuscitation Needed: No Score 1 min: 5 Score 5 min: 9 Second Stage Interventions: Reports: Pushing, Pulls Own Legs Back Delivery Comments (Free Text/Narrative):: of viable male. Head delivered with good pushing. Nuchal x1 reduced over head, shoulders and body followed easily. to mothers abd with RN at for evaluation of infant. Delayed cord clamping. Cord clamped and cut by FOB. Pitocin to IVF. Placenta delivered grossly intact. Inspection noted intact perineum, sm upper labial right side skid delvin. No repair needed. EBL 250cc. APGARS 5/9. Wt pending. Infant to nursery for evaluation. Induction Criteria - Denise Score Denise Score Dilation: 1-2 cm Denise Score Effacement: 40-50% Denise Score 's Station: -2 Denise Score Consistency: Medium Denise Score Cervix Position: Posterior Denise Score Total: 4 Denise Score Presenting Part: Reports: Cephalic - Induction Gestational Age >/= 39 wks: No Medical Indication: elevated BP Reassuring Monitoring Strip: Yes Absence of Tachy Systole: Yes - General Info Date of Service: 01/13/20 Admission Dx/Problem (Free Text): Patient Status Order with Admit Dx/Problem 01/12/20 09:44 Patient Status [ADT] Routine Admission Diagnosis/Problem Admission Diagnosis/Problem 01/12/20 10:38 24yo EDC 01/31/2020 37 2/7wks A+, RI, GBS neg. Admitting to L&D due to elevated BP. IOL. Functional Status: Reports: Pain Controlled - Review of Systems General: Reports: No Symptoms HEENT: Reports: No Symptoms Pulmonary: Reports: No Symptoms Cardiovascular: Reports: No Symptoms Gastrointestinal: Reports: No Symptoms Genitourinary: Reports: No Symptoms Musculoskeletal: Reports: No Symptoms Skin: Reports: No Symptoms Neurological: Reports: No Symptoms Psychiatric: Reports: No Symptoms - Patient Data Weight - Most Recent: 77.111 kg Lab Results Last 24 Hours: Laboratory Results - last 24 hr 01/12/20 01/12/20 01/12/20 Range/Units 10:15 10:15 10:32 WBC (4.0-11.0) K/uL RBC (4.30-5.90) M/uL Hgb (12.0-16.0) g/dL Hct (36.0-46.0) % MCV (80.0-98.0) fL MCH (27.0-32.0) pg MCHC (31.0-37.0) g/dL RDW Std Deviation (28.0-62.0) fl RDW Coeff of Corey (11.0-15.0) % Plt Count (150-400) K/uL MPV (7.40-12.00) fL Nucleated RBC % /100WBC Nucleated RBCs # K/uL Sodium 138 (136-145) mmol/L Potassium 3.8 (3.5-5.1) mmol/L Chloride 104 (98-107) mmol/L Carbon Dioxide 22.2 (21.0-32.0) mmol/L BUN 8 (7.0-18.0) mg/dL Creatinine 0.7 (0.6-1.0) mg/dL Est Cr Clr Drug Dosing 117.01 mL/min Estimated GFR (MDRD) > 60.0 ml/min Glucose 72 L (74-106) mg/dL Uric Acid (2.6-7.2) mg/dL Calcium 8.5 (8.5-10.1) mg/dL Total Bilirubin 0.3 (0.2-1.0) mg/dL AST 35 (15-37) IU/L ALT 34 (14-63) IU/L Alkaline Phosphatase 131 H (46-116) U/L Total Protein 6.4 (6.4-8.2) g/dL Albumin 2.4 L (3.4-5.0) g/dL Globulin 4.0 (2.6-4.0) g/dL Albumin/Globulin Ratio 0.6 L (0.9-1.6) Urine Color DARK YELLOW Urine Appearance CLEAR Urine pH 6.5 (5.0-8.0) Ur Specific [place] >= 1.030 (1.001-1.035) Urine Protein NEGATIVE (NEGATIVE) mg/dL Urine Glucose (UA) NEGATIVE (NEGATIVE) mg/dL Urine Ketones NEGATIVE (NEGATIVE) mg/dL Urine Occult Blood NEGATIVE (NEGATIVE) Urine Nitrite NEGATIVE (NEGATIVE) Urine Bilirubin NEGATIVE (NEGATIVE) Urine Urobilinogen 0.2 (<2.0) EU/dL Ur Leukocyte Esterase NEGATIVE (NEGATIVE) Urine RBC 0-2 (0-2/HPF) Urine WBC 0-3 (0-5/HPF) Ur Epithelial Cells MODERATE (NONE-FEW) Urine Bacteria 2+ H (NEGATIVE) Urine Mucus MODERATE (NONE-MOD) Ur Random Creatinine 272.4 mg/dL U Random Total Protein 34.3 H (<11.9) mg/dL Protein/Creatinin Ratio 0.1 SARS-CoV-2 RNA (ABENA) (NEGATIVE) Blood Type Antibody Screen 01/12/20 01/12/20 01/12/20 Range/Units 10:32 10:32 10:32 WBC 8.14 (4.0-11.0) K/uL RBC 3.71 L (4.30-5.90) M/uL Hgb 10.5 L (12.0-16.0) g/dL Hct 32.2 L (36.0-46.0) % MCV 86.8 (80.0-98.0) fL MCH 28.3 (27.0-32.0) pg MCHC 32.6 (31.0-37.0) g/dL RDW Std Deviation 40.2 (28.0-62.0) fl RDW Coeff of Corey 13 (11.0-15.0) % Plt Count 248 (150-400) K/uL MPV 10.70 (7.40-12.00) fL Nucleated RBC % 0.0 /100WBC Nucleated RBCs # 0 K/uL Sodium (136-145) mmol/L Potassium (3.5-5.1) mmol/L Chloride (98-107) mmol/L Carbon Dioxide (21.0-32.0) mmol/L BUN (7.0-18.0) mg/dL Creatinine (0.6-1.0) mg/dL Est Cr Clr Drug Dosing mL/min Estimated GFR (MDRD) ml/min Glucose (74-106) mg/dL Uric Acid 5.1 (2.6-7.2) mg/dL Calcium (8.5-10.1) mg/dL Total Bilirubin (0.2-1.0) mg/dL AST (15-37) IU/L ALT (14-63) IU/L Alkaline Phosphatase (46-116) U/L Total Protein (6.4-8.2) g/dL Albumin (3.4-5.0) g/dL Globulin (2.6-4.0) g/dL Albumin/Globulin Ratio (0.9-1.6) Urine Color Urine Appearance Urine pH (5.0-8.0) Ur Specific [place] (1.001-1.035) Urine Protein (NEGATIVE) mg/dL Urine Glucose (UA) (NEGATIVE) mg/dL Urine Ketones (NEGATIVE) mg/dL Urine Occult Blood (NEGATIVE) Urine Nitrite (NEGATIVE) Urine Bilirubin (NEGATIVE) Urine Urobilinogen (<2.0) EU/dL Ur Leukocyte Esterase (NEGATIVE) Urine RBC (0-2/HPF) Urine WBC (0-5/HPF) Ur Epithelial Cells (NONE-FEW) Urine Bacteria (NEGATIVE) Urine Mucus (NONE-MOD) Ur Random Creatinine mg/dL U Random Total Protein (<11.9) mg/dL Protein/Creatinin Ratio SARS-CoV-2 RNA (ABENA) (NEGATIVE) Blood Type A POSITIVE Antibody Screen NEGATIVE 01/12/20 Range/Units 10:35 WBC (4.0-11.0) K/uL RBC (4.30-5.90) M/uL Hgb (12.0-16.0) g/dL Hct (36.0-46.0) % MCV (80.0-98.0) fL MCH (27.0-32.0) pg MCHC (31.0-37.0) g/dL RDW Std Deviation (28.0-62.0) fl RDW Coeff of Corey (11.0-15.0) % Plt Count (150-400) K/uL MPV (7.40-12.00) fL Nucleated RBC % /100WBC Nucleated RBCs # K/uL Sodium (136-145) mmol/L Potassium (3.5-5.1) mmol/L Chloride (98-107) mmol/L Carbon Dioxide (21.0-32.0) mmol/L BUN (7.0-18.0) mg/dL Creatinine (0.6-1.0) mg/dL Est Cr Clr Drug Dosing mL/min Estimated GFR (MDRD) ml/min Glucose (74-106) mg/dL Uric Acid (2.6-7.2) mg/dL Calcium (8.5-10.1) mg/dL Total Bilirubin (0.2-1.0) mg/dL AST (15-37) IU/L ALT (14-63) IU/L Alkaline Phosphatase (46-116) U/L Total Protein (6.4-8.2) g/dL Albumin (3.4-5.0) g/dL Globulin (2.6-4.0) g/dL Albumin/Globulin Ratio (0.9-1.6) Urine Color Urine Appearance Urine pH (5.0-8.0) Ur Specific [place] (1.001-1.035) Urine Protein (NEGATIVE) mg/dL Urine Glucose (UA) (NEGATIVE) mg/dL Urine Ketones (NEGATIVE) mg/dL Urine Occult Blood (NEGATIVE) Urine Nitrite (NEGATIVE) Urine Bilirubin (NEGATIVE) Urine Urobilinogen (<2.0) EU/dL Ur Leukocyte Esterase (NEGATIVE) Urine RBC (0-2/HPF) Urine WBC (0-5/HPF) Ur Epithelial Cells (NONE-FEW) Urine Bacteria (NEGATIVE) Urine Mucus (NONE-MOD) Ur Random Creatinine mg/dL U Random Total Protein (<11.9) mg/dL Protein/Creatinin Ratio SARS-CoV-2 RNA (ABENA) NEGATIVE (NEGATIVE) Blood Type Antibody Screen Med Orders - Current: Current Medications Acetaminophen (Tylenol) 1,000 mg PO Q6H PRN PRN Reason: mild pain and fever Last Admin: 01/12/20 18:22 Dose: 975 mg Documented by: Carboprost Tromethamine (Hemabate Ds) 250 mcg IM ASDIRECTED PRN PRN Reason: Post Hemorrhage Hydroxyzine HCl (Atarax) 50 mg PO Q6H PRN PRN Reason: Other Last Admin: 01/12/20 21:33 Dose: 50 mg Documented by: Oxytocin/Sodium Chloride (Oxytocin 30 Unit/500 Ml-Ns) 30 unit in 500 mls @ 999 mls/hr IV TITRATE KIKI Tranexamic Acid 1,000 mg/ (Sodium Chloride) 110 mls @ 660 mls/hr IV ONETIME PRN PRN Reason: Bleeding Oxytocin/Sodium Chloride (Oxytocin 30 Unit/500 Ml-Ns) 30 unit in 500 mls @ 2 mls/hr IV TITRATE KIKI; Protocol Lactated Ringer's (Ringers, Lactated) 1,000 mls @ 150 mls/hr IV ASDIRECTED KIKI Last Admin: 01/13/20 01:12 Dose: 150 mls/hr Documented by: Lidocaine HCl (Xylocaine 1%) 50 ml INJECT ONETIME PRN PRN Reason: Laceration repair Methylergonovine Maleate (Methergine) 0.2 mg IM ASDIRECTED PRN PRN Reason: Post Hemorrhage Misoprostol (Cytotec) 200 mcg PO ONETIME PRN PRN Reason: Post Hemorrhage Misoprostol (Cytotec) 25 mcg VAG ONETIME PRN PRN Reason: Cervical Ripening Last Admin: 01/12/20 11:22 Dose: 25 mcg Documented by: Misoprostol (Cytotec) 25 mcg PO Q4H PRN PRN Reason: Cervical Ripening Last Admin: 01/12/20 20:25 Dose: 25 mcg Documented by: Misoprostol (Cytotec) 25 mcg VAG Q4H PRN PRN Reason: Other Last Admin: 01/12/20 20:25 Dose: 25 mcg Documented by: Nalbuphine HCl (Nubain) 10 mg IVPUSH Q1H PRN PRN Reason: Pain (severe 7-10) Ondansetron HCl (Zofran) 4 mg IVPUSH Q4H PRN PRN Reason: Nausea/Vomiting Sodium Chloride (Saline Flush) 10 ml FLUSH ASDIRECTED PRN PRN Reason: Keep Vein Open Sodium Chloride (Saline Flush) 2.5 ml FLUSH ASDIRECTED PRN PRN Reason: Keep Vein Open Sodium Chloride (Normal Saline) 10 ml IV ASDIRECTED PRN PRN Reason: IV Use Sterile Water (Sterile Water For Irrigation) 1,000 ml IRR ASDIRECTED PRN PRN Reason: delivery Terbutaline Sulfate (Brethine) 0.25 mg SUBCUT ASDIRECTED PRN PRN Reason: Tacysystole Discontinued Medications Butorphanol Tartrate (Stadol) 1 mg IVPUSH ONETIME ONE Stop: 01/13/20 00:33 Last Admin: 01/13/20 00:47 Dose: 1 mg Documented by: Ropivacaine (Naropin 0.2%) Confirm Administered Dose 100 mls @ as directed .ROUTE .STK-MED ONE Stop: 01/13/20 00:48 Last Admin: 01/13/20 07:25 Dose: Not Given Documented by: Oxytocin/Sodium Chloride (Oxytocin 30 Unit/500 Ml-Ns) Confirm Administered Dose 30 unit in 500 mls @ as directed .ROUTE .STK-MED ONE Stop: 01/13/20 06:31 Misoprostol (Cytotec) 25 mcg VAG Q4H PRN PRN Reason: Cervical Ripening - Exam General: Alert, Oriented, Cooperative, No Acute Distress Lungs: Normal Respiratory Effort GI/Abdominal Exam: Soft, Non-Tender, Pelvis Stable (Female) Exam: Normal External Exam, Normal Bimanual Exam, Vaginal Bleeding. No: Cervical Lesions, Vaginal Lesions, Vaginal Tears Back Exam: Normal Inspection Extremities: Normal Inspection, No Pedal Edema Skin: Warm, Dry, Intact Wound/Incisions: Healing Well Neurological: No New Focal Deficit, Normal Speech, Normal Tone, Strength Equal Bilateral Psy/Mental Status: Alert, Normal Affect, Normal Mood - Problem List & Annotations (1) Supervision of normal IUP (intrauterine ) in primigravida SNOMED Code(s): 17383372, 411690904, 660569675, 403985343 Code(s): Z34.00 - ENCNTR FOR SUPRVSN OF NORMAL FIRST , UNSP TRIMESTER Status: Acute Priority: High Current Visit: Yes Qualifiers: Trimester: third trimester Qualified Code(s): Z34.03 - Encounter for supervision of normal first , third trimester (2) Elevated blood pressure affecting in third trimester, antepartum SNOMED Code(s): 21990566, 94010754, 845574286 Code(s): O16.3 - UNSPECIFIED MATERNAL HYPERTENSION, THIRD TRIMESTER Status: Acute Priority: High Current Visit: Yes - Problem List Review Problem List Initiated/Reviewed/Updated: Yes - My Orders Last 24 Hours: My Active Orders 01/12/20 09:43 Acetaminophen [TylenoL] 1,000 mg PO Q6H PRN Carboprost Tromethamine [Hemabate DS] 250 mcg IM ASDIRECTED PRN Lidocaine 1% [Xylocaine 1%] 50 ml INJECT ONETIME PRN Methylergonovine [Methergine] 0.2 mg IM ASDIRECTED PRN Nalbuphine [Nubain] 10 mg IVPUSH Q1H PRN Ondansetron [Zofran] 4 mg IVPUSH Q4H PRN Sodium Chloride 0.9% [Normal Saline] 10 ml IV ASDIRECTED PRN Sodium Chloride 0.9% [Saline Flush] 10 ml FLUSH ASDIRECTED PRN Sodium Chloride 0.9% [Saline Flush] 2.5 ml FLUSH ASDIRECTED PRN Terbutaline [Brethine] 0.25 mg SUBCUT ASDIRECTED PRN Tranexamic Acid [Cyklokapron] 1,000 mg Sodium Chloride 0.9% [Normal Saline] 100 ml IV ONETIME Water For Irrigation,Sterile [Sterile Water for Irrigation] 1,000 ml IRR ASDIRECTED PRN miSOPROStoL [Cytotec] 200 mcg PO ONETIME PRN miSOPROStoL [Cytotec] 25 mcg VAG ONETIME PRN Resuscitation Status Routine 01/12/20 09:44 Patient Status [ADT] Routine Communication Order [RC] ASDIRECTED Communication Order [RC] ASDIRECTED Communication Order [RC] ASDIRECTED Heart Tones [RC] ASDIRECTED Non Stress Test [RC] PER UNIT ROUTINE May Shower [RC] ASDIRECTED Notify Provider [RC] PRN Notify Provider [RC] PRN Notify Provider [RC] PRN Notify Provider [RC] STAT Oxygen Therapy [RC] ASDIRECTED Up ad June [RC] ASDIRECTED Vaginal Exam [RC] PRN Vaginal Exam [RC] PRN Vital Signs [RC] PER UNIT ROUTINE Vital Signs [RC] PER UNIT ROUTINE Scalp Electrode [WOMSER] Per Unit Routine Peripheral IV Insertion Adult [OM.PC] Routine 01/12/20 09:45 Lactated Ringers [Ringers, Lactated] 1,000 ml IV ASDIRECTED Oxytocin/0.9 % Sodium Chloride [Oxytocin 30 Unit/500 ML-NS] 30 unit in 500 ml IV TITRATE Oxytocin/0.9 % Sodium Chloride [Oxytocin 30 Unit/500 ML-NS] 30 unit in 500 ml IV TITRATE Medication Administration Instruction [OM.PC] Q3H 01/12/20 09:54 miSOPROStoL [Cytotec] 25 mcg PO Q4H PRN 01/12/20 10:32 BILE ACIDS [REF] Routine RPR (SYPHILIS SERO) W/ RFLX [REF] Routine 01/12/20 15:36 miSOPROStoL [Cytotec] 25 mcg VAG Q4H PRN 01/12/20 19:07 hydrOXYzine HCL [Atarax] 50 mg PO Q6H PRN - Plan Plan:: IOL A: 24yo EDC 01/31/2020 37 2/7wks A+, RI, GBS neg. Admitting to L&D due to elevated BP. Denies SUAREZ, blurred vision. States continued epigastric pain. C/O itching on palms and feet. Disc with Dr wyatt and will start IOL. P: Admit, labs PIH and Bile acid. Cytotec -> Pitocin. Epidural prn. Anticipate . Dr Wyatt updated. Delivery A: of viable male, APGARS 5/9, Wt pending, intact, EBL 250cc. Stable P: Routine pp plan of care
[2020-01-13] MEDS ORDERED: oxyCODONE 5 MG Tab PO PRN (09:17)
[2020-01-13] MEDS ORDERED: Acetaminophen 500 MG Tab PO PRN (09:17)
[2020-01-13] MEDS ORDERED: Benzocaine/Menthol 20%-0.5% Spray 78 GM Cannister TOP PRN (09:17)
[2020-01-13] MEDS ORDERED: Bisacodyl 10 MG Supp RECTAL PRN (09:17)
[2020-01-13] MEDS ORDERED: Docusate Sodium 100 MG Cap PO PRN (09:17)
[2020-01-13] MEDS ORDERED: Ibuprofen 800 MG Tab PO PRN (09:17)
[2020-01-13] MEDS ORDERED: Lanolin 100% Cream 7 GM Tube TOP PRN (09:17)
[2020-01-13] MEDS ORDERED: Ibuprofen 400 MG Tab PO PRN (09:17)
[2020-01-13] MEDS: Witch Hazel Medicated Pads 40/Jar TOP PRN (12:44)
[2020-01-13] MEDS ORDERED: Ibuprofen 200 MG Tab PO PRN (19:00)
[2020-01-14] MEDS: Acetaminophen 500 MG Tab PO PRN ×2 (08:14→15:34)
--- NOTE | 2020-01-14 08:53 | PCM.DCSUM1 ---
Discharge Summary - Hospital Course Free Text/Narrative:: Diandra is a 24 yo PPD1 S/P uncomplicated to term NBM. A pos, RI, GBS neg. Patient is exclusively well, resting comfortably in bed with in arms. Patient reports she is eating, voiding, ambulating independently and without difficulty. Patient denies any problems or concerns at this time except mild headache and mild-moderate intermittent uterine cramping relieved with Ibuprofen. Patient reports small to moderate rubra lo vincenzo with no clots. Patient verbalizes her readiness to be discharged home. Diagnosis: Stroke: No - Discharge Data Discharge Date: 01/14/20 Discharge Disposition: Home, Self-Care 01 Condition: Good - Referral to Home Health Primary Care Physician: Michele Dent, DO - Patient Instructions Diet: Usual Diet as Tolerated, Regular Diet as Tolerated, Drink 8-10+ Glasses/Day Activity: As Tolerated, No Strenuous Activities Driving: May Drive Today Showering/Bathing: May Shower Showering/Bathing, Other: Sitz baths for comfort Notify Provider of: Fever, Increased Pain, Swelling and Redness, Drainage, Nausea and/or Vomiting - Discharge Plan *PRESCRIPTION DRUG MONITORING PROGRAM REVIEWED*: No *COPY OF PRESCRIPTION DRUG MONITORING REPORT IN PATIENT MARIAH: No Home Medications: Home Meds Pnv No.95/Ferrous Fum/Folic AC [ Vitamins Tablet] 1 tab PO DAILY 10/26/19 [History] Butalbital/Aspirin/Caffeine [Uzclmc-Nazpgsx-Bains 50-325-40] 1 each PO Q6H PRN 12/03/19 [History] Oxygen Therapy Mode: Room Air Referrals: [facility] [Outside] Arya Wyatt MD [Physician] - 02/23/20 3:00 pm - Discharge Summary/Plan Comment DC Time >30 min.: Yes - General Info Date of Service: 01/14/20 Admission Dx/Problem (Free Text: Patient Status Order with Admit Dx/Problem 01/12/20 09:44 Patient Status [ADT] Routine Admission Diagnosis/Problem Admission Diagnosis/Problem 01/12/20 10:38 24yo EDC 01/31/2020 37 2/7wks A+, RI, GBS neg. Admitting to L&D due to elevated BP. IOL. Functional Status: Reports: Pain Controlled - Review of Systems General: Reports: No Symptoms HEENT: Reports: No Symptoms Pulmonary: Reports: No Symptoms Cardiovascular: Reports: No Symptoms Gastrointestinal: Reports: No Symptoms Genitourinary: Reports: No Symptoms Musculoskeletal: Reports: No Symptoms Skin: Reports: No Symptoms Neurological: Reports: No Symptoms Psychiatric: Reports: No Symptoms - Patient Data Vitals - Most Recent: Last Vital Signs Temp 97 F 01/14/20 03:57 Pulse 66 01/14/20 03:57 Resp 15 01/14/20 03:57 BP 124/77 01/14/20 03:57 Pulse Ox 98 01/14/20 03:57 Weight - Most Recent: 170 lb Lab Results - Last 24 hrs: Laboratory Results - last 24 hr 01/12/20 Range/Units 10:32 RPR Non-Reac (Non-Reac) Med Orders - Current: Current Medications Acetaminophen (Tylenol Extra Strength) 500 mg PO Q4H PRN PRN Reason: Pain Acetaminophen (Tylenol Extra Strength) 1,000 mg PO Q4H PRN PRN Reason: Pain Last Admin: 01/14/20 08:14 Dose: 1,000 mg Documented by: Benzocaine/Menthol (Dermoplast Pain Relief 20%-0.5% [place]) 78 gm TOP ASDIRECTED PRN PRN Reason: Perineal Comfort Measure Last Admin: 01/13/20 12:44 Dose: 1 canister Documented by: Bisacodyl (Dulcolax) 10 mg RECTAL ONETIME PRN PRN Reason: Constipation Docusate Sodium (Colace) 100 mg PO BID PRN PRN Reason: Constipation Emollient Ointment (Lansinoh Hpa) 0 gm TOP ASDIRECTED PRN PRN Reason: Sore Nipples Last Admin: 01/13/20 12:44 Dose: 7 tube Documented by: Ibuprofen (Motrin) 400 mg PO Q4H PRN PRN Reason: Pain Ibuprofen (Motrin) 800 mg PO Q6H PRN PRN Reason: Pain Last Admin: 01/13/20 22:33 Dose: 800 mg Documented by: Oxycodone HCl (Oxycodone) 5 mg PO Q2H PRN PRN Reason: Pain Witch Vikki (Tucks) 1 pad TOP ASDIRECTED PRN PRN Reason: comfort care Last Admin: 01/13/20 12:44 Dose: 1 tub Documented by: Discontinued Medications Acetaminophen (Tylenol) 1,000 mg PO Q6H PRN PRN Reason: mild pain and fever Last Admin: 01/12/20 18:22 Dose: 975 mg Documented by: Butorphanol Tartrate (Stadol) 1 mg IVPUSH ONETIME ONE Stop: 01/13/20 00:33 Last Admin: 01/13/20 00:47 Dose: 1 mg Documented by: Carboprost Tromethamine (Hemabate Ds) 250 mcg IM ASDIRECTED PRN PRN Reason: Post Hemorrhage Hydroxyzine HCl (Atarax) 50 mg PO Q6H PRN PRN Reason: Other Last Admin: 01/12/20 21:33 Dose: 50 mg Documented by: Oxytocin/Sodium Chloride (Oxytocin 30 Unit/500 Ml-Ns) 30 unit in 500 mls @ 999 mls/hr IV TITRATE KIKI Last Admin: 01/13/20 08:47 Dose: 999 mls/hr Documented by: Tranexamic Acid 1,000 mg/ (Sodium Chloride) 110 mls @ 660 mls/hr IV ONETIME PRN PRN Reason: Bleeding Oxytocin/Sodium Chloride (Oxytocin 30 Unit/500 Ml-Ns) 30 unit in 500 mls @ 2 mls/hr IV TITRATE KIKI; Protocol Lactated Ringer's (Ringers, Lactated) 1,000 mls @ 150 mls/hr IV ASDIRECTED KIKI Last Admin: 01/13/20 01:12 Dose: 150 mls/hr Documented by: Ropivacaine (Naropin 0.2%) Confirm Administered Dose 100 mls @ as directed .ROUTE .STK-MED ONE Stop: 01/13/20 00:48 Last Admin: 01/13/20 07:25 Dose: Not Given Documented by: Oxytocin/Sodium Chloride (Oxytocin 30 Unit/500 Ml-Ns) Confirm Administered Dose 0 unit in 0 mls @ as directed .ROUTE .STK-MED ONE Stop: 01/13/20 06:31 Ibuprofen (Motrin) 800 mg PO Q6H PRN PRN Reason: Pain Last Admin: 01/13/20 12:45 Dose: 800 mg Documented by: Lidocaine HCl (Xylocaine 1%) 50 ml INJECT ONETIME PRN PRN Reason: Laceration repair Methylergonovine Maleate (Methergine) 0.2 mg IM ASDIRECTED PRN PRN Reason: Post Hemorrhage Misoprostol (Cytotec) 200 mcg PO ONETIME PRN PRN Reason: Post Hemorrhage Misoprostol (Cytotec) 25 mcg VAG ONETIME PRN PRN Reason: Cervical Ripening Last Admin: 01/12/20 11:22 Dose: 25 mcg Documented by: Misoprostol (Cytotec) 25 mcg VAG Q4H PRN PRN Reason: Cervical Ripening Misoprostol (Cytotec) 25 mcg PO Q4H PRN PRN Reason: Cervical Ripening Last Admin: 01/12/20 20:25 Dose: 25 mcg Documented by: Misoprostol (Cytotec) 25 mcg VAG Q4H PRN PRN Reason: Other Last Admin: 01/12/20 20:25 Dose: 25 mcg Documented by: Nalbuphine HCl (Nubain) 10 mg IVPUSH Q1H PRN PRN Reason: Pain (severe 7-10) Ondansetron HCl (Zofran) 4 mg IVPUSH Q4H PRN PRN Reason: Nausea/Vomiting Sodium Chloride (Saline Flush) 10 ml FLUSH ASDIRECTED PRN PRN Reason: Keep Vein Open Sodium Chloride (Saline Flush) 2.5 ml FLUSH ASDIRECTED PRN PRN Reason: Keep Vein Open Sodium Chloride (Normal Saline) 10 ml IV ASDIRECTED PRN PRN Reason: IV Use Sterile Water (Sterile Water For Irrigation) 1,000 ml IRR ASDIRECTED PRN PRN Reason: delivery Terbutaline Sulfate (Brethine) 0.25 mg SUBCUT ASDIRECTED PRN PRN Reason: Tacysystole - Exam General: Reports: Alert, Oriented, Cooperative, No Acute Distress HEENT: Reports: Pupils Equal, Pupils Reactive, Mucous Membr. Moist/[place] Neck: Reports: Supple Lungs: Reports: Clear to Auscultation, Normal Respiratory Effort Cardiovascular: Reports: Regular Rate, Regular Rhythm GI/Abdominal Exam: Normal Bowel Sounds, Soft, Non-Tender, No Organomegaly, No Distention (Female) Exam: Normal External Exam, Enlarged Uterus ( uterus), Vaginal Bleeding (Small to moderate rubra lochia, no clots) Rectal (Female) Exam: Deferred Back Exam: Reports: Normal Inspection, Full Range of Motion Extremities: Normal Inspection, Normal Range of Motion, Non-Tender, No Pedal Edema, Normal Capillary Refill Skin: Reports: Warm, Dry, Intact Neurological: Reports: No New Focal Deficit Psy/Mental Status: Reports: Alert, Normal Affect, Normal Mood
[2020-01-14] MEDS: Witch Hazel Medicated Pads 40/Jar TOP PRN (20:27)
--- NOTE | 2020-01-15 07:39 | PCM.DCSUM1 ---
Discharge Summary - Hospital Course Free Text/Narrative:: Discharge home with baby. Follow up in the clinic in 6 weeks for routine visit. Diagnosis: Stroke: No Modified Ryley Scale: No Symptoms at All Modified [place] Scale Score: 0 - Discharge Data Discharge Date: 01/15/20 Discharge Disposition: Home, Self-Care 01 Condition: Good - Referral to Home Health Primary Care Physician: Michele Dent, DO - Discharge Diagnosis/Problem(s) (1) (spontaneous vaginal delivery) SNOMED Code(s): 684232013 ICD Code: O80 - ENCOUNTER FOR FULL-TERM UNCOMPLICATED DELIVERY Status: Acute Priority: High Current Visit: Yes - Patient Instructions Diet: Usual Diet as Tolerated, Regular Diet as Tolerated, Drink 8-10+ Glasses/Day Activity: As Tolerated, No Strenuous Activities Driving: May Drive Today Showering/Bathing: May Shower Showering/Bathing, Other: Sitz baths for comfort Notify Provider of: Fever, Increased Pain, Swelling and Redness, Drainage, Nausea and/or Vomiting - Discharge Plan *PRESCRIPTION DRUG MONITORING PROGRAM REVIEWED*: No *COPY OF PRESCRIPTION DRUG MONITORING REPORT IN PATIENT MARIAH: No Home Medications: Home Meds Pnv No.95/Ferrous Fum/Folic AC [ Vitamins Tablet] 1 tab PO DAILY 10/26/19 [History] Butalbital/Aspirin/Caffeine [Twpmos-Eknyhqy-Jzllv 50-325-40] 1 each PO Q6H PRN 12/03/19 [History] Oxygen Therapy Mode: Room Air Patient Handouts: Baby Blues, Care After Vaginal Delivery Referrals: [facility] [Outside] Arya Wyatt MD [Physician] - 02/23/20 3:00 pm - Discharge Summary/Plan Comment DC Time >30 min.: Yes - General Info Date of Service: 01/15/20 Admission Dx/Problem (Free Text: Patient Status Order with Admit Dx/Problem 01/12/20 09:44 Patient Status [ADT] Routine Admission Diagnosis/Problem Admission Diagnosis/Problem 01/12/20 10:38 24yo EDC 01/31/2020 37 2/7wks A+, RI, GBS neg. Admitting to L&D due to elevated BP. IOL. Functional Status: Reports: Pain Controlled, Tolerating Diet, Ambulating, Urin ating - Review of Systems General: Reports: No Symptoms HEENT: Reports: No Symptoms Pulmonary: Reports: No Symptoms Cardiovascular: Reports: No Symptoms Gastrointestinal: Reports: No Symptoms Genitourinary: Reports: No Symptoms Musculoskeletal: Reports: No Symptoms Skin: Reports: No Symptoms Neurological: Reports: No Symptoms Psychiatric: Reports: No Symptoms - Patient Data Vitals - Most Recent: Last Vital Signs Temp 97.9 F 01/15/20 05:00 Pulse 71 01/15/20 05:00 Resp 16 01/15/20 05:00 BP 111/50 L 01/15/20 05:00 Pulse Ox 98 01/15/20 05:00 Weight - Most Recent: 170 lb Med Orders - Current: Current Medications Acetaminophen (Tylenol Extra Strength) 500 mg PO Q4H PRN PRN Reason: Pain Acetaminophen (Tylenol Extra Strength) 1,000 mg PO Q4H PRN PRN Reason: Pain Last Admin: 01/14/20 15:34 Dose: 1,000 mg Documented by: Benzocaine/Menthol (Dermoplast Pain Relief 20%-0.5% [place]) 78 gm TOP ASDIRECTED PRN PRN Reason: Perineal Comfort Measure Last Admin: 01/13/20 12:44 Dose: 1 canister Documented by: Bisacodyl (Dulcolax) 10 mg RECTAL ONETIME PRN PRN Reason: Constipation Docusate Sodium (Colace) 100 mg PO BID PRN PRN Reason: Constipation Emollient Ointment (Lansinoh Hpa) 0 gm TOP ASDIRECTED PRN PRN Reason: Sore Nipples Last Admin: 01/13/20 12:44 Dose: 7 tube Documented by: Ibuprofen (Motrin) 400 mg PO Q4H PRN PRN Reason: Pain Ibuprofen (Motrin) 800 mg PO Q6H PRN PRN Reason: Pain Last Admin: 01/13/20 22:33 Dose: 800 mg Documented by: Oxycodone HCl (Oxycodone) 5 mg PO Q2H PRN PRN Reason: Pain Witch Vikki (Tucks) 1 pad TOP ASDIRECTED PRN PRN Reason: comfort care Last Admin: 01/14/20 20:27 Dose: 1 tub Documented by: Discontinued Medications Acetaminophen (Tylenol) 1,000 mg PO Q6H PRN PRN Reason: mild pain and fever Last Admin: 01/12/20 18:22 Dose: 975 mg Documented by: Butorphanol Tartrate (Stadol) 1 mg IVPUSH ONETIME ONE Stop: 01/13/20 00:33 Last Admin: 01/13/20 00:47 Dose: 1 mg Documented by: Carboprost Tromethamine (Hemabate Ds) 250 mcg IM ASDIRECTED PRN PRN Reason: Post Hemorrhage Hydroxyzine HCl (Atarax) 50 mg PO Q6H PRN PRN Reason: Other Last Admin: 01/12/20 21:33 Dose: 50 mg Documented by: Oxytocin/Sodium Chloride (Oxytocin 30 Unit/500 Ml-Ns) 30 unit in 500 mls @ 999 mls/hr IV TITRATE KIKI Last Admin: 01/13/20 08:47 Dose: 999 mls/hr Documented by: Tranexamic Acid 1,000 mg/ (Sodium Chloride) 110 mls @ 660 mls/hr IV ONETIME PRN PRN Reason: Bleeding Oxytocin/Sodium Chloride (Oxytocin 30 Unit/500 Ml-Ns) 30 unit in 500 mls @ 2 mls/hr IV TITRATE KIKI; Protocol Lactated Ringer's (Ringers, Lactated) 1,000 mls @ 150 mls/hr IV ASDIRECTED KIKI Last Admin: 01/13/20 01:12 Dose: 150 mls/hr Documented by: Ropivacaine (Naropin 0.2%) Confirm Administered Dose 100 mls @ as directed .ROUTE .STK-MED ONE Stop: 01/13/20 00:48 Last Admin: 01/13/20 07:25 Dose: Not Given Documented by: Oxytocin/Sodium Chloride (Oxytocin 30 Unit/500 Ml-Ns) Confirm Administered Dose 0 unit in 0 mls @ as directed .ROUTE .STK-MED ONE Stop: 01/13/20 06:31 Ibuprofen (Motrin) 800 mg PO Q6H PRN PRN Reason: Pain Last Admin: 01/13/20 12:45 Dose: 800 mg Documented by: Lidocaine HCl (Xylocaine 1%) 50 ml INJECT ONETIME PRN PRN Reason: Laceration repair Methylergonovine Maleate (Methergine) 0.2 mg IM ASDIRECTED PRN PRN Reason: Post Hemorrhage Misoprostol (Cytotec) 200 mcg PO ONETIME PRN PRN Reason: Post Hemorrhage Misoprostol (Cytotec) 25 mcg VAG ONETIME PRN PRN Reason: Cervical Ripening Last Admin: 01/12/20 11:22 Dose: 25 mcg Documented by: Misoprostol (Cytotec) 25 mcg VAG Q4H PRN PRN Reason: Cervical Ripening Misoprostol (Cytotec) 25 mcg PO Q4H PRN PRN Reason: Cervical Ripening Last Admin: 01/12/20 20:25 Dose: 25 mcg Documented by: Misoprostol (Cytotec) 25 mcg VAG Q4H PRN PRN Reason: Other Last Admin: 01/12/20 20:25 Dose: 25 mcg Documented by: Nalbuphine HCl (Nubain) 10 mg IVPUSH Q1H PRN PRN Reason: Pain (severe 7-10) Ondansetron HCl (Zofran) 4 mg IVPUSH Q4H PRN PRN Reason: Nausea/Vomiting Sodium Chloride (Saline Flush) 10 ml FLUSH ASDIRECTED PRN PRN Reason: Keep Vein Open Sodium Chloride (Saline Flush) 2.5 ml FLUSH ASDIRECTED PRN PRN Reason: Keep Vein Open Sodium Chloride (Normal Saline) 10 ml IV ASDIRECTED PRN PRN Reason: IV Use Sterile Water (Sterile Water For Irrigation) 1,000 ml IRR ASDIRECTED PRN PRN Reason: delivery Terbutaline Sulfate (Brethine) 0.25 mg SUBCUT ASDIRECTED PRN PRN Reason: Tacysystole - Exam General: Reports: Alert, Oriented, Cooperative, No Acute Distress Lungs: Reports: Normal Respiratory Effort Cardiovascular: Reports: Regular Rate, Regular Rhythm GI/Abdominal Exam: Soft, Non-Tender, Guarding Rectal (Female) Exam: Deferred Back Exam: Reports: Normal Inspection, Full Range of Motion Extremities: Normal Inspection, Normal Range of Motion, Non-Tender, Normal Capillary Refill Skin: Reports: Warm, Dry, Intact Neurological: Reports: No New Focal Deficit, Normal Speech, Normal Tone, St rength Equal Bilateral, Sensation Intact Psy/Mental Status: Reports: Alert, Normal Affect, Normal Mood
== END 2020-01-15 12:27 | disposition home or self-care (01) | DRG 807 ==
LOC: MW.OBCHECK 09:33 → MW.OB 09:33 → MW.OBCHECK 09:43 → OBSVTOIN 01-13 09:18 → MW.OB 01-13 14:39
PROVIDERS: ADMIT Obstetrics & Gynecology; ATTEND Obstetrics & Gynecology
PROC: 10E0XZZ Delivery of Products of Conception, External Approach (ICD-10-PCS; principal; 2020-01-13)
PROC: 3E0P7VZ Introduction of Hormone into Female Reproductive, Via Natural or Artificial Opening (ICD-10-PCS; 2020-01-13)
PROC: 3E0R3BZ Introduction of Anesthetic Agent into Spinal Canal, Percutaneous Approach (ICD-10-PCS; 2020-01-13)
PROC: 00HU33Z Insertion of Infusion Device into Spinal Canal, Percutaneous Approach (ICD-10-PCS; 2020-01-13)
DX: O16.4 Unspecified maternal hypertension, complicating childbirth (principal); Z37.0 Single live birth; O99.52 Diseases of the respiratory system complicating childbirth; J45.909 Unspecified asthma, uncomplicated; O69.81X0 Labor and delivery complicated by cord around neck, without compression, not applicable or unspecified; Z3A.37 37 weeks gestation of pregnancy; Z20.828 Contact with and (suspected) exposure to other viral communicable diseases
CPT/HCPCS: 36415; 59025; 59409; 80053; 81001; 82239; 82570; 84156; 84550; 85027; 86592; 86850; 86900; 86901; A9270-GY; J0595; J2590; J7120; U0002

== ENCOUNTER 2020-08-29 15:14 | Emergency (ER) | payer MEDICAID ==
--- NOTE | 2020-08-29 17:02 | CR ---
INDICATION: Fall. TECHNIQUE: Left foot radiographs, 2 nonweightbearing views. COMPARISON: None available. FINDINGS: No dislocation or acute fracture. Joint spaces are maintained. Soft tissues unremarkable. IMPRESSION: No acute osseous abnormality. Dictated by Michael Chand MD @ 08/29/2020 5:00:48 PM Dictated by: Michael Chand MD @ 08/29/2020 17:00:53 (Electronically Signed)
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
== END 2020-08-29 19:17 | disposition home or self-care (01) ==
LOC: MW.ED 15:14
DX: S99.922A Unspecified injury of left foot, initial encounter (principal); Z88.0 Allergy status to penicillin; Z88.1 Allergy status to other antibiotic agents; Z91.048 Other nonmedicinal substance allergy status; X50.1XXA Overexertion from prolonged static or awkward postures, initial encounter
CPT/HCPCS: 73620-26-LT; 73620-LT; 99282; 99283-25